=== PATIENT | male | born 1940 | race Caucasian/White ===

== ENCOUNTER 2020-11-26 10:34 | Outpatient (REF) | payer MEDICARE, SELFPAY ==
[2020-11-26 12:11] LABS: MANUAL DIFF FLAG NO
[2020-11-26 12:14] LABS: Basophils Absolute Auto 0.1 X10*3/uL (0.0-0.2); Basophils Percent Auto 0.8 % (0-2); Eosinophils Absolute Auto 0.3 X10*3/uL (0.0-0.4); Eosinophils Percent Auto 4.2 % (0-4); Hematocrit 42.6 % (42-52); Imm Gran Abs Auto 0.02 X10*3/uL (0.00-0.03); Imm Gran Pct Auto 0.3 % (0.0-0.4); Lymphocytes Absolute Auto 1.7 X10*3/uL (1.2-4.9); Lymphocytes Percent Auto 22.5 % (20-40); Mean Corpuscular HGB Conc 32.9 g/dl (31.0-36.0); Mean Corpuscular Hemoglobin 30.6 pg (27.0-33.0); Monocytes Absolute Auto 0.6 X10*3/uL (0.1-1.2); Monocytes Percent Auto 7.8 % (2-11); Neutrophils Absolute Auto 4.8 X10*3/uL (2.0-8.3); Neutrophils Percent Auto 64.4 % (45-73); Platelet Count 138 X10*3/uL (160-400); Red Blood Count 4.58 X10*6/uL (4.60-5.80); Red Cell Distribution Width 12.8 % (11.0-16.0); White Blood Count 7.4 X10*3/uL (4.8-10.8)
[2020-11-26 12:27] LABS: Alanine Aminotransferase 20 U/L (0-40); Albumin Level 4.4 g/dL (3.5-5.0); Alkaline Phosphatase 56 U/L (39-117); Anion Gap 13 (12-20); Aspartate Amino Transferase 23 U/L (5-37); Bilirubin Total 0.4 mg/dL (0.0-1.0); Blood Urea Nitrogen 19 mg/dL (9-16); Carbon Dioxide 27 mmol/L (22-29); Chloride 105 mmol/L (96-108); Cholesterol 169 mg/dL; Estimated Glomerular Filt Rate 59; Glucose Random 132 mg/dL (60-115); HDL Cholesterol 62 mg/dL; LDL Cholesterol Calculated 88 mg/dl; Potassium 4.6 mmol/l (3.3-5.1); Sodium 140 mmol/L (135-145); Total Protein 6.9 g/dL (6.5-8.0); Triglycerides 95 mg/dL
[2020-11-26 12:36] LABS: Creatinine Urine 138.04 mg/dL
[2020-11-26 12:42] LABS: Estimated Average Glucose 157 mg/dL; Hemoglobin A1c % 7.1 %
== END 2020-11-26 10:35 | disposition home or self-care (01) ==
LOC: HO.LAB 10:34
PROVIDERS: PCP Internal Medicine Medical Oncology; Visit Provider Internal Medicine Medical Oncology
DX: I12.9 Hypertensive chronic kidney disease with stage 1 through stage 4 chronic kidney disease, or unspecified chronic kidney disease (principal); E11.22 Type 2 diabetes mellitus with diabetic chronic kidney disease; N18.9 Chronic kidney disease, unspecified; E78.2 Mixed hyperlipidemia; N40.0 Benign prostatic hyperplasia without lower urinary tract symptoms
CPT/HCPCS: 36415; 80053; 80061; 82043; 83036; 84153; 85025

== ENCOUNTER 2021-03-23 08:03 | Outpatient (REF) | payer MEDICARE, SELFPAY ==
[2021-03-23 08:58] LABS: MANUAL DIFF FLAG NO
[2021-03-23 09:01] LABS: Basophils Percent Auto 0.7 % (0-2); Eosinophils Absolute Auto 0.4 X10*3/uL (0.0-0.4); Eosinophils Percent Auto 6.1 % (0-4); Hemoglobin 13.6 g/dl (14.0-18.0); Imm Gran Abs Auto 0.02 X10*3/uL (0.00-0.03); Imm Gran Pct Auto 0.3 % (0.0-0.4); Lymphocytes Absolute Auto 1.8 X10*3/uL (1.2-4.9); Mean Corpuscular HGB Conc 33.2 g/dl (31.0-36.0); Mean Corpuscular Hemoglobin 30.7 pg (27.0-33.0); Mean Corpuscular Volume 92.6 fL (80-98); Monocytes Absolute Auto 0.6 X10*3/uL (0.1-1.2); Monocytes Percent Auto 9.7 % (2-11); Neutrophils Absolute Auto 3.1 X10*3/uL (2.0-8.3); Neutrophils Percent Auto 52.2 % (45-73); Platelet Count 139 X10*3/uL (160-400); Red Blood Count 4.43 X10*6/uL (4.60-5.80); Red Cell Distribution Width 12.7 % (11.0-16.0); White Blood Count 5.9 X10*3/uL (4.8-10.8)
[2021-03-23 09:22] LABS: Alanine Aminotransferase 15 U/L (0-40); Albumin Level 4.4 g/dL (3.5-5.0); Alkaline Phosphatase 54 U/L (39-117); Anion Gap 14 (12-20); Aspartate Amino Transferase 21 U/L (5-37); Bilirubin Total 0.7 mg/dL (0.0-1.0); Blood Urea Nitrogen 21 mg/dL (9-16); Calcium 9.6 mg/dL (8.4-10.2); Carbon Dioxide 27 mmol/L (22-29); Chloride 104 mmol/L (96-108); Cholesterol 155 mg/dL; Estimated Glomerular Filt Rate 57; Glucose Random 151 mg/dL (60-115); HDL Cholesterol 56 mg/dL; LDL Cholesterol Calculated 86 mg/dl; Potassium 4.4 mmol/L (3.3-5.1); Sodium 141 mmol/L (135-145); Total Protein 6.7 g/dL (6.5-8.0); Triglycerides 67 mg/dL
[2021-03-23 09:27] LABS: Estimated Average Glucose 146 mg/dL; Hemoglobin A1c % 6.7 %
[2021-03-23 09:45] LABS: Prostate Specific Antigen 1.06 ng/mL (<0.05-4.0)
[2021-03-23 10:35] LABS: Creatinine Urine 105.25 mg/dL; Microalbum/Creatinine Ratio Ur 5.7 ug/mg cr
== END 2021-03-23 08:04 | disposition home or self-care (01) ==
LOC: HO.LAB 08:03
PROVIDERS: Visit Provider Internal Medicine Medical Oncology
DX: Z12.5 Encounter for screening for malignant neoplasm of prostate (principal); I12.9 Hypertensive chronic kidney disease with stage 1 through stage 4 chronic kidney disease, or unspecified chronic kidney disease; E11.22 Type 2 diabetes mellitus with diabetic chronic kidney disease; N18.9 Chronic kidney disease, unspecified; E78.2 Mixed hyperlipidemia; N40.0 Benign prostatic hyperplasia without lower urinary tract symptoms
CPT/HCPCS: 36415; 80053; 80061; 82043; 83036; 84153; 85025

== ENCOUNTER 2021-06-25 09:27 | Outpatient (REF) | payer MEDICARE, SELFPAY ==
[2021-06-25 10:17] LABS: MANUAL DIFF FLAG NO
[2021-06-25 10:31] LABS: Estimated Average Glucose 154 mg/dL; Hemoglobin A1C 190.6468 umol/L
[2021-06-25 10:37] LABS: Basophils Absolute Auto 0.1 X10*3/uL (0.0-0.2); Basophils Percent Auto 1.2 % (0-2); Eosinophils Absolute Auto 0.3 X10*3/uL (0.0-0.4); Eosinophils Percent Auto 6.1 % (0-4); Hematocrit 40.8 % (42-52); Hemoglobin 13.4 g/dl (14.0-18.0); Imm Gran Abs Auto 0.01 X10*3/uL (0.00-0.03); Imm Gran Pct Auto 0.2 % (0.0-0.4); Lymphocytes Absolute Auto 1.7 X10*3/uL (1.2-4.9); Lymphocytes Percent Auto 29.8 % (20-40); Mean Corpuscular HGB Conc 32.8 g/dl (31.0-36.0); Mean Corpuscular Hemoglobin 30.8 pg (27.0-33.0); Mean Corpuscular Volume 93.8 fL (80-98); Mean Platelet Volume 13.1 fL (9.4-12.4); Monocytes Absolute Auto 0.6 X10*3/uL (0.1-1.2); Monocytes Percent Auto 10.9 % (2-11); Neutrophils Absolute Auto 2.9 X10*3/uL (2.0-8.3); Neutrophils Percent Auto 51.8 % (45-73); Platelet Count 126 X10*3/uL (160-400); Red Blood Count 4.35 X10*6/uL (4.60-5.80); Red Cell Distribution Width 12.6 % (11.0-16.0); White Blood Count 5.6 X10*3/uL (4.8-10.8)
[2021-06-25 10:44] LABS: Alanine Aminotransferase 13 U/L (0-40); Albumin Level 4.2 g/dL (3.5-5.0); Alkaline Phosphatase 57 U/L (39-117); Anion Gap 11 (12-20); Aspartate Amino Transferase 18 U/L (5-37); Bilirubin Total 0.5 mg/dL (0.0-1.0); Blood Urea Nitrogen 25 mg/dL (9-16); Carbon Dioxide 26 mmol/L (22-29); Chloride 109 mmol/L (96-108); Cholesterol 134 mg/dL; Estimated Glomerular Filt Rate > 60; Glucose Fasting 141 mg/dL (60-99); HDL Cholesterol 54 mg/dL; LDL Cholesterol Calculated 72 mg/dl; Potassium 4.5 mmol/L (3.3-5.1); Sodium 141 mmol/L (135-145); Total Protein 6.6 g/dL (6.5-8.0); Triglycerides 44 mg/dL
== END 2021-06-25 09:28 | disposition home or self-care (01) ==
LOC: HO.LAB 09:27
PROVIDERS: PCP Internal Medicine Medical Oncology; Visit Provider Internal Medicine Medical Oncology
DX: I12.9 Hypertensive chronic kidney disease with stage 1 through stage 4 chronic kidney disease, or unspecified chronic kidney disease (principal); N18.9 Chronic kidney disease, unspecified; E11.22 Type 2 diabetes mellitus with diabetic chronic kidney disease; E78.2 Mixed hyperlipidemia; E66.9 Obesity, unspecified
CPT/HCPCS: 36415; 80053; 80061; 83036; 85025

== ENCOUNTER 2021-09-25 11:07 | Outpatient (REF) | payer MEDICARE, SELFPAY ==
[2021-09-25 11:12] LABS: MANUAL DIFF FLAG NO
[2021-09-25 11:53] LABS: Basophils Absolute Auto 0.1 X10*3/uL (0.0-0.2); Basophils Percent Auto 0.8 % (0-2); Eosinophils Absolute Auto 0.3 X10*3/uL (0.0-0.4); Eosinophils Percent Auto 5.5 % (0-4); Hematocrit 43.4 % (42-52); Hemoglobin 14.3 g/dl (14.0-18.0); Imm Gran Abs Auto 0.02 X10*3/uL (0.00-0.03); Imm Gran Pct Auto 0.3 % (0.0-0.4); Lymphocytes Absolute Auto 1.5 X10*3/uL (1.2-4.9); Lymphocytes Percent Auto 24.2 % (20-40); Mean Corpuscular HGB Conc 32.9 g/dl (31.0-36.0); Mean Corpuscular Hemoglobin 31.1 pg (27.0-33.0); Mean Corpuscular Volume 94.3 fL (80-98); Monocytes Absolute Auto 0.5 X10*3/uL (0.1-1.2); Monocytes Percent Auto 8.1 % (2-11); Neutrophils Absolute Auto 3.8 X10*3/uL (2.0-8.3); Neutrophils Percent Auto 61.1 % (45-73); Platelet Count 131 X10*3/uL (160-400); Red Cell Distribution Width 12.8 % (11.0-16.0); White Blood Count 6.2 X10*3/uL (4.8-10.8)
[2021-09-25 12:07] LABS: Estimated Average Glucose 154 mg/dL
[2021-09-25 12:24] LABS: Alanine Aminotransferase 20 U/L (0-40); Albumin Level 4.4 g/dL (3.5-5.0); Alkaline Phosphatase 59 U/L (39-117); Anion Gap 14 (12-20); Aspartate Amino Transferase 23 U/L (5-37); Bilirubin Total 0.5 mg/dL (0.0-1.0); Blood Urea Nitrogen 22 mg/dL (9-16); Calcium 9.3 mg/dL (8.4-10.2); Carbon Dioxide 26 mmol/L (22-29); Chloride 105 mmol/L (96-108); Cholesterol 159 mg/dL; Estimated Glomerular Filt Rate 53; Glucose Fasting 144 mg/dL (60-99); HDL Cholesterol 53 mg/dL; LDL Cholesterol Calculated 88 mg/dl; Sodium 140 mmol/L (135-145); Total Protein 6.9 g/dL (6.5-8.0); Triglycerides 92 mg/dL
== END 2021-09-25 11:08 | disposition home or self-care (01) ==
LOC: HO.LAB 11:07
PROVIDERS: PCP Internal Medicine Medical Oncology; Visit Provider Internal Medicine Medical Oncology
DX: I12.9 Hypertensive chronic kidney disease with stage 1 through stage 4 chronic kidney disease, or unspecified chronic kidney disease (principal); E11.22 Type 2 diabetes mellitus with diabetic chronic kidney disease; N18.9 Chronic kidney disease, unspecified; E78.2 Mixed hyperlipidemia
CPT/HCPCS: 36415; 80053; 80061; 83036; 85025

== ENCOUNTER 2021-10-21 10:50 | Outpatient (REF) | payer MEDICARE, SELFPAY ==
[2021-10-21 10:58] VITALS: BP 144/64; PULSE 68; RESP 16; TEMP 36.3; O2SAT 98
[2021-10-21 11:00] VITALS: BMI 29.2
== END 2021-10-21 10:51 | disposition home or self-care (01) ==
LOC: HO.MS 10:50
PROVIDERS: PCP Internal Medicine Medical Oncology; Visit Provider Ophthalmology
PROC: (CPT 66821; principal; 2021-10-21 13:00)
DX: H26.492 Other secondary cataract, left eye (principal); H40.1131 Primary open-angle glaucoma, bilateral, mild stage; I10 Essential (primary) hypertension; E11.9 Type 2 diabetes mellitus without complications; Z96.1 Presence of intraocular lens; Z79.899 Other long term (current) drug therapy; Z88.0 Allergy status to penicillin
CPT/HCPCS: 66821

== ENCOUNTER 2022-11-05 08:30 | Outpatient (REF) | payer MEDICARE, SELFPAY ==
[2022-11-05 08:58] LABS: MANUAL DIFF FLAG NO
[2022-11-05 10:07] LABS: Basophils Absolute Auto 0.1 X10*3/uL (0.0-0.2); Basophils Percent Auto 1.3 % (0-2); Eosinophils Absolute Auto 0.4 X10*3/uL (0.0-0.4); Eosinophils Percent Auto 6.3 % (0-4); Hemoglobin 13.6 g/dl (14.0-18.0); Imm Gran Abs Auto 0.01 X10*3/uL (0.00-0.03); Imm Gran Pct Auto 0.2 % (0.0-0.4); Lymphocytes Percent Auto 31.2 % (20-40); Mean Corpuscular HGB Conc 33.2 g/dl (31.0-36.0); Mean Corpuscular Hemoglobin 30.2 pg (27.0-33.0); Mean Corpuscular Volume 91.1 fL (80.0-98.0); Mean Platelet Volume 13.6 fL (9.4-12.4); Monocytes Absolute Auto 0.6 X10*3/uL (0.1-1.2); Monocytes Percent Auto 9.2 % (2-11); Neutrophils Absolute Auto 3.3 x10*3/uL (2.0-8.3); Neutrophils Percent Auto 51.8 % (45-73); Platelet Count 130 X10*3/uL (160-400); Red Cell Distribution Width 12.7 % (11.0-16.0); White Blood Count 6.3 X10*3/uL (4.8-10.8)
[2022-11-05 10:30] LABS: Alanine Aminotransferase 24 U/L (0-40); Albumin Level 4.3 g/dL (3.5-5.0); Alkaline Phosphatase 55 U/L (39-117); Anion Gap 13 (12-20); Aspartate Amino Transferase 29 U/L (5-37); Bilirubin Total 0.4 mg/dL (0.0-1.0); Blood Urea Nitrogen 21 mg/dL (9-16); Carbon Dioxide 25 mmol/L (22-29); Chloride 106 mmol/L (96-108); Estimated Glomerular Filt Rate 60; Glucose Random 135 mg/dL (60-115); Potassium 4.6 mmol/L (3.3-5.1); Sodium 139 mmol/L (135-145); Total Protein 6.5 g/dL (6.5-8.0)
[2022-11-05 10:40] LABS: Estimated Average Glucose 154 mg/dL
[2022-11-05 11:10] LABS: Creatinine Urine 87.73 mg/dL; Microalbum/Creatinine Ratio Ur 6.8 ug/mg cr
== END 2022-11-05 08:31 | disposition home or self-care (01) ==
LOC: HO.LAB 08:30
PROVIDERS: PCP Internal Medicine Medical Oncology; Visit Provider Internal Medicine Medical Oncology
DX: E11.22 Type 2 diabetes mellitus with diabetic chronic kidney disease (principal); I12.9 Hypertensive chronic kidney disease with stage 1 through stage 4 chronic kidney disease, or unspecified chronic kidney disease; N18.9 Chronic kidney disease, unspecified; E78.2 Mixed hyperlipidemia
CPT/HCPCS: 36415; 80053; 82043; 83036; 85025

== ENCOUNTER 2022-11-06 13:43 | Outpatient (REF) | payer MEDICARE, SELFPAY ==
[2022-11-11 21:04] LABS: Fecal Fat Qualitative Normal (Normal)
== END 2022-11-06 13:44 | disposition home or self-care (01) ==
LOC: HO.LNP 13:43
PROVIDERS: Visit Provider Internal Medicine Medical Oncology
DX: E78.2 Mixed hyperlipidemia (principal); I12.9 Hypertensive chronic kidney disease with stage 1 through stage 4 chronic kidney disease, or unspecified chronic kidney disease; E11.22 Type 2 diabetes mellitus with diabetic chronic kidney disease; N18.9 Chronic kidney disease, unspecified
CPT/HCPCS: 82705

== ENCOUNTER → 2023-05-04 10:49 | Outpatient (REF) | payer MEDICARE, SELFPAY ==
--- NOTE | 2023-05-04 10:52 | HM_ITS ---
* Total monitoring time about 2 days. * Underlying rhythm is sinus. Average ventricular rate 73/Min. Range 46 to 127/Min. * Frequent ventricular ectopy. [place] of 9%. 17 short runs. Longest 4 beats. * Frequent supraventricular ectopy. [place] of 9.5%. Few brief runs. * No significant pauses or AV blocks. * No patient markers or events in diary. MTDD
== END ==
LOC: HO.CARD 10:49
PROVIDERS: PCP Internal Medicine Medical Oncology; Visit Provider Internal Medicine Medical Oncology
DX: I48.91 Unspecified atrial fibrillation (principal)
CPT/HCPCS: 93225

== ENCOUNTER 2023-07-16 14:35 | Outpatient (AMB) | payer MEDICARE, SELFPAY ==
[2023-07-16 14:38] VITALS: BP 130/60; PULSE 79; BMI 30.4
--- NOTE | 2023-07-16 14:38 | A.OFFVIS_ITS ---
Intake Vital Signs 07/16/23 14:38 Height 5 ft 10 in Weight 211 lb 10.3 oz BMI 30.4 BP 130/60 Blood Pressure Location Lt brachial Position Sitting Pulse 79 Intake Visit Reasons: DEV TECHNICAL MGR/Dr. Garcia/A-fib Intake Note: Business Initiatives Manager/Dr. garcia/afib Health Care Specialist Required: No Allergies amoxicillin Allergy (Unknown, Verified 07/16/23 14:42) hives levofloxacin [Levaquin] Allergy (Unknown, Verified 07/16/23 14:42) Hives procaine [From NOVOCAIN] Allergy (Unknown, Verified 07/16/23 14:42) UNKNOWN shellfish Allergy (Unknown, Uncoded 11/16/19 00:00) anaphylaxis SHELLFISH Adverse Reaction (Severe, Uncoded 08/16/20 16:37) VOMITING Medication List - Last Reconciled 07/16/23 by Simba Garner MD amlodipine 10 mg PO DAILY lisinopril 40 mg PO DAILY metformin ER 500 mg PO DAILY pravastatin 40 mg PO DAILY triamcinolone acetonide 0.1% 1 appl topical BID-TID HPI HPI Comments History of Present Illness Details Thank you for referring Herber in cardiology consultation today for irregular heartbeat. He is a pleasant 83-year-old male with prior history of longstanding hypertension, diabetes as well as hyperlipidemia. He recently on annual physical exam he was noted to have irregular pulse. For this he underwent a 48 hour Holter monitor which showed baseline normal sinus rhythm with frequent PACs. He had no evidence of atrial fibrillation. He was referred here for further evaluation for his cardiac arrhythmias. Patient denies any symptoms of palpitations or prolonged fast heart rate or lightheadedness or syncope. He says he remains very active on a day-to-day basis. Denies any orthopnea, PND, leg edema. Denies any exertional chest pain. He said nighttime now he started noticing that his pulse is slightly irregular when he listens to them. Again he has no symptoms related to it. [facility] Medical History Diabetes mellitus HTN (hypertension) Hyperlipidemia Social History Alcohol intake: current Alcohol intake frequency: holidays/special occasions only Patient Tobacco Use Status: Never used Tobacco Review of Systems ENT Reports dizziness Card Denies chest pain, Denies chest pain at rest, Denies chest pain with activity, Denies rapid heart rate, Denies pedal edema, Denies edema, Denies leg edema, Denies lightheadedness, Denies palpitations, Denies dyspnea, Denies dyspnea on exertion and Denies orthopnea Resp Denies cough, Denies dyspnea and Denies dyspnea on exertion GI Denies hematochezia and Denies change in stool character Musc Denies abnormal gait, Reports limited range of motion, Reports muscle cramps, Denies muscle weakness, Denies numbness, Denies radiating pain into limb, Denies stiffness and Denies tingling Neuro Denies abnormal gait, Reports dizziness, Denies numbness and Denies tingling Endo Denies palpitations Physical Exam Vital Signs: Last Vital Signs Pulse 79 07/16/23 14:38 BP 130/60 07/16/23 14:38 BMI result Body Mass Index 30.4 Const General: cooperative, comfortable, no acute distress, well developed, alert, awake, Physically active and well groomed Nutritional Appearance: well nourished and overweight Orientation/consciousness: patient oriented x3 Limitations: no limitations HEENT Head: Yes normocephalic and Yes atraumatic Neck Neck: Yes trachea midline, Yes supple and Yes no JVD Resp Effort & Inspection: normal respiratory effort Auscultation: clear to auscultation bilaterally Cardio Jugular venous distension: no JVD Palpation: normal PMI Rate: regular rate Rhythm: abnormal rhythm with ectopic beats Heart sounds: S1 normal heart sound present, S2 normal heart sound present, no click, no gallops, no murmurs and no rubs GI Auscultation: normal bowel sounds Skin General skin exam: no rashes or lesions noted Neuro General: patient oriented x3 and no focal motor deficits Extrem General: Yes no clubbing, cyanosis or edema Office Procedures EKG Details: EKG shows normal sinus rhythm with frequent PACs [id number], Complete Assessment & Plan Assessment & Plan (1) Cardiac arrhythmia: Code(s): I49.9 - Cardiac arrhythmia, unspecified Plan: Patient with frequent PACs with total burden of about 9% as well as frequent PVCs with total burden of 9%. Patient has no symptoms whatsoever related to this. Will obtain an echocardiogram to evaluate LV structure and function. No pharmacotherapy is recommended for this as patient is completely asymptomatic. Association between frequent PACs and atrial fibrillation was noted. If he develops any significant symptoms of prolonged fast heart rate he is advised to call me. Advised to avoid stimulants. Participation stress mitigation strategies to be pursued. Continue current risk factor modification. Blood pressure is well optimized. Continue management of diabetes hyperlipidemia through your office. Advised to call me with any exertional symptoms. Will follow up in the clinic in 1 year's time, sooner p.r.n.. Orders: Orders CA echo transthoracic complete Today I49.9 - Cardiac arrhythmia, unspecified Coding Level of Care Code New Pt Level 4 (13113) Diagnoses Cardiac arrhythmia I49.9 CPT Codes EKG - CPT: 21160-[id number], Complete ([id number])
== END 2023-07-16 15:00 | disposition home or self-care (01) ==
PROVIDERS: PCP Internal Medicine Medical Oncology; Referring Provider Internal Medicine Medical Oncology; Visit Provider Internal Medicine Cardiovascular Disease
DX: I49.9 Cardiac arrhythmia, unspecified (principal)
CPT/HCPCS: 93010; 99204

== ENCOUNTER → 2023-07-16 14:35 | Outpatient (BNVA) | payer MEDICARE, SELFPAY | PROVIDERS: PCP Internal Medicine Medical Oncology; Referring Provider Internal Medicine Medical Oncology; Visit Provider Internal Medicine Cardiovascular Disease | DX: I49.9 Cardiac arrhythmia, unspecified (principal) | CPT/HCPCS: 93005; 99202 ==

== ENCOUNTER → 2023-08-20 11:05 | Outpatient (REF) | payer MEDICARE, SELFPAY ==
--- NOTE | 2023-08-20 11:08 | CA_ITS ---
Transthoracic Echocardiogram Patient (Last, First, Middle): Herber Addison, Gender: Male Date of : 1940 Age: 83 Procedure Date: 08/20/2023 Procedure Type: Transthoracic Echocardiogram Location: OP Height: 177.8 cm Weight: 92.53 kg BSA: 2.10 m2 Heart Rate: 100 bpm BP: 140 / 70 mmHg Solar Project Coordination Specialist: TO Referring MD: Simba Garner MD Symptoms: I49.9 - Cardiac arrhythmia, unspecified Study Quality: Adequate w contrast ECG Rhythm: Atrial Fibrillation Conclusions: - Normal left ventricular size and systolic function. There is mildly increased left ventricular wall thickness. The visually estimated ejection fraction is between 55-60%. - Mildly increased right ventricular cavity size. There is normal right ventricular systolic function. Findings Procedure Information Contrast agent, definity, is being given per protocol without apparent complications. Left Ventricle Normal left ventricular size and systolic function. There is mildly increased left ventricular wall thickness. The visually estimated ejection fraction is between 55-60%. There is no evidence of regional wall motion abnormalities. Diastolic function is indeterminate on the basis of available data. Right Ventricle Mildly increased right ventricular cavity size. There is normal right ventricular systolic function. Atria The left atrium is likely dilated. The right atrium is mildly dilated. Aortic Valve There is a normal trileaflet aortic valve. There is mild calcification of the aortic valve. There is no aortic valve stenosis. There is no aortic valve regurgitation. Mitral Valve The mitral valve appears normal. There is no mitral valve regurgitation. There is no mitral valve stenosis. Pulmonic Valve Normal pulmonic valve structure and function. There is no pulmonic valve regurgitation. Tricuspid Valve Normal tricuspid valve structure and function. There is trace tricuspid valve regurgitation. Normal right atrial pressure. There is no evidence of pulmonary hypertension. Great Vessels All visible segments of the aorta are normal in size. The visualized portions of the pulmonary artery and branches are normal. Venous The inferior vena cava is normal in size and collapses greater than 50% with inspiration. Pericardium/Pleural There is no evidence of pericardial effusion. Prior Study Comparison Changes noted compared to prior study dated: 04/15/2019. Diastolic function indeterminate as the patient is in Afib. Measurements 2D Linear Measurements IVSd: 1.40 0.6-0.9/0.6-1.0 cm LVIDd: 4.20 3.9-5.3/4.2-5.9 cm LVIDd Index: 2.00 2.4-3.2/2.2-3.1 cm/m2 LVIDs: 2.60 2.0-3.6 cm LVPWd: 1.00 0.7-1.1 cm LA Diam: 3.90 2.7-3.8/3.0-4.0 cm LAIDs Index: 1.86 1.5-2.3 cm/m2 LV Mass: 221.94 67-162/88-224 g LV Mass Index: 105.69 43-95/49-115 g/m2 LVOT Diam: 2.10 3.0+(-)1.3 cm 2D Systolic Function EF 4C: 62.40 >55% EF 2C: 60.90 >55% EF BiP: 60.60 >55% Mitral Valve MV Pk E: 1.06 MV Decel Time: 188.00 E'Lateral: 11.60 E'Medial: 7.72 E/E' Med: 13.70 E/E' Lat: 9.10 PHT: 55.00 MVA PHT: 4.00 Decel [place]: 5.67 Aortic Valve AoV Pk Ananda: 1.20 AoV Pk Grad: 6.00 SENTHIL: 2.18 LVOT LVOT Pk Ananda: 0.76 LVOT Mn Ananda: 0.52 LVOT VTI: 0.15 LVOT Pk Grad: 2.00 LVOT Mn Grad: 1.00 LVOT Diam: 2.10 LVOT Area: 3.46 Diastolic Function MV Pk E: 1.06 E'Medial: 7.72 E/E' Med: 13.70 E' Laterial: 11.60 E/E' Lat: 9.10 Right Ventricle TAPSE (mm): 25.40 TVS' Ananda: 15.30 Tricuspid Valve TR Pk Ananda: 2.08 TR Pk Grad: 17.00 RA Press: 3.00 RVSP: 20.00 Great Vessels Aorta Sinus of Valsalva: 3.20 2.0-3.5 cm Ao Asc: 3.20 2.1-3.4 cm Updated in Other Vendor System with Status of Final Moses Mae MD electronically signed on 08/22/2023 6:06:11 PM with status of Final
[2023-08-20 12:47] LABS: MANUAL DIFF FLAG NO
[2023-08-20 13:26] LABS: Basophils Absolute Auto 0.1 X10*3/uL (0.0-0.2); Basophils Percent Auto 1.1 % (0-2); Eosinophils Absolute Auto 0.3 X10*3/uL (0.0-0.4); Eosinophils Percent Auto 4.3 % (0-4); Hematocrit 45.1 % (42.0-52.0); Imm Gran Abs Auto 0.01 X10*3/uL (0.00-0.03); Imm Gran Pct Auto 0.2 % (0.0-0.4); Lymphocytes Absolute Auto 1.7 X10*3/uL (1.2-4.9); Lymphocytes Percent Auto 26.3 % (20-40); Mean Corpuscular HGB Conc 33.3 g/dl (31.0-36.0); Mean Corpuscular Hemoglobin 30.7 pg (27.0-33.0); Mean Corpuscular Volume 92.2 fL (80.0-98.0); Mean Platelet Volume 13.1 fL (9.4-12.4); Monocytes Absolute Auto 0.5 X10*3/uL (0.1-1.2); Monocytes Percent Auto 8.6 % (2-11); Neutrophils Absolute Auto 3.8 x10*3/uL (2.0-8.3); Neutrophils Percent Auto 59.5 % (45-73); Platelet Count 145 X10*3/uL (160-400); Red Blood Count 4.89 X10*6/uL (4.60-5.80); Red Cell Distribution Width 12.8 % (11.0-16.0); White Blood Count 6.3 X10*3/uL (4.8-10.8)
[2023-08-20 13:33] LABS: Estimated Average Glucose 154 mg/dL
[2023-08-20 14:07] LABS: Creatinine Urine 57.14 mg/dL; Microalbum/Creatinine Ratio Ur 12.2 ug/mg cr (<30)
[2023-08-20 14:19] LABS: Alanine Aminotransferase 14 U/L (0-40); Albumin Level 4.4 g/dL (3.5-5.0); Alkaline Phosphatase 52 U/L (39-117); Anion Gap 14 (12-20); Aspartate Amino Transferase 19 U/L (5-37); Bilirubin Total 0.5 mg/dL (0.0-1.0); Blood Urea Nitrogen 23 mg/dL (9-16); Calcium 9.4 mg/dL (8.4-10.2); Carbon Dioxide 26 mmol/L (22-29); Chloride 105 mmol/L (96-108); Cholesterol 144 mg/dL (<200); Estimated Glomerular Filt Rate 47; Glucose Fasting 143 mg/dL (60-99); HDL Cholesterol 58 mg/dL (>40); LDL Cholesterol Calculated 71 mg/dL (<100); Potassium 4.9 mmol/L (3.3-5.1); Sodium 140 mmol/L (135-145); Total Protein 7.3 g/dL (6.5-8.0); Triglycerides 76 mg/dL (<150)
== END ==
LOC: HO.CARD 11:05
PROVIDERS: PCP Internal Medicine Medical Oncology; Referring Provider Internal Medicine Medical Oncology; Visit Provider Dentist Orthodontics and Dentofacial Orthopedics
DX: I49.9 Cardiac arrhythmia, unspecified (principal); I12.9 Hypertensive chronic kidney disease with stage 1 through stage 4 chronic kidney disease, or unspecified chronic kidney disease; E11.22 Type 2 diabetes mellitus with diabetic chronic kidney disease; N18.9 Chronic kidney disease, unspecified; E78.2 Mixed hyperlipidemia
CPT/HCPCS: 36415; 80053; 80061; 82043; 82570; 83036; 85025; 93306; Q9957

== ENCOUNTER → 2023-08-20 11:08 | Outpatient (BNV) | payer MEDICARE, SELFPAY | PROVIDERS: PCP Internal Medicine Medical Oncology; Referring Provider Internal Medicine Medical Oncology; Visit Provider Internal Medicine Cardiovascular Disease | DX: I48.91 Unspecified atrial fibrillation (principal) | CPT/HCPCS: 93306 ==

== ENCOUNTER 2023-11-18 10:58 | Outpatient (REF) | payer MEDICARE, SELFPAY ==
[2023-11-18 11:14] LABS: MANUAL DIFF FLAG NO
[2023-11-18 13:04] LABS: Basophils Absolute Auto 0.1 X10*3/uL (0.0-0.2); Basophils Percent Auto 0.8 % (0-2); Eosinophils Absolute Auto 0.4 X10*3/uL (0.0-0.4); Eosinophils Percent Auto 5.8 % (0-4); Hematocrit 44.7 % (42.0-52.0); Hemoglobin 14.7 g/dl (14.0-18.0); Imm Gran Abs Auto 0.02 X10*3/uL (0.00-0.03); Imm Gran Pct Auto 0.3 % (0.0-0.4); Lymphocytes Absolute Auto 1.7 X10*3/uL (1.2-4.9); Lymphocytes Percent Auto 28.7 % (20-40); Mean Corpuscular HGB Conc 32.9 g/dl (31.0-36.0); Mean Corpuscular Hemoglobin 30.4 pg (27.0-33.0); Mean Corpuscular Volume 92.4 fL (80.0-98.0); Mean Platelet Volume 13.1 fL (9.4-12.4); Monocytes Absolute Auto 0.5 X10*3/uL (0.1-1.2); Monocytes Percent Auto 8.7 % (2-11); Neutrophils Absolute Auto 3.4 x10*3/uL (2.0-8.3); Neutrophils Percent Auto 55.7 % (45-73); Platelet Count 133 X10*3/uL (160-400); Red Blood Count 4.84 X10*6/uL (4.60-5.80); Red Cell Distribution Width 13.1 % (11.0-16.0); White Blood Count 6.1 X10*3/uL (4.8-10.8)
[2023-11-18 13:08] LABS: Estimated Average Glucose 160 mg/dL; Hemoglobin A1c % 7.2 % (<6.0)
[2023-11-18 13:41] LABS: Alanine Aminotransferase 13 U/L (0-40); Albumin Level 4.2 g/dL (3.5-5.0); Alkaline Phosphatase 53 U/L (39-117); Anion Gap 15 (12-20); Aspartate Amino Transferase 18 U/L (5-37); Bilirubin Total 0.6 mg/dL (0.0-1.0); Blood Urea Nitrogen 23 mg/dL (9-16); Calcium 9.3 mg/dL (8.4-10.2); Carbon Dioxide 25 mmol/L (22-29); Chloride 105 mmol/L (96-108); Cholesterol 147 mg/dL (<200); Estimated Glomerular Filt Rate 59; Glucose Fasting 138 mg/dL (60-99); HDL Cholesterol 58 mg/dL (>40); LDL Cholesterol Calculated 75 mg/dL (<100); Potassium 4.6 mmol/L (3.3-5.1); Sodium 140 mmol/L (135-145); Total Protein 7.1 g/dL (6.5-8.0); Triglycerides 71 mg/dL (<150)
[2023-11-18 14:03] LABS: Creatinine Urine 76.25 mg/dL; Microalbum/Creatinine Ratio Ur 6.5 ug/mg cr (<30)
== END 2023-11-18 10:59 | disposition home or self-care (01) ==
LOC: HO.LAB 10:58
PROVIDERS: PCP Internal Medicine Medical Oncology; Visit Provider Internal Medicine Medical Oncology
DX: E11.22 Type 2 diabetes mellitus with diabetic chronic kidney disease (principal); N18.9 Chronic kidney disease, unspecified; E66.9 Obesity, unspecified
CPT/HCPCS: 36415; 80053; 80061; 82043; 82570; 83036; 85025

== ENCOUNTER 2024-04-20 10:25 | Outpatient (REF) | payer MEDICARE, SELFPAY ==
[2024-04-20 10:41] LABS: MANUAL DIFF FLAG NO
[2024-04-20 11:07] LABS: Basophils Absolute Auto 0.1 X10*3/uL (0.0-0.2); Basophils Percent Auto 1.1 % (0-2); Eosinophils Absolute Auto 0.6 X10*3/uL (0.0-0.4); Hematocrit 43.4 % (42.0-52.0); Hemoglobin 14.3 g/dl (14.0-18.0); Imm Gran Abs Auto 0.02 X10*3/uL (0.00-0.03); Imm Gran Pct Auto 0.3 % (0.0-0.4); Lymphocytes Absolute Auto 1.7 X10*3/uL (1.2-4.9); Lymphocytes Percent Auto 26.5 % (20-40); Mean Corpuscular HGB Conc 32.9 g/dl (31.0-36.0); Mean Corpuscular Hemoglobin 30.5 pg (27.0-33.0); Mean Corpuscular Volume 92.5 fL (80.0-98.0); Mean Platelet Volume 12.3 fL (9.4-12.4); Monocytes Absolute Auto 0.6 X10*3/uL (0.1-1.2); Monocytes Percent Auto 8.7 % (2-11); Neutrophils Absolute Auto 3.4 x10*3/uL (2.0-8.3); Neutrophils Percent Auto 53.4 % (45-73); Platelet Count 114 X10*3/uL (160-400); Red Blood Count 4.69 X10*6/uL (4.60-5.80); Red Cell Distribution Width 13.5 % (11.0-16.0); White Blood Count 6.3 X10*3/uL (4.8-10.8)
[2024-04-20 11:19] LABS: Estimated Average Glucose 169 mg/dL; Hemoglobin A1c % 7.5 % (<6.0)
[2024-04-20 11:45] LABS: Alanine Aminotransferase 17 U/L (0-40); Alkaline Phosphatase 47 U/L (39-117); Anion Gap 14 (12-20); Aspartate Amino Transferase 20 U/L (5-37); Bilirubin Total 0.6 mg/dL (0.0-1.0); Blood Urea Nitrogen 18 mg/dL (9-16); Calcium 9.2 mg/dL (8.4-10.2); Carbon Dioxide 23 mmol/L (22-29); Chloride 106 mmol/L (96-108); Cholesterol 157 mg/dL (<200); Estimated Glomerular Filt Rate 56; Glucose Fasting 158 mg/dL (60-99); HDL Cholesterol 54 mg/dL (>40); LDL Cholesterol Calculated 85 mg/dL (<100); Potassium 4.7 mmol/L (3.3-5.1); Sodium 138 mmol/L (135-145); Total Protein 6.9 g/dL (6.5-8.0); Triglycerides 92 mg/dL (<150)
[2024-04-20 11:49] LABS: Prostate Specific Antigen 1.32 ng/mL (<0.05-4.0)
[2024-04-20 12:41] LABS: Creatinine Urine 109.79 mg/dL; Microalbumin Urine < 5.0 mg/L
== END 2024-04-20 10:26 | disposition home or self-care (01) ==
LOC: HO.LAB 10:25
PROVIDERS: PCP Internal Medicine Medical Oncology; Visit Provider Internal Medicine Medical Oncology
DX: E11.22 Type 2 diabetes mellitus with diabetic chronic kidney disease (principal); I10 Essential (primary) hypertension; E78.2 Mixed hyperlipidemia; N40.0 Benign prostatic hyperplasia without lower urinary tract symptoms; Z12.5 Encounter for screening for malignant neoplasm of prostate
CPT/HCPCS: 36415; 80053; 80061; 82570; 83036; 84153; 85025

== ENCOUNTER 2024-07-13 12:39 | Outpatient (AMB) | payer MEDICARE, SELFPAY ==
[2024-07-13 12:48] VITALS: BP 120/78; PULSE 78; BMI 30.4
--- NOTE | 2024-07-13 12:48 | A.OFFVIS_ITS ---
Vital Signs 07/13/24 12:48 Height 5 ft 10 in Weight 211 lb 10.3 oz BMI 30.4 BP 120/78 Blood Pressure Location Lt brachial Position Sitting Pulse 78 Intake Visit Reasons: 1 year follow up Intake Note: 1 year follow-up with ekg feeling good Scales Inspector Required: No Allergies amoxicillin Allergy (Unknown, Verified 07/16/23 14:42) hives levofloxacin [Levaquin] Allergy (Unknown, Verified 07/16/23 14:42) Hives procaine [From NOVOCAIN] Allergy (Unknown, Verified 07/16/23 14:42) UNKNOWN shellfish Allergy (Unknown, Uncoded 11/16/19 00:00) anaphylaxis SHELLFISH Adverse Reaction (Severe, Uncoded 08/16/20 16:37) VOMITING Medication List - Last Reconciled 07/13/24 by Simba Garner MD amlodipine 10 mg PO DAILY lisinopril 40 mg PO DAILY metformin ER 500 mg PO DAILY pravastatin 40 mg PO DAILY triamcinolone acetonide 0.1% 1 appl topical BID-TID HPI Comments Details: Herber comes for annual follow-up of his cardiac arrhythmia. Last year he had frequent PACs and PVCs. He comes back and noted on EKG to have atrial fibrillation. He does not notice any new symptoms. Denies any symptoms of prolonged palpitation irregular heartbeat. Denies any lightheadedness, syncope. Denies any significant shortness of breath, fatigue, orthopnea, PND, leg edema. No exertional chest pain. [facility] Medical History Hyperlipidemia Diabetes mellitus HTN (hypertension) Social History Alcohol intake: current Alcohol intake frequency: holidays/special occasions only Patient Tobacco Use Status: Never used Tobacco Review of Systems Const Denies chills, Denies fatigue, Denies fever(s), Denies frequent falls, Denies weakness, Denies weight gain and Denies weight loss ENT Denies dizziness Card Denies chest pain, Denies leg edema, Denies lightheadedness, Denies palpitations, Denies dyspnea, Denies dyspnea on exertion, Denies orthopnea and Denies other (loss of consciousness) Resp Denies cough, Denies dyspnea and Denies dyspnea on exertion GI Denies hematochezia and Denies change in stool character Musc Denies abnormal gait, Denies muscle weakness, Denies numbness, Denies radiating pain into limb and Denies tingling Neuro Denies abnormal gait, Denies dizziness, Denies frequent falls, Denies numbness, Denies tingling and Denies weakness Endo Denies fatigue and Denies palpitations Physical Exam Vital Signs: Last Vital Signs Pulse 78 07/13/24 12:48 BP 120/78 07/13/24 12:48 BMI result Body Mass Index 30.4 Const General: cooperative, comfortable, no acute distress, well developed, alert, awake, Physically active and well groomed Nutritional Appearance: well nourished and overweight Orientation/consciousness: patient oriented x3 Limitations: no limitations HEENT Head: Yes normocephalic and Yes atraumatic Neck Neck: Yes trachea midline, Yes supple and Yes no JVD Resp Effort & Inspection: normal respiratory effort Auscultation: clear to auscultation bilaterally Cardio Jugular venous distension: no JVD Palpation: normal PMI Rate: regular rate Rhythm: abnormal rhythm irregularly irregular Heart sounds: S1 normal heart sound present, S2 normal heart sound present, no click, no gallops, no murmurs and no rubs GI Auscultation: normal bowel sounds Skin General skin exam: no rashes or lesions noted Neuro General: patient oriented x3 and no focal motor deficits Extrem General: Yes no clubbing, cyanosis or edema Assessment & Plan Assessment & Plan (1) Persistent atrial fibrillation: Comment: Newly detected, June 2024 Code(s): I48.19 - Other persistent atrial fibrillation Category: Medical Plan: New onset persistent atrial fibrillation this elderly gentleman without any new symptoms or signs of cardiac decompensation. He is not even aware that his heart is irregular. Unclear as to the duration of atrial fibrillation. Her clinically there is no signs of congestive heart failure. His heart rate is well controlled on current therapy without any rate lowering medication. Will follow-up Holter monitor in near future. Will also follow up with echocardiogram near future. CHADSVASc score of at least 4. Strongly recommend full oral anticoagulation therapy. Last creatinine of 1.23. Will start him on Eliquis 5 mg b.i.d.. Risks, benefits, alternatives with the oral anticoagulant were discussed. He understands agreeable to start oral anticoagulant therapy. Continue aggressive blood pressure control which is currently well optimized Will follow up in 3 months time. If he has no further symptoms or signs of cardiac decompensation will pursue rate control approach. Orders: Orders CA echo transthoracic complete Today I48.19 - Other persistent atrial fibrillation Medications: New apixaban (Eliquis) 5 mg PO BID 60 tabs 5RF Coding Level of Care Code Est Pt Level 4 (85329) Diagnoses Persistent atrial fibrillation I48.19
== END 2024-07-13 13:56 | disposition home or self-care (01) ==
PROVIDERS: PCP Internal Medicine Medical Oncology; Visit Provider Internal Medicine Cardiovascular Disease
DX: I48.19 Other persistent atrial fibrillation (principal)
CPT/HCPCS: 99214

== ENCOUNTER → 2024-07-13 12:39 | Outpatient (BNVA) | payer MEDICARE, SELFPAY | PROVIDERS: PCP Internal Medicine Medical Oncology; Visit Provider Internal Medicine Cardiovascular Disease | DX: I48.19 Other persistent atrial fibrillation (principal) | CPT/HCPCS: 99212 ==

== ENCOUNTER → 2024-08-18 09:51 | Outpatient (REF) | payer MEDICARE, SELFPAY ==
--- NOTE | 2024-08-18 09:56 | CA_ITS ---
Transthoracic Echocardiogram Patient (Last, First, Middle): Herber Addison, Gender: Male Date of : 1940 Age: 84 Procedure Date: 08/18/2024 Procedure Type: Transthoracic Echocardiogram Location: OP Height: 177.8 cm Weight: 95.26 kg BSA: 2.13 m2 Heart Rate: bpm BP: 110 / 60 mmHg Tree Killer: TO Referring MD: Simba Garner MD Military Personnel Specialist: Simba Garner MD Symptoms: I48.19 - Other persistent atrial fibrillation Study Quality: Adequate w contrast ECG Rhythm: Atrial Fibrillation Conclusions: - 1. Normal LV ejection fraction of 55-60% 2. At least mildly dilated left atrium 3. Normal cardiac valvular Dopplers 4. Normal RV systolic pressure Findings Procedure Information Contrast agent, definity, is being given per protocol without apparent complications. Left Ventricle Normal left ventricular size and systolic function. There is mildly increased left ventricular wall thickness. The visually estimated ejection fraction is between 55-60%. Diastolic function is indeterminate on the basis of available data. Right Ventricle The right ventricle was not well visualized. Atria The left atrium is mildly dilated. Interatrial shunt cannot be excluded. The right atrium was not well visualized. Aortic Valve There is mild calcification of the aortic valve. There is mild thickening of the aortic valve. There is no aortic valve stenosis. There is no aortic valve regurgitation. Mitral Valve There is mild anterior mitral leaflet thickening. There is trace mitral valve regurgitation. There is no mitral valve stenosis. Pulmonic Valve The pulmonic valve was not well visualized. Tricuspid Valve Likely normal tricuspid valve structure and function. There is trace tricuspid valve regurgitation. The right ventricular systolic pressure is normal. The right ventricular systolic pressure is 18 mmHg. Normal right atrial pressure. There is no evidence of pulmonary hypertension. Great Vessels The pulmonary artery was not well visualized. There is no dilatation of the ascending aorta measuring 3.30 cm. Venous The inferior vena cava is normal in size and collapses greater than 50% with inspiration. Pericardium/Pleural There is no evidence of pericardial effusion. Measurements 2D Linear Measurements IVSd: 1.14 0.6-0.9/0.6-1.0 cm LVIDd: 4.23 3.9-5.3/4.2-5.9 cm LVIDd Index: 1.99 2.4-3.2/2.2-3.1 cm/m2 LVIDs: 2.50 2.0-3.6 cm LVPWd: 1.22 0.7-1.1 cm LA Diam: 4.00 2.7-3.8/3.0-4.0 cm LAIDs Index: 1.88 1.5-2.3 cm/m2 LV Mass: 218.92 67-162/88-224 g LV Mass Index: 102.78 43-95/49-115 g/m2 LVOT Diam: 2.10 3.0+(-)1.3 cm 2D Systolic Function EF 4C: 56.00 >55% EF 2C: 51.80 >55% EF BiP: 54.50 >55% Mitral Valve MV Pk E: 0.87 MV Decel Time: 219.00 E'Lateral: 8.31 E'Medial: 6.60 E/E' Med: 13.10 E/E' Lat: 10.40 PHT: 64.00 MVA PHT: 3.44 Decel [place]: 3.97 Aortic Valve AoV Pk Ananda: 1.08 AoV Pk Grad: 5.00 LVOT LVOT Pk Ananda: 0.70 LVOT Mn Ananda: 0.50 LVOT VTI: 0.15 LVOT Pk Grad: 2.00 LVOT Mn Grad: 1.00 LVOT Diam: 2.10 LVOT Area: 3.46 Diastolic Function MV Pk E: 0.87 E'Medial: 6.60 E/E' Med: 13.10 E' Laterial: 8.31 E/E' Lat: 10.40 Right Ventricle TAPSE (mm): 18.10 TVS' Ananda: 10.70 Tricuspid Valve TR Pk Ananda: 1.95 TR Pk Grad: 15.00 RA Press: 3.00 RVSP: 18.00 Great Vessels Aorta Sinus of Valsalva: 3.07 2.0-3.[address] [place]: 2.58 1.7-3.4 cm Ao Asc: 3.30 2.1-3.4 cm Updated in Other Vendor System with Status of Final Simba Garner MD electronically signed on 08/19/2024 9:43:10 AM with status of Final
--- NOTE | 2024-08-18 09:56 | HM_ITS ---
* Total monitoring time 3 days. * Underlying rhythm is atrial fibrillation. Average ventricular rate 82/Min. About 8% of the time, rate > 100/Min. * Occasional ventricular ectopy with a burden of 1.4%. Evidence of couplets, rare triplets, bigeminy, trigeminy. * No significant pauses. * No patient markers. Diary not submitted. MTDD
== END ==
LOC: HO.CARD 09:51
PROVIDERS: PCP Internal Medicine Medical Oncology; Visit Provider Internal Medicine Cardiovascular Disease
DX: I48.19 Other persistent atrial fibrillation (principal)
CPT/HCPCS: 93242; 93306; Q9957

== ENCOUNTER → 2024-08-18 09:56 | Outpatient (BNV) | payer MEDICARE, SELFPAY | PROVIDERS: PCP Internal Medicine Medical Oncology; Visit Provider Internal Medicine Cardiovascular Disease | DX: I48.91 Unspecified atrial fibrillation (principal) | CPT/HCPCS: 93244; 93306 ==

== ENCOUNTER 2024-08-22 10:25 | Outpatient (REF) | payer MEDICARE, SELFPAY ==
[2024-08-22 10:42] LABS: MANUAL DIFF FLAG NO
[2024-08-22 10:52] LABS: Basophils Absolute Auto 0.1 X10*3/uL (0.0-0.2); Basophils Percent Auto 0.9 % (0-2); Eosinophils Absolute Auto 0.3 X10*3/uL (0.0-0.4); Eosinophils Percent Auto 4.8 % (0-4); Hematocrit 42.7 % (42.0-52.0); Hemoglobin 14.3 g/dl (14.0-18.0); Imm Gran Abs Auto 0.02 X10*3/uL (0.00-0.03); Imm Gran Pct Auto 0.3 % (0.0-0.4); Lymphocytes Absolute Auto 1.4 X10*3/uL (1.2-4.9); Lymphocytes Percent Auto 20.2 % (20-40); Mean Corpuscular HGB Conc 33.5 g/dl (31.0-36.0); Mean Corpuscular Hemoglobin 30.6 pg (27.0-33.0); Mean Corpuscular Volume 91.4 fL (80.0-98.0); Mean Platelet Volume 12.8 fL (9.4-12.4); Monocytes Absolute Auto 0.6 X10*3/uL (0.1-1.2); Monocytes Percent Auto 8.3 % (2-11); Neutrophils Absolute Auto 4.6 x10*3/uL (2.0-8.3); Neutrophils Percent Auto 65.5 % (45-73); Platelet Count 127 X10*3/uL (160-400); Red Blood Count 4.67 X10*6/uL (4.60-5.80); Red Cell Distribution Width 12.9 % (11.0-16.0)
[2024-08-22 10:57] LABS: Estimated Average Glucose 163 mg/dL; Hemoglobin A1c % 7.3 % (<6.0)
[2024-08-22 11:25] LABS: Alanine Aminotransferase 16 U/L (0-40); Albumin Level 4.3 g/dL (3.5-5.0); Alkaline Phosphatase 52 U/L (39-117); Anion Gap 12 (12-20); Aspartate Amino Transferase 18 U/L (5-37); Bilirubin Total 0.5 mg/dL (0.0-1.0); Blood Urea Nitrogen 19 mg/dL (9-16); Calcium 9.3 mg/dL (8.4-10.2); Carbon Dioxide 26 mmol/L (22-29); Chloride 108 mmol/L (96-108); Cholesterol 140 mg/dL (<200); Estimated Glomerular Filt Rate 56; Glucose Fasting 143 mg/dL (60-99); HDL Cholesterol 53 mg/dL (>40); LDL Cholesterol Calculated 70 mg/dL (<100); Potassium 4.1 mmol/L (3.3-5.1); Sodium 142 mmol/L (135-145); Triglycerides 89 mg/dL (<150)
[2024-08-22 12:34] LABS: Creatinine Urine 110.76 mg/dL; Microalbum/Creatinine Ratio Ur 6.3 ug/mg cr (<30)
== END 2024-08-22 10:26 | disposition home or self-care (01) ==
LOC: HO.LAB 10:25
PROVIDERS: PCP Internal Medicine Medical Oncology; Visit Provider Internal Medicine Medical Oncology
DX: E11.22 Type 2 diabetes mellitus with diabetic chronic kidney disease (principal)
CPT/HCPCS: 36415; 80053; 80061; 82043; 82570; 83036; 85025

== ENCOUNTER 2024-10-17 14:21 | Outpatient (AMB) | payer MEDICARE, SELFPAY ==
--- NOTE | 2024-10-17 14:27 | A.OFFVIS_ITS ---
Vital Signs 10/17/24 14:29 Height 5 ft 10 in Weight 218 lb 4.122 oz BMI 31.3 BP 110/68 Blood Pressure Location Lt brachial Position Sitting Pulse 76 Intake Visit Reasons: 3m follow up Intake Note: 3 month follow-up feeling good Occupational Health And Safety Adviser Required: No Allergies amoxicillin Allergy (Unknown, Verified 07/16/23 14:42) hives levofloxacin [Levaquin] Allergy (Unknown, Verified 07/16/23 14:42) Hives procaine [From NOVOCAIN] Allergy (Unknown, Verified 07/16/23 14:42) UNKNOWN shellfish Allergy (Unknown, Uncoded 11/16/19 00:00) anaphylaxis SHELLFISH Adverse Reaction (Severe, Uncoded 08/16/20 16:37) VOMITING Medication List - Last Reconciled 10/17/24 by Simba Garner MD amlodipine 10 mg PO DAILY apixaban (Eliquis) 5 mg PO BID lisinopril 40 mg PO DAILY metformin ER 500 mg PO DAILY pravastatin 40 mg PO DAILY triamcinolone acetonide 0.1% 1 appl topical BID-TID HPI Comments Details: Herber comes for follow-up. He says he has been noticing reducing exercise capacity with symptoms of exertional fatigue especially when he walks around the block. These are new symptoms. Denies any significant worsening shortness of breath although he does say he gets back pain he has to stop to catch his breath. Denies orthopnea, PND, leg edema. No lightheadedness, syncope. No bleeding issues or neurologic events. Tolerating his medications well. [facility] Medical History Hyperlipidemia Diabetes mellitus HTN (hypertension) Social History Alcohol intake: current Alcohol intake frequency: holidays/special occasions only Patient Tobacco Use Status: Never used Tobacco Review of Systems Const Denies chills, Denies fatigue, Denies fever(s), Denies frequent falls, Denies weakness, Denies weight gain and Denies weight loss ENT Denies dizziness Card Denies chest pain, Denies leg edema, Denies lightheadedness, Denies palpitations, Denies dyspnea, Denies dyspnea on exertion, Denies orthopnea and Denies other (loss of consciousness) Resp Denies cough, Denies dyspnea and Denies dyspnea on exertion GI Denies hematochezia and Denies change in stool character Musc Denies abnormal gait, Denies muscle weakness, Denies numbness, Denies radiating pain into limb and Denies tingling Neuro Denies abnormal gait, Denies dizziness, Denies frequent falls, Denies numbness, Denies tingling and Denies weakness Endo Denies fatigue and Denies palpitations Physical Exam Vital Signs: Last Vital Signs Pulse 76 10/17/24 14:29 BP 110/68 10/17/24 14:29 BMI result Body Mass Index 31.3 Const General: cooperative, comfortable, no acute distress, well developed, alert, awake, Physically active and well groomed Nutritional Appearance: well nourished and overweight Orientation/consciousness: patient oriented x3 Limitations: no limitations HEENT Head: Yes normocephalic and Yes atraumatic Neck Neck: Yes trachea midline, Yes supple and Yes no JVD Resp Effort & Inspection: normal respiratory effort Auscultation: clear to auscultation bilaterally Cardio Jugular venous distension: no JVD Palpation: normal PMI Rate: regular rate Rhythm: abnormal rhythm irregularly irregular Heart sounds: S1 normal heart sound present, S2 normal heart sound present, no click, no gallops, no murmurs and no rubs GI Auscultation: normal bowel sounds Skin General skin exam: no rashes or lesions noted Neuro General: patient oriented x3 and no focal motor deficits Extrem General: Yes no clubbing, cyanosis or edema Office Procedures EKG Details: EKG shows atrial fibrillation with septal QS pattern [id number], Complete Assessment & Plan Assessment & Plan (1) Persistent atrial fibrillation: Comment: Newly detected, June 2024 Code(s): I48.19 - Other persistent atrial fibrillation Category: Medical Plan: Persistent atrial fibrillation having symptoms due to loss of AV synchrony. Having symptoms of exertional fatigue. I think he will benefit from rhythm control approach. We discussed about the process of rhythm control approach. Will most likely need antiarrhythmic drug, will start Multaq 400 mg b.i.d. to help with maintain rhythm. Mechanism of action of antiarrhythmic drugs was discussed. Will need synchronized cardioversion after that. Continue full oral anticoagulation with apixaban. Will follow-up after synchronized cardioversion to see if he has improvement in his clinical symptoms. Follow up in the clinic in 2 months time, sooner p.r.n.. Thank you for allowing me to partake in his care Orders: Orders Cardioversion 2 Weeks I48.19 - Other persistent atrial fibrillation Medications: New dronedarone (Multaq) must administer with a meal/food 400 mg PO BID 60 tabs 5RF Coding Level of Care Code Est Pt Level 4 (16667) Diagnoses Persistent atrial fibrillation I48.19 CPT Codes EKG - CPT: 32581-[id number], Complete ([id number])
[2024-10-17 14:29] VITALS: BP 110/68; PULSE 76; BMI 31.3
== END 2024-10-17 15:03 | disposition home or self-care (01) ==
PROVIDERS: PCP Internal Medicine Medical Oncology; Visit Provider Internal Medicine Cardiovascular Disease
DX: I48.19 Other persistent atrial fibrillation (principal)
CPT/HCPCS: 93010; 99214

== ENCOUNTER → 2024-10-17 14:21 | Outpatient (BNVA) | payer MEDICARE, SELFPAY | PROVIDERS: PCP Internal Medicine Medical Oncology; Visit Provider Internal Medicine Cardiovascular Disease | DX: I48.19 Other persistent atrial fibrillation (principal) | CPT/HCPCS: 93005; 99212 ==

== ENCOUNTER 2024-11-11 12:04 | Day surgery (SDC) | payer MEDICARE, SELFPAY ==
--- OUTSIDE RECORDS SUMMARY | 2024-11-08 14:31 | XMS_ITS | Patient Health Record ---
Author Organization Carlos Alberto Sharpe III, MD Address [address] [place] [address] Care Team Providers Care Manufacturing Business Analyst Name Role Phone Carlos Alberto Sharpe Primary Care Provider Allergies Allergen (clinical drug ingredient) Drug/Non Drug Allergy documented on EMR Reaction Allergy Type Onset Date Status amoxicillin Amoxicillin Unknown Drug Allergy Act nancy Results Component Value Reference Range Notes URINE DIP STICK Reviewed date:04/27/2024 11:52:33 AM Interpretation: Performing Lab: Notes/Report: SG 1.020 1.005 - 1.025 pH 5.0 5.0 - 9.0 MIR 125 Negative - NIT Negative Negative - PRO 15 Negative - Trace GLU Negative Negative - KET Negative Negative - UBG 0.2 0.1 - 1.8 ROME 1 0.2 - 1.3 BLD Negative Negative - Menstrating N/A Complete Blood Count Auto Di ff Reviewed date:11/26/2023 09:39:30 AM Interpretation: Performing Lab:[facility], [address] [place] [phone] Notes/Report: White Blood Count 6.1 4.8-10.8 X10*3/uL Red Blood Count 4.84 4.60-5.80 X10*6/uL Hemoglobin 14.7 14.0-18.0 g/dl Hematocrit 44.7 42.0-52.0 % Mean Corpuscular Volume 92.4 80.0-98.0 fL Mean Corpuscular Hemoglobin 30.4 27.0-33.0 pg Mean Corpuscular HGB Conc 32.9 31.0-36.0 g/dl Red Cell Distribution Width 13.1 11.0-16.0 % Platelet Count 133 160-400 X10*3/uL Mean Platelet Volume 13.1 9.4-12.4 fL Neutrophils Percent Auto 55.7 45-73 % Imm Gran Pct Auto 0.3 0.0-0.4 % Lymphocytes Percent Auto 28.7 20-40 % Monocytes Percent Auto 8.7 2-11 % Eosinophils Percent Auto 5.8 0-4 % Basophils Percent Auto 0.8 0-2 % NRBC Pct Auto 0.0 0.0-0.2 /100WBC Neutrophils Absolute Auto 3.4 2.0-8.3 x10*3/u L Imm Gran Abs Auto 0.02 0.00-0.03 X10*3/uL Lymphocytes Absolute Auto 1.7 1.2-4.9 X10*3/u L Monocytes Absolute Auto 0.5 0.1-1.2 X10*3/uL Eosinophils Absolute Auto 0.4 0.0-0.4 X10*3/u L Basophils Absolute Auto 0.1 0.0-0.2 X10*3/uL NRBC Abs Auto 0.000 0.0-0.012 X10*3/uL Comprehensive [place]. Panel Fa st Reviewed date:11/26/2023 09:39:30 AM Interpretation: Performing Lab:[facility], [address] [place] [phone] Notes/Report: Sodium 140 135-145 mmol/L Potassium 4.6 3.3-5.1 mmol/L Chloride 105 96-108 mmol/L Carbon Dioxide 25 22-29 mmol/L Anion Gap 15 12-20 Blood Urea Nitrogen 23 9-16 mg/dL Creatinine 1.17 0.5-1.4 mg/dL Estimated Glomerular Filt Rate 59 NOTE: For -Angolan individuals, multiply the result by 1.210. Chronic Kidney Disease: Estimated GFR < 60 mL/min/1.73m2 Severe Kidney Disease: Estimated GFR < 15 mL/min/1.73m2 Glucose Fasting 138 60-99 mg/dL A fasting glucose of 126 mg/dl or greater on more than one occasion is considered diagnostic of diabetes. Calcium 9.3 8.4-10.2 mg/dL Bilirubin Total 0.6 0.0-1.0 mg/dL Aspartate Amino Transferase 18 5-37 U/L Alanine Aminotransferase 13 0-40 U/L Total Protein 7.1 6.5-8.0 g/dL Albumin Level 4.2 3.5-5.0 g/dL Alkaline Phosphatase 53 39-117 U/L Lipid Panel Reviewed date:11/26/2023 09:39:30 AM Interpretation: Performing Lab:[address] [phone] Notes/Report: Triglycerides 71 <150 mg/dL Desirable Triglyceride: less than 150 mg/dL Borderline High Triglyceride 150-199 mg/dL High Triglyceride: 200-499 mg/dL Very High Triglyceride: greater than or equal to 5OO mg/dL Cholesterol 147 <200 mg/dL Desirable Cholesterol: less than 200 mg/dL Borderline High Cholesterol: 200-239 mg/dL High Cholesterol: greater than 239 mg/dL LDL Cholesterol Calculated 75 <100 mg/dL Desirable LDL: less than 100 mg/dL Near Optimal/Above Optimal LDL: 110-129 mg/dL Borderline High LDL: 130-159 mg/dL High LDL: 160-189 mg/dL Very High LDL: greater than or equal to 190 mg/dL HDL Cholesterol 58 >40 mg/dL Desirable HDL: greater than 40 mg/dL Note: This HDL assay may give artificially low results in patients with liver disease. Microalbumin, Random Reviewed date:11/26/2023 09:39:30 AM Interpretation: Performing Lab:[facility], [address] [place] [phone] Notes/Report: Creatinine Urine 76.25 Microalbumin Urine 5.0 Microalbum/Creatinine Ratio Ur 6.5 <30 ug/mg cr Albumin/Creatinine Ratio Reference Ranges: Normal: < 30 ug/mg creatinine Microalbuminuria: 30 - 300 ug/mg creatinine Clinical Albuminuria: > 300 ug/mg creatinine Hemoglobin A1c Reviewed date:11/26/2023 09:39:30 AM Interpretation: Performing Lab:[address] [phone] Notes/Report: Hemoglobin A1c % 7.2 <6.0 % Hemoglobin A1C Reference Range Adults: 4.8 - 6.0 % Non diabetic: < 6.0 % Goal: < 7.0 % Additional Action Suggested: > 8.0 % Note: Hemoglobin A1c results are invalid for patients with abnormal amounts of HbF. Blood transfusions may impact the HbA1c concentration in the patient sample. Estimated Average Glucose 160 eAG = Estimated average glucose which is %A1C expressed as average glucose, using the formula of the N2S-Brbvxzb Average Glucose study (ADAG), Diabetes Care, Vol.31,#8, Jun. 2007 Complete Blood Count Auto Di ff Reviewed date:04/21/2024 10:55:47 AM Interpretation: Performing Lab:[facility], [address] [place] [phone] Notes/Report: White Blood Count 6.3 4.8-10.8 X10*3/uL Red Blood Count 4.69 4.60-5.80 X10*6/uL Hemoglobin 14.3 14.0-18.0 g/dl Hematocrit 43.4 42.0-52.0 % Mean Corpuscular Volume 92.5 80.0-98.0 fL Mean Corpuscular Hemoglobin 30.5 27.0-33.0 pg Mean Corpuscular HGB Conc 32.9 31.0-36.0 g/dl Red Cell Distribution Width 13.5 11.0-16.0 % Platelet Count 114 160-400 X10*3/uL Mean Platelet Volume 12.3 9.4-12.4 fL Neutrophils Percent Auto 53.4 45-73 % Imm Gran Pct Auto 0.3 0.0-0.4 % Lymphocytes Percent Auto 26.5 20-40 % Monocytes Percent Auto 8.7 2-11 % Eosinophils Percent Auto 10.0 0-4 % Basophils Percent Auto 1.1 0-2 % NRBC Pct Auto 0.0 0.0-0.2 /100WBC Neutrophils Absolute Auto 3.4 2.0-8.3 x10*3/u L Imm Gran Abs Auto 0.02 0.00-0.03 X10*3/uL Lymphocytes Absolute Auto 1.7 1.2-4.9 X10*3/u L Monocytes Absolute Auto 0.6 0.1-1.2 X10*3/uL Eosinophils Absolute Auto 0.6 0.0-0.4 X10*3/u L Basophils Absolute Auto 0.1 0.0-0.2 X10*3/uL NRBC Abs Auto 0.000 0.0-0.012 X10*3/uL [facility]. Panel Fa Reviewed date:04/21/2024 10:55:47 AM Interpretation: Performing Lab:[facility], [address] [place] [phone] Notes/Report: Sodium 138 135-145 mmol/L Potassium 4.7 3.3-5.1 mmol/L Slight Hemoly sis Chloride 106 96-108 mmol/L Carbon Dioxide 23 22-29 mmol/L Anion Gap 14 12-20 Blood Urea Nitrogen 18 9-16 mg/dL Creatinine 1.23 0.5-1.4 mg/dL Estimated Glomerular Filt Rate 56 NOTE: For -Angolan individuals, multiply the result by 1.210. Chronic Kidney Disease: Estimated GFR < 60 mL/min/1.73m2 Severe Kidney Disease: Estimated GFR < 15 mL/min/1.73m2 Glucose Fasting 158 60-99 mg/dL A fasting glucose of 126 mg/dl or greater on more than one occasion is considered diagnostic of diabetes. Calcium 9.2 8.4-10.2 mg/dL Bilirubin Total 0.6 0.0-1.0 mg/dL Aspartate Amino Transferase 20 5-37 U/L Slight Hemolysis Alanine Aminotransferase 17 0-40 U/L Total Protein 6.9 6.5-8.0 g/dL Albumin Level 4.0 3.5-5.0 g/dL Alkaline Phosphatase 47 39-117 U/L Lipid Panel Reviewed date:04/21/2024 10:55:47 AM Interpretation: Performing Lab:[facility], [address] [place] [phone] Notes/Report: Triglycerides 92 <150 mg/dL Desirable Triglyceride: less than 150 mg/dL Borderline High Triglyceride 150-199 mg/dL High Triglyceride: 200-499 mg/dL Very High Triglyceride: greater than or equal to 5OO mg/dL Cholesterol 157 <200 mg/dL Desirable Cholesterol: less than 200 mg/dL Borderline High Cholesterol: 200-239 mg/dL High Cholesterol: greater than 239 mg/dL LDL Cholesterol Calculated 85 <100 mg/dL Desirable LDL: less than 100 mg/dL Near Optimal/Above Optimal LDL: 110-129 mg/dL Borderline High LDL: 130-159 mg/dL High LDL: 160-189 mg/dL Very High LDL: greater than or equal to 190 mg/dL HDL Cholesterol 54 >40 mg/dL Desirable HDL: greater than 40 mg/dL Note: This HDL assay may give artificially low results in patients with liver disease. Prostate Specific Antigen Reviewed date:04/21/2024 10:55:47 AM Interpretation: Performing Lab:[facility], [address] [place] [phone] Notes/Report: Prostate Specific Antigen 1.32 <0.05-4.0 ng/mL PSA methodology: Ernandez Alinity i Chemiluminescent Microparticle Immunoassay (CMIA) Microalbumin, Random Reviewed date:04/21/2024 10:55:47 AM Interpretation: Performing Lab:[facility], [address] [place] [phone] Notes/Report: Creatinine Urine 109.79 Microalbumin Urine < 5.0 Microalbum/Creatinine Ratio Ur TNP <30 ug/mg cr Unable to calculate albumin/creatinine ratio due to low microalbumin or creatinine result. Hemoglobin A1c Reviewed date:04/21/2024 10:55:47 AM Interpretation: Performing Lab:[address] [phone] Notes/Report: Hemoglobin A1c % 7.5 <6.0 % Hemoglobin A1C Reference Range Adults: 4.8 - 6.0 % Non diabetic: < 6.0 % Goal: < 7.0 % Additional Action Suggested: > 8.0 % Note: Hemoglobin A1c results are invalid for patients with abnormal amounts of HbF. Blood transfusions may impact the HbA1c concentration in the patient sample. Estimated Average Glucose 169 eAG = Estimated average glucose which is %A1C expressed as average glucose, using the formula of the S8G-Atgzeic Average Glucose study (ADAG), Diabetes Care, Vol.31,#8, Jun. 2007 Diabetic Eye Exam Reviewed date:06/16/2024 09:25:16 AM Interpretation:undefined Performing Lab: Notes/Report: undefined Complete Blood Count Auto Di ff Reviewed date:08/24/2024 06:34:30 AM Interpretation: Performing Lab:[facility], [address] [place] [phone] Notes/Report: White Blood Count 7.0 4.8-10.8 X10*3/uL Red Blood Count 4.67 4.60-5.80 X10*6/uL Hemoglobin 14.3 14.0-18.0 g/dl Hematocrit 42.7 42.0-52.0 % Mean Corpuscular Volume 91.4 80.0-98.0 fL Mean Corpuscular Hemoglobin 30.6 27.0-33.0 pg Mean Corpuscular HGB Conc 33.5 31.0-36.0 g/dl Red Cell Distribution Width 12.9 11.0-16.0 % Platelet Count 127 160-400 X10*3/uL Mean Platelet Volume 12.8 9.4-12.4 fL Neutrophils Percent Auto 65.5 45-73 % Imm Gran Pct Auto 0.3 0.0-0.4 % Lymphocytes Percent Auto 20.2 20-40 % Monocytes Percent Auto 8.3 2-11 % Eosinophils Percent Auto 4.8 0-4 % Basophils Percent Auto 0.9 0-2 % NRBC Pct Auto 0.0 0.0-0.2 /100WBC Neutrophils Absolute Auto 4.6 2.0-8.3 x10*3/u L Imm Gran Abs Auto 0.02 0.00-0.03 X10*3/uL Lymphocytes Absolute Auto 1.4 1.2-4.9 X10*3/u L Monocytes Absolute Auto 0.6 0.1-1.2 X10*3/uL Eosinophils Absolute Auto 0.3 0.0-0.4 X10*3/u L Basophils Absolute Auto 0.1 0.0-0.2 X10*3/uL NRBC Abs Auto 0.000 0.0-0.012 X10*3/uL Comprehensive [place]. Panel Fa st Reviewed date:08/24/2024 06:34:30 AM Interpretation: Performing Lab:[facility], [address] [place] [phone] Notes/Report: Sodium 142 135-145 mmol/L Potassium 4.1 3.3-5.1 mmol/L Chloride 108 96-108 mmol/L Carbon Dioxide 26 22-29 mmol/L Anion Gap 12 12-20 Blood Urea Nitrogen 19 9-16 mg/dL Creatinine 1.23 0.5-1.4 mg/dL Estimated Glomerular Filt Rate 56 NOTE: For -Angolan individuals, multiply the result by 1.210. Chronic Kidney Disease: Estimated GFR < 60 mL/min/1.73m2 Severe Kidney Disease: Estimated GFR < 15 mL/min/1.73m2 Glucose Fasting 143 60-99 mg/dL A fasting glucose of 126 mg/dl or greater on more than one occasion is considered diagnostic of diabetes. Calcium 9.3 8.4-10.2 mg/dL Bilirubin Total 0.5 0.0-1.0 mg/dL Aspartate Amino Transferase 18 5-37 U/L Alanine Aminotransferase 16 0-40 U/L Total Protein 7.0 6.5-8.0 g/dL Albumin Level 4.3 3.5-5.0 g/dL Alkaline Phosphatase 52 39-117 U/L Lipid Panel Reviewed date:08/24/2024 06:34:30 AM Interpretation: Performing Lab:[address] [phone] Notes/Report: Triglycerides 89 <150 mg/dL Desirable Triglyceride: less than 150 mg/dL Borderline High Triglyceride 150-199 mg/dL High Triglyceride: 200-499 mg/dL Very High Triglyceride: greater than or equal to 5OO mg/dL Cholesterol 140 <200 mg/dL Desirable Cholesterol: less than 200 mg/dL Borderline High Cholesterol: 200-239 mg/dL High Cholesterol: greater than 239 mg/dL LDL Cholesterol Calculated 70 <100 mg/dL Desirable LDL: less than 100 mg/dL Near Optimal/Above Optimal LDL: 110-129 mg/dL Borderline High LDL: 130-159 mg/dL High LDL: 160-189 mg/dL Very High LDL: greater than or equal to 190 mg/dL HDL Cholesterol 53 >40 mg/dL Desirable HDL: greater than 40 mg/dL Note: This HDL assay may give artificially low results in patients with liver disease. Microalbumin, Random Reviewed date:08/24/2024 06:34:30 AM Interpretation: Performing Lab:[address] [phone] Notes/Report: Creatinine Urine 110.76 Microalbumin Urine 7.0 Microalbum/Creatinine Ratio Ur 6.3 <30 ug/mg cr Albumin/Creatinine Ratio Reference Ranges: Normal: < 30 ug/mg creatinine Microalbuminuria: 30 - 300 ug/mg creatinine Clinical Albuminuria: > 300 ug/mg creatinine Hemoglobin A1c Reviewed date:08/24/2024 06:34:30 AM Interpretation: Performing Lab:[facility], [address] [place] [phone] Notes/Report: Hemoglobin A1c % 7.3 <6.0 % Hemoglobin A1C Reference Range Adults: 4.8 - 6.0 % Non diabetic: < 6.0 % Goal: < 7.0 % Additional Action Suggested: > 8.0 % Note: Hemoglobin A1c results are invalid for patients with abnormal amounts of HbF. Blood transfusions may impact the HbA1c concentration in the patient sample. Estimated Average Glucose 163 eAG = Estimated average glucose which is %A1C expressed as average glucose, using the formula of the O3S-Dzabebm Average Glucose study (ADAG), Diabetes Care, Vol.31,#8, Jun. 2007 Reason For Referral No Information Medications Medication SIG (Take, Route, Frequency, Duration) Notes Start Date End Date Status Triamcinolone Acetonide 0.1 % 1 application Externally Twice a day for 30 days 03/31/2022 Active Eliquis 5 MG TAKE 1 TABLET BY CHRISTIE TH TWICE DAILY Oral Active Lisinopril 40 MG Take 1 tablet by christie th once daily for 90 Active amLODIPine Besylate 10 MG Take 1 tablet by mouth once daily Active Pravastatin Sodium 40 MG 1 tablet Orally Once a day Active metFORMIN HCl ER 500 MG TAKE 1 TABLET BY MOUTH ONCE DAILY WITH EVENING MEAL Active Immunizations Vaccine Route Administration Date Status Comme nts COVID PFIZER Unknown 09/04/2021 Administered Zostavax Unknown 02/06/2016 Administered PPV 23 Unknown 08/24/2019 Administered PCV13 Unknown 02/06/2016 Administered Influenza High Dose Quadrivalent Unknown 08/24/2023 Adm inistered Influenza High Dose Quadrivalent Unknown 08/27/2020 Adm inistered Influenza no Preserv 3 and > Unknown 11/29/2010 Adminis tered PPV 23 Unknown 10/01/2018 Administered Social History Tobacco Use: Social History Observation Description Date Details (start date - stop date) Never Smoker NA - NA Sex Assigned At : Social History Observation Description Sex Assigned At Male Tobacco Use/Smoking Question Answer Notes Patient is a nonsmoker Additional Findings: Tobacco Non-User Aggressive non-smoker Alcohol Screen Question Answer Notes Did you have a drink containing alcohol in the p ast year? No Points 0 Interpretation Negative Problems Problem Type SNOMED Code ICD Code Onset Dates Problem Status W/U Status Risk Notes Problem [id number] Obesity (BMI 30.0-34.9) (E66.9) Active confirmed His weight is stable with a body mass index of 31. He has lost 3 pounds. We reviewed his diet and his nutrition. I made clear the relationship between control of diabetes and weight. He made a plan to lose weight at a rate of one half of a pound per week to regular physical activity and a diet restricted in fat calories and sodium. Problem [id number] Thrombocytopenia (D69.6) Active confirmed His platelets have improved to 1 27,000. He has had no bleeding and he is avoiding aspirin. The value will be observed without treatment. No change in his regimen was needed. Problem [id number] Mixed hyperlipidemia (E78.2) Active confirmed His lipids are currently stable and no change in his regimen was needed. Problem 48141330 Essential hypertension (I10) Active confirmed His blood pressure is controlled at 130/80 and no change in his regimen was needed today. I have recommended aggressive weight loss and sodium restriction. Problem 24147208 Atrial fibrillation, unspecified type (I48.91) Active confirmed He was in atrial fibrillation today with a slow controlled rate. No murmurs were heard. Problem [id number] Benign prostatic hyperplasia, unspecified whether lower urinary tract symptoms present (N40.0) Active confirmed He experiences nocturia once or twice a night depending upon fluid intake. We have discussed modifications in his life so they could reduce this. 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 He is compliant with his medication. He is trying to consume a healthy diabetic diet and lose weight. No change in his regimen was necessary today. Problem [id number] Arthritis of right knee (M17.11) Active confirmed He is completing all of the activities of daily life with his bilateral knee replacements. Vital Signs Heart Rate 54 /min 08/29/2024 Temperature 98.2 degrees Fahrenheit 08/29/2024 Blood pressure diastolic 80 mm Hg 08/29/2024 Height 69 in 08/29/2024 Blood pressure systolic 130 mm Hg 08/29/2024 Weight 214 lbs 08/29/2024 BMI 31.6 kg/m2 08/29/2024 Encounters Encounter Location Date Provider Diagnosis Carlos Alberto Sharpe III, MD [address] [place] [address] DR [place], [place] [phone] 11/26/2023 Carlos Alberto Sharpe 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, unspecified CKD stage, unspecified whether nursing home insulin use E11.22 ; Essential hypertension I10 ; Mixed hyperlipidemia E78.2 ; Benign prostatic hyperplasia, unspecified whether lower urinary tract symptoms present N40.0 ; Arthritis of right knee M17.11 ; Atrial fibrillation, unspecified type I48.91 ; Obesity (BMI 30.0-34.9) E66.9 and Thrombocytopenia D69.6 Carlos Alberto Sharpe III, MD [address] [place] [address] [place] [phone] 04/27/2024 Carlos Alberto Sharpe 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, unspecified CKD stage, unspecified whether extermination supervisor insulin use E11.22 ; Essential hypertension I10 ; Benign prostatic hyperplasia, unspecified whether lower urinary tract symptoms present N40.0 ; Mixed hyperlipidemia E78.2 ; Obesity (BMI 30.0-34.9) E66.9 and Thrombocytopenia D69.6 Carlos Alberto Sharpe III, MD [address] [place] [address] [place] [phone] 08/29/2024 Carlos Alberto Sharpe 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, unspecified CKD stage, unspecified whether extermination supervisor insulin use E11.22 ; Mixed hyperlipidemia E78.2 ; Benign prostatic hyperplasia, unspecified whether lower urinary tract symptoms present N40.0 ; Essential hypertension I10 ; Arthritis of right knee M17.11 ; Atrial fibrillation, unspecified type I48.91 and Thrombocytopenia D69.6 Carlos Alberto Sharpe III, MD [address] [place] [address] [place] [phone] 03/30/2024 Carlos Alberto Sharpe 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, unspecified CKD stage, unspecified whether nursing home insulin use E11.22 Carlos Alberto Sharpe III, MD [address] [place] [address] [place] [phone] 10/21/2024 Carlos Alberto Sharpe 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, unspecified CKD stage, unspecified whether extermination supervisor insulin use E11.22 Assessments Encounter Date Diagnosis (ICD Code) Assessment Notes Treat ment Notes Treatment Clinical Notes 11/26/2023 Essential hypertensi on (ICD-10 - I10) His blood pressure is controlled and no change in his regimen was needed today. I have recommended aggressive weight loss and sodium restriction. 11/26/2023 Type 2 diabetes mellitus with diabetic chronic kidney disease, unspecified CKD stage, unspecified whether nursing home insulin use (ICD-10 - E11.22) His hemoglobin A1c is 7.2 He is compliant with his medication. He is trying to consume a healthy diabetic diet and lose weight. No change in his regimen was necessary today. 04/27/2024 Essential hypertensi on (ICD-10 - I10) His blood pressure is controlled at 138/85and no change in his regimen was needed today. I have recommended aggressive weight loss and sodium restriction. 04/27/2024 Type 2 diabetes mellitus with diabetic chronic kidney disease, unspecified CKD stage, unspecified whether nursing home insulin use (ICD-10 - E11.22) His hemoglobin A1c is 7.5. He is compliant with his medication. He is trying to consume a healthy diabetic diet and lose weight. No change in his regimen was necessary today. 08/29/2024 Mixed hyperlipidemia (ICD-10 - E78.2) His lipids are currently stable and no change in his regimen was needed. 08/29/2024 Type 2 diabetes mellitus with diabetic chronic kidney disease, unspecified CKD stage, unspecified whether nursing home insulin use (ICD-10 - E11.22) His hemoglobin A1c is 7.3. He is compliant with his medication. He is trying to consume a healthy diabetic diet and lose weight. No change in his regimen was necessary today. 03/30/2024 Type 2 diabetes mellitus with diabetic chronic kidney disease, unspecified CKD stage, unspecified whether extermination supervisor insulin use (ICD-10 - E11.22) His hemoglobin A1c is 7.2 He is compliant with his medication. He is trying to consume a healthy diabetic diet and lose weight. No change in his regimen was necessary today. 10/21/2024 Type 2 diabetes mellitus with diabetic chronic kidney disease, unspecified CKD stage, unspecified whether extermination supervisor insulin use (ICD-10 - E11.22) His hemoglobin A1c is 7.3. He is compliant with his medication. He is trying to consume a healthy diabetic diet and lose weight. No change in his regimen was necessary today. 11/26/2023 Mixed hyperlipidemia (ICD-10 - E78.2) The current fasting lipid profile shows his values to be in their target range. No change in his regimen is needed. I recommended aggressive weight loss. 04/27/2024 Benign prostatic hyperplasia, unspecified whether lower urinary tract symptoms present (ICD-10 - N40.0) He rises from sleep 22 or 3 times a night to urinate. He is happy with this level of function. We discussed lifestyle modification as a way to reduce nocturia. 08/29/2024 Benign prostatic hyperplasia, unspecified whether lower urinary tract symptoms present (ICD-10 - N40.0) He experiences nocturia once or twice a night depending upon fluid intake. We have discussed modifications in his life so they could reduce this. 11/26/2023 Benign prostatic hyperplasia, unspecified whether lower urinary tract symptoms present (ICD-10 - N40.0) He rises from sleep 22 or 3 times a night to urinate. He is happy with this level of function. We discussed lifestyle modification as a way to reduce nocturia. 04/27/2024 Mixed hyperlipidemia (ICD-10 - E78.2) The current fasting lipid profile shows his values to be in their target range. No change in his regimen is needed. I recommended aggressive weight loss. 08/29/2024 Essential hypertensi on (ICD-10 - I10) His blood pressure is controlled at 130/80 and no change in his regimen was needed today. I have recommended aggressive weight loss and sodium restriction. 11/26/2023 Arthritis of right knee (ICD-10 - M17.11) He is completing all of the activities of daily life with his bilateral knee replacements. 04/27/2024 Obesity (BMI 30.0-34.9) (ICD-10 - E66.9) His weight is stable with a body mass index of 31. He has lost 3 pounds. We reviewed his diet and his nutrition. I made clear the relationship between control of diabetes and weight. He made a plan to lose weight at a rate of one half of a pound per week to regular physical activity and a diet restricted in fat calories and sodium. 08/29/2024 Arthritis of right knee (ICD-10 - M17.11) He is completing all of the activities of daily life with his bilateral knee replacements. 11/26/2023 Atrial fibrillation, unspecified type (ICD-10 - I48.91) He was in atrial fibrillation today with a slow controlled rate. No murmurs were heard. 04/27/2024 Thrombocytopenia (ICD-10 - D69.6) His platelet count has fallen to114,000. He has had no bleeding and he is avoiding aspirin. The value will be observed without treatment. No change in his regimen was needed. 08/29/2024 Atrial fibrillation, unspecified type (ICD-10 - I48.91) He was in atrial fibrillation today with a slow controlled rate. No murmurs were heard. 11/26/2023 Obesity (BMI 30.0-34.9) (ICD-10 - E66.9) His weight is stable with a body mass index of 31. He has lost 3 pounds. We reviewed his diet and his nutrition. I made clear the relationship between control of diabetes and weight. He made a plan to lose weight at a rate of one half of a pound per week to regular physical activity and a diet restricted in fat calories and sodium. 08/29/2024 Thrombocytopenia (ICD-10 - D69.6) His platelets have improved to 1 27,000. He has had no bleeding and he is avoiding aspirin. The value will be observed without treatment. No change in his regimen was needed. 11/26/2023 Thrombocytopenia (ICD-10 - D69.6) His platelet count is stable at 133,000. He has had no bleeding and he is avoiding aspirin. The value will be observed without treatment. No change in his regimen was needed. Plan Of Treatment Pending Test Test Name Order Date PROFILE, FASTING (COMPREHENSIVE METABOLI C) 03/25/2021 PROFILE, FASTING (COMPREHENSIVE METABOLI C) 04/02/2020 PROFILE, FASTING (COMPREHENSIVE METABOLI C) 03/31/2022 PROFILE, FASTING (COMPREHENSIVE METABOLI C) 06/27/2021 PROFILE, FASTING (COMPREHENSIVE METABOLI C) 11/26/2023 PROFILE, FASTING (COMPREHENSIVE METABOLI C) 08/26/2023 PROFILE, FASTING (COMPREHENSIVE METABOLI C) 08/29/2024 PROFILE, RANDOM (COMPREHENSIVE METABOLIC ) 11/26/2020 PROFILE, RANDOM (COMPREHENSIVE METABOLIC ) 06/25/2020 HEMOGLOBIN A1C (GLYCOHEMOGLOBIN) 023 HEMOGLOBIN A1C (GLYCOHEMOGLOBIN) 020 HEMOGLOBIN A1C (GLYCOHEMOGLOBIN) 020 HEMOGLOBIN A1C (GLYCOHEMOGLOBIN) 021 HEMOGLOBIN A1C (GLYCOHEMOGLOBIN) 022 HEMOGLOBIN A1C (GLYCOHEMOGLOBIN) 021 LIPID PANEL 06/27/2021 LIPID PANEL 08/26/2023 LIPID PANEL 11/26/2020 LIPID PANEL 03/25/2021 LIPID PANEL 04/02/2020 LIPID PANEL 03/31/2022 PSA, TOTAL 08/29/2024 PSA, TOTAL 11/26/2020 PSA, TOTAL 11/26/2023 MICROALBUMIN, RANDOM 03/31/2022 MICROALBUMIN, RANDOM 06/25/2020 MICROALBUMIN, RANDOM 11/26/2020 CBC w DIFF 11/26/2023 CBC w DIFF 03/31/2022 CBC w DIFF 06/27/2021 CBC w DIFF 08/26/2023 CBC w DIFF 06/25/2020 CBC w DIFF 03/25/2021 CBC w DIFF 04/02/2020 CBC w DIFF 11/26/2020 LIPID TOTAL, FECES 06/25/2020 CBC WITH AUTO DIFF 08/29/2024 Lipid Panel 11/26/2023 Lipid Panel 08/29/2024 Microalbumin, Random 11/26/2023 Microalbumin, Random 08/26/2023 ECG holter monitor 48 hour 04/22/2023 ECG 12 lead EKG 04/22/2023 Hemoglobin A1c 08/29/2024 Hemoglobin A1c 11/26/2023 Next Appt Details Provider Name:Carlos Alberto Sharpe, 12/21/2024 11:15:00 AM, [address] [place] [address] KALANI MENARD, [place], [address], Provider Name:Carlos Alberto Sharpe, 04/28/2025 10:30:00 AM, [address] [place] [address] KALANI MENARD, [place], [phone], Insurance Providers Payer Name Payer Address Payer Phone Subscriber Number Group Number Insured Name Patient Relationship to Insured Coverage Start Date Coverage End Date [facility] [address] [facility] [address] [place] [phone] [id number] MINA GOMEZ Self - patient is the insured MEDICARE NGS [address] [facility] [place] [phone] [id number] CREVIER, MINA Self - patient is the insured Medical (General) History Medical History History ICD Code essential hypertension adult-onset diabetes mellitus hyperlipidemia osteoarthritis right knee BPH history of cataracts Surgical History Surgery Date(Month/Year) Age 50 Rectal Surgery in [place] Dr. Hue haider Age 30 Failed Vasectomy Age 18 Full upper dentures age 14 upper tooth denture bilateral knee replacentnts 2014 right eye cataract surgery 2018
--- OUTSIDE RECORDS SUMMARY | 2024-11-08 14:31 | XMS_ITS ---
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 Role Phone Carlos Alberto Sharpe Primary Care Provider [phone] Allergies Allergen (clinical drug ingredient) Drug/Non Drug [...] 1.3 BLD Negative Negative - Menstrating N/A REASON FOR VISIT Annual Exam Medications Medication SIG (Take, Route, Frequency, Duration) Notes Start Date End Date Status Lisinopril 40 MG 1 tablet Orally Once a day 08/26/2023 Active amLODIPine Besylate 10 MG Take 1 tablet by mouth once daily Active Triamcinolone Acetonide 0.1 % 1 application Externally Twice a day 03/31/2022 Active Pravastatin Sodium 40 MG 1 tablet Orally Once a day Active metFORMIN HCl ER 500 MG TAKE 1 TABLET BY MOUTH ONCE DAILY WITH EVENING MEAL Active Lisinopril 40 MG Take 1 tablet by lenore th once daily Active Social History Tobacco Use: Social History Observation [...] ast year? 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, unspecified CKD stage, unspecified whether supervisor long goods insulin use E11.22 ; Essential hypertension I10 ; Benign prostatic hyperplasia, unspecified whether lower urinary tract symptoms present N40.0 ; Mixed hyperlipidemia E78.2 ; Obesity (BMI 30.0-34.9) E66.9 and Thrombocytopenia D69.6 Assessments Encounter Date Diagnosis (ICD Code) Assessment Notes Treat ment Notes Treatment Clinical Notes 04/27/2024 Type 2 diabetes mellitus with diabetic chronic kidney disease, unspecified CKD stage, unspecified whether assisted insulin use (ICD-10 - E11.22) His hemoglobin [...] aggressive weight loss and sodium restriction. 04/27/2024 Benign prostatic hyperplasia, unspecified whether lower [...] needed. I recommended aggressive weight loss. 04/27/2024 Obesity (BMI 30.0-34.9) (ICD-10 - E66.9) [...] diet restricted in fat calories and sodium. 04/27/2024 Thrombocytopenia (ICD-10 - D69.6) His platelet count has fallen to114,000. He has had no bleeding and he is avoiding aspirin. The value will be observed without treatment. No change in his regimen was needed. Plan Of Treatment Medication Medication Name Sig Start Date Stop Date Notes Lisinopril 40 MG 1 tablet Orally Once a day 08/26/2023 amLODIPine Besylate 10 MG Take 1 tablet by mouth once daily Triamcinolone Acetonide 0.1 % 1 applicat ion Externally Twice a day 03/31/2022 Pravastatin Sodium 40 MG 1 tablet Orally Once a day metFORMIN HCl ER 500 MG TAKE 1 TABLET BY MOUTH ONCE DAILY WITH EVENING MEAL Lisinopril 40 MG Take 1 tablet by lenore th once daily Next Appt Details Follow Up: 4 Months, Reason: OV Provider Name:Carlos Alberto Sharpe, 12/21/2024 11:15:00 AM, [address] [place] [address] KAL[address] MEN[place], [place], [id number], Provider Name:Carlos Alberto Sharpe, 04/28/2025 10:30:00 AM, [address] [place] [address] KALANI MENARD, [place], [id number], Progress Notes * MINA GOMEZDOB: [birth year] (83 yo M)Acc No.[id number]:04/27/2024 Progress Notes Patient:?JASON MINA Provider:?Carlos Alberto Sharpe MD :1940???Age:83 Y???Sex:Male Emmett e:04/27/2024 Address:[address] [place] [address] [id number] Subjective: * Chief Complaints: * ???Annual Exam * HPI: ???Depression Screening:? He returns to the office at the age of 83 for his annual physical examination. Since his last visit he has no new complaints. He continues to feel weakness in his legs and an achy tired pain in his lower back. He and his have sold their home in [place] and one hour [employer] exclusively in [place]. He has been back from [place] now for 1 month. He has had no chest pain shortness of breath nausea vomiting diarrhea fevers. He has had no falls. ?PHQ-9?Little interest or pleasure in doing things?Not at all ?Feeling down, depressed, or hopeless?Not at all ?Trouble falling or staying asleep, or sleeping too much?Not at all ?Feeling tired or having little energy?Not at all ?Poor appetite or overeating?Not at all ?Feeling bad about yourself or that you are a failure, or have let yourself or your family down?Not at all ?Trouble concentrating on things, such as reading the newspaper or watching television?Not at all ?Moving or speaking so slowly that other people could have noticed; or the opposite, being so fidgety or restless that you have been moving around a lot more than usual?Not at all ?Thoughts that you would be better off or of hurting yourself in some way?Not at all ?Total Score?0 ???COVID-19 Screening:?Questions?Have you experienced fever, chills, cough, sore throat, shortness of breath, difficulty breathing, muscle aches, loss of taste or smell??No ?Have you been exposed to the virus within the last 10 days??No ?Have you travelled internationally in the last 10 days??No ?Have you been exposed to COVID-19 in the past??No ???Fall Risk Screening:?Fall History?Have you had any falls with injury in the past year??No ?Have you had two or more falls in the past year??No ?Fall Risk Assessment:?No falls in the past year ???SDOH Questions:?SDOH Questions?In the past year have you been worried about losing your housing??No ?In the past year have you or any family members you live with been unable to get any of the following when it was really needed? Check all that apply:?None * ROS:?General/Constitutional:?pain?only normal aches and pains.?Chills?denies.?Fatigue?admits.?Fever?denies.?ENT:?Decreased hearing?mild.?Respiratory:?Cough?denies.?Cardiovascular:?Chest pain with exertion?denies.?Dyspnea on exertion?denies.?Shortness of breath?denies.?Gastrointestinal:?Constipation?occasional.?Decreased appetite?denies.?Diarrhea?denies.?Heartburn?denies.?Nausea?denies.?Rectal bleeding?denies.?Vomiting?denies.?Hematology:?bruising?denies.?petechiae?denies.?Swollen glands?none have been noted.?Genitourinary:?Frequent urination?twice a night.?Musculoskeletal:?Muscle aches?denies.?Painful joints?denies.?Sciatica?denies.?Weakness?denies.?Skin:?Itching?denies.?Rash?denies.?Skin lesion(s)?denies.?Neurologic:?Difficulty speaking?denies.?Dizziness?denies.?Headache?denies.?Low back pain?denies.?Psychiatric:?Depressed mood?denies.? * Medical History:? * Surgical History:?right eye cataract surgery 2019bilateral knee replacentnts 2015age 14 upper tooth denture Age 18 Full upper dentures Age 30 Failed Vasectomy Age 50 Rectal Surgery in [place] Dr. Johnson * Hospitalization/Major Diagno stic Procedure:?Denies Past Hospitalization * Family History:?Father: dece ased 82 yrs, diabetes,chf, etoh, smoker, diagnosed with DM, CVD, HTN.?Mother: 66 yrs, quadrplegic since fall, [place], [place], from [place], diagnosed with HTN.?1 brother(s) - healthy. 1 son(s) , 2 daughter(s) - healthy. .? His father smokes cigarettes and drank heavily and was diabetic. His left leg was amputated below the knee. He suffered from severe hearing loss and at the age of 82. He had congestive heart failure. His mother was a cigarette smoker and at the age of 71 with multiple sclerosis and pneumonia. His brother is diabetic and has had several abdominal surgical procedures. He is not aware of any cancer family syndrome. He is not aware of any family history of substance abuse other than his father or addiction or mental illness. * Social History:?Tobacco Use:?Tobacco Use/Smoking?Patient is a?nonsmoker ?Additional Findings: Tobacco Non-User?Aggressive non-smoker ???Drugs/Alcohol:?Drugs?Have you used drugs other than those for medical reasons in the past 12 months??No ?Alcohol Screen?Did you have a drink containing alcohol in the past year??No ?Points?0 ?Interpretation?Negative ???He does not drink or smoke. He is retired. He is to [place] for the last 61 years. His became quadriplegic after a fall and of pneumonia. She also had multiple sclerosis. 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 His 2 children and 4 grandsons are healthy. * Medications:?TakingamLODIPin e Besylate 10 MG Tablet Take 1 tablet by mouth once daily Triamcinolone Acetonide 0.1 % Cream 1 application Externally Twice a dayLisinopril 40 MG Tablet 1 tablet Orally Once a daymetFORMIN HCl ER 500 MG Tablet Extended Release 24 Hour TAKE 1 TABLET BY MOUTH ONCE DAILY WITH EVENING MEAL Pravastatin Sodium 40 MG Tablet 1 tablet Orally Once a dayTaking amLODIPine Besylate 10 MG Tablet Take 1 tablet by mouth once daily Taking Triamcinolone Acetonide 0.1 % Cream 1 application Externally Twice a dayTaking Lisinopril 40 MG Tablet 1 tablet Orally Once a dayTaking metFORMIN HCl ER 500 MG Tablet Extended Release 24 Hour TAKE 1 TABLET BY MOUTH ONCE DAILY WITH EVENING MEAL Taking Pravastatin Sodium 40 MG Tablet 1 tablet Orally Once a dayDiscontinuedLisinopril 40 MG Tablet Take 1 tablet by mouth once daily Medication List reviewed and reconciled with the patientDiscontinued Lisinopril 40 MG Tablet Take 1 tablet by mouth once daily Medication List reviewed and reconciled with the patient * Allergies:?Amoxicillinno[All ergies Verified] Objective: * Vitals:?Ht: 69, Wt:213, BMI: 31.45, BP:138/85, HR:54, Temp:98.6, Wt-k.62. * ???Past Orders: Lab:Prostate Specific Antige n * Order Date 04/20/2024 03/23/2021 11/26/2020 Prostate Specific Antigen 1.32 (Ref Range: <0.05-4.0 ng/mL) 1.06 (Ref Range: <0.05-4.0 ng/mL) 1.00 (Ref Range: <0.05-4.0 ng/mL) * Lab:Lipid Panel * Order Date 04/20/2024 11/18/2023 08/20/2023 Triglycerides 92 (Ref Range: <150 mg/dL) 71 (Ref Range: <150 mg/dL) 76 (Ref Range: <150 mg/dL) Cholesterol 157 (Ref Range: <200 mg/dL) 147 (Ref Range: <200 mg/dL) 144 (Ref Range: <200 mg/dL) LDL Cholesterol Calculated 85 (Ref Range: <100 mg/dL) 75 (Ref Range: <100 mg/dL) 71 (Ref Range: <100 mg/dL) HDL Cholesterol 54 (Ref Range: >40 mg/dL) 58 (Ref Range: >40 mg/dL) 58 (Ref Range: >40 mg/dL) * Lab:Bryce mera Fast * Order Date 04/20/2024 11/18/2023 08/20/2023 Sodium 138 (Ref Range: 135-145 mmol/L) 140 (Ref Range: 135-145 mmol/L) 140 (Ref Range: 135-145 mmol/L) Bilirubin Total 0.6 (Ref Range: 0.0-1.0 mg/dL) 0.6 (Ref Range: 0.0-1.0 mg/dL) 0.5 (Ref Range: 0.0-1.0 mg/dL) Aspartate Amino Transferase 20 (Ref Range: 5-37 U/L) 18 (Ref Range: 5-37 U/L) 19 (Ref Range: 5-37 U/L) Alanine Aminotransferase 17 (Ref Range: 0-40 U/L) 13 (Ref Range: 0-40 U/L) 14 (Ref Range: 0-40 U/L) Total Protein 6.9 (Ref Range: 6.5-8.0 g/dL) 7.1 (Ref Range: 6.5-8.0 g/dL) 7.3 (Ref Range: 6.5-8.0 g/dL) Albumin Level 4.0 (Ref Range: 3.5-5.0 g/dL) 4.2 (Ref Range: 3.5-5.0 g/dL) 4.4 (Ref Range: 3.5-5.0 g/dL) Alkaline Phosphatase 47 (Ref Range: 39-117 U/L) 53 (Ref Range: 39-117 U/L) 52 (Ref Range: 39-117 U/L) Potassium 4.7 (Ref Range: 3.3-5.1 mmol/L) 4.6 (Ref Range: 3.3-5.1 mmol/L) 4.9 (Ref Range: 3.3-5.1 mmol/L) Chloride 106 (Ref Range: 96-108 mmol/L) 105 (Ref Range: 96-108 mmol/L) 105 (Ref Range: 96-108 mmol/L) Carbon Dioxide 23 (Ref Range: 22-29 mmol/L) 25 (Ref Range: 22-29 mmol/L) 26 (Ref Range: 22-29 mmol/L) Anion Gap 14 (Ref Range: 12-20) 15 (Ref Range: 12-20) 14 (Ref Range: 12-20) Blood Urea Nitrogen 18?H (Ref Range: 9-16 mg/dL) 23?H (Ref Range: 9-16 mg/dL) 23?H (Ref Range: 9-16 mg/dL) Creatinine 1.23 (Ref Range: 0.5-1.4 mg/dL) 1.17 (Ref Range: 0.5-1.4 mg/dL) 1.42?H (Ref Range: 0.5-1.4 mg/dL) Estimated Glomerular Filt Rate 56 59 47 Glucose Fasting 158?H (Ref Range: 60-99 mg/dL) 138?H (Ref Range: 60-99 mg/dL) 143?H (Ref Range: 60-99 mg/dL) Calcium 9.2 (Ref Range: 8.4-10.2 mg/dL) 9.3 (Ref Range: 8.4-10.2 mg/dL) 9.4 (Ref Range: 8.4-10.2 mg/dL) * Lab:Complete Blood Count Aut o Diff * Order Date 04/20/2024 11/18/2023 08/20/2023 White Blood Count 6.3 (Ref Range: 4.8-10.8 X10*3/uL) 6.1 (Ref Range: 4.8-10.8 X10*3/uL) 6.3 (Ref Range: 4.8-10.8 X10*3/uL) Red Blood Count 4.69 (Ref Range: 4.60-5.80 X10*6/uL) 4.84 (Ref Range: 4.60-5.80 X10*6/uL) 4.89 (Ref Range: 4.60-5.80 X10*6/uL) Hemoglobin 14.3 (Ref Range: 14.0-18.0 g/dl) 14.7 (Ref Range: 14.0-18.0 g/dl) 15.0 (Ref Range: 14.0-18.0 g/dl) Hematocrit 43.4 (Ref Range: 42.0-52.0 %) 44.7 (Ref Range: 42.0-52.0 %) 45.1 (Ref Range: 42.0-52.0 %) Mean Corpuscular Volume 92.5 (Ref Range: 80.0-98.0 fL) 92.4 (Ref Range: 80.0-98.0 fL) 92.2 (Ref Range: 80.0-98.0 fL) Mean Corpuscular Hemoglobin 30.5 (Ref Range: 27.0-33.0 pg) 30.4 (Ref Range: 27.0-33.0 pg) 30.7 (Ref Range: 27.0-33.0 pg) Mean Corpuscular HGB Conc 32.9 (Ref Range: 31.0-36.0 g/dl) 32.9 (Ref Range: 31.0-36.0 g/dl) 33.3 (Ref Range: 31.0-36.0 g/dl) Red Cell Distribution Width 13.5 (Ref Range: 11.0-16.0 %) 13.1 (Ref Range: 11.0-16.0 %) 12.8 (Ref Range: 11.0-16.0 %) Platelet Count 114?L (Ref Range: 160-400 X10*3/uL) 133?L (Ref Range: 160-400 X10*3/uL) 145?L (Ref Range: 160-400 X10*3/uL) Mean Platelet Volume 12.3 (Ref Range: 9.4-12.4 fL) 13.1?H (Ref Range: 9.4-12.4 fL) 13.1?H (Ref Range: 9.4-12.4 fL) Neutrophils Percent Auto 53.4 (Ref Range: 45-73 %) 55.7 (Ref Range: 45-73 %) 59.5 (Ref Range: 45-73 %) Imm Gran Pct Auto 0.3 (Ref Range: 0.0-0.4 %) 0.3 (Ref Range: 0.0-0.4 %) 0.2 (Ref Range: 0.0-0.4 %) Lymphocytes Percent Auto 26.5 (Ref Range: 20-40 %) 28.7 (Ref Range: 20-40 %) 26.3 (Ref Range: 20-40 %) Monocytes Percent Auto 8.7 (Ref Range: 2-11 %) 8.7 (Ref Range: 2-11 %) 8.6 (Ref Range: 2-11 %) Eosinophils Percent Auto 10.0?H (Ref Range: 0-4 %) 5.8?H (Ref Range: 0-4 %) 4.3?H (Ref Range: 0-4 %) Basophils Percent Auto 1.1 (Ref Range: 0-2 %) 0.8 (Ref Range: 0-2 %) 1.1 (Ref Range: 0-2 %) NRBC Pct Auto 0.0 (Ref Range: 0.0-0.2 /100WBC) 0.0 (Ref Range: 0.0-0.2 /100WBC) 0.0 (Ref Range: 0.0-0.2 /100WBC) Neutrophils Absolute Auto 3.4 (Ref Range: 2.0-8.3 x10*3/uL) 3.4 (Ref Range: 2.0-8.3 x10*3/uL) 3.8 (Ref Range: 2.0-8.3 x10*3/uL) Imm Gran Abs Auto 0.02 (Ref Range: 0.00-0.03 X10*3/uL) 0.02 (Ref Range: 0.00-0.03 X10*3/uL) 0.01 (Ref Range: 0.00-0.03 X10*3/uL) Lymphocytes Absolute Auto 1.7 (Ref Range: 1.2-4.9 X10*3/uL) 1.7 (Ref Range: 1.2-4.9 X10*3/uL) 1.7 (Ref Range: 1.2-4.9 X10*3/uL) Monocytes Absolute Auto 0.6 (Ref Range: 0.1-1.2 X10*3/uL) 0.5 (Ref Range: 0.1-1.2 X10*3/uL) 0.5 (Ref Range: 0.1-1.2 X10*3/uL) Eosinophils Absolute Auto 0.6?H (Ref Range: 0.0-0.4 X10*3/uL) 0.4 (Ref Range: 0.0-0.4 X10*3/uL) 0.3 (Ref Range: 0.0-0.4 X10*3/uL) Basophils Absolute Auto 0.1 (Ref Range: 0.0-0.2 X10*3/uL) 0.1 (Ref Range: 0.0-0.2 X10*3/uL) 0.1 (Ref Range: 0.0-0.2 X10*3/uL) NRBC Abs Auto 0.000 (Ref Range: 0.0-0.012 X10*3/uL) 0.000 (Ref Range: 0.0-0.012 X10*3/uL) 0.000 (Ref Range: 0.0-0.012 X10*3/uL) * Lab:Hemoglobin A1c * Order Date 04/20/2024 11/18/2023 08/20/2023 Hemoglobin A1c % 7.5?H (Ref Range: <6.0 %) 7.2?H (Ref Range: <6.0 %) 7.0?H (Ref Range: <6.0 %) Estimated Average Glucose 169 (Ref Range: mg/dL) 160 (Ref Range: mg/dL) 154 (Ref Range: mg/dL) * Lab:Microalbumin, Random * Order Date 04/20/2024 11/18/2023 08/20/2023 Creatinine Urine 109.79 (Ref Range: mg/dL) 76.25 (Ref Range: mg/dL) 57.14 (Ref Range: mg/dL) Microalbumin Urine < 5.0 (Ref Range: mg/L) 5.0 (Ref Range: mg/L) 7.0 (Ref Range: mg/L) Microalbum Creatinine Ratio Ur TNP (Ref Range: <30 ug/mg cr) 6.5 (Ref Range: <30 ug/mg cr) 12.2 (Ref Range: <30 ug/mg cr) * Examination: ???General Examination: ?GENERAL APPEARANCE:?pleasant, well nourished, well developed, in no acute distress, calm and relaxed??obese , man.?HEAD:?atraumatic, normocephalic.?EYES:?eomi, perrla, anicteric, conjugate.?EARS:?normal.?NOSE:?septum intact.?ORAL CAVITY:?normal, unremarkable.?NECK/THYROID:?no jugular venous distention, no carotid bruit, thyroid normal.?LYMPH NODES:?no enlarged lymph nodes,spleen normal.?SKIN:?no suspicious lesions, anicteric.?HEART:?no clicks, gallops, murmurs, or rubs, regular rhythm, S1, S2 normal, no s3, or vascular bruits.?LUNGS:?clear to auscultation .?BREASTS:??no masses palpable bilaterally.?ABDOMEN:?bowel sounds normal, no ascites, no organomegaly, no mass , centripital obesity.?RECTAL EXAM:?Declined by the patient.?MUSCULOSKELETAL:?extremities unremarkable, no clubbing, cyanosis or edema, Crepitus right knee to range of motion.?PERIPHERAL PULSES:?normal.?NEUROLOGIC:?alert and oriented, cranial nerves 2-12 grossly intact, deep tendon reflexes 2+ symmetrical, motor strength normal upper and lower extremities, sensory exam intact.?PSYCH:?alert, oriented.? Assessment: * Assessment: 1.?Essential hypertension - I10, His blood pressure is controlled at 138/85and no change in his regimen was needed today. I have recommended aggressive weight loss and sodium restriction.?2.?Type 2 diabetes mellitus with diabetic chronic kidney disease, unspecified CKD stage, unspecified whether supervisor long goods insulin use - E11.22, His hemoglobin A1c is 7.5. He is compliant with his medication. He is trying to consume a healthy diabetic diet and lose weight. No change in his regimen was necessary today.?3.?Benign prostatic hyperplasia, unspecified whether lower urinary tract symptoms present - N40.0, He rises from sleep 22 or 3 times a night to urinate. He is happy with this level of function. We discussed lifestyle modification as a way to reduce nocturia.?4. Mixed hyperlipidemia - E78.2, The current fasting lipid profile shows his values to be in their target range. No change in his regimen is needed. I recommended aggressive weight loss.?5.?Obesity (BMI 30.0-34.9) - E66.9, His weight is stable with a body [...] a diet restricted in fat calories and sodium.?6.?Thrombocytopenia - D69.6, His platelet count has fallen to114,000. He has had no bleeding and he is avoiding aspirin. The value will be observed without treatment. No change in his regimen was needed.? Plan: * Treatment: 2.?Others? Continue metFORMIN HCl ER Tablet Extended Release 24 Hour, 500 MG, TAKE 1 TABLET BY MOUTH ONCE DAILY WITH EVENING MEAL;?Continue Lisinopril Tablet, 40 MG, Take 1 tablet by mouth once daily;?Continue amLODIPine Besylate Tablet, 10 MG, Take 1 tablet by mouth once daily.?? * Labs:? * ?Lab: URINE DIP STICK ? Value Reference Range ?SG 1.020 1.005 - 1.025 * ?pH 5.0 5.0 - 9.0 * ?MIR 125 Negative - * ?NIT Negative Negative - * ?PRO 15 Negative - Trac e * ?GLU Negative Negative - * ?KET Negative Negative - * ?UBG 0.2 0.1 - 1.8 * ?ROME 1 0.2 - 1.3 * ?BLD Negative Negative - * ?Menstrating N/A * Procedure Codes:?80641 URINE -NO MICRO * Preventive Medicine:? ??Counseling:?Care goal follow-up plan:?Counseling for abnormal BMI given?Yes ?Above Normal BMI Follow-up?Dietary management education, guidance, and counseling, Dietary needs education, Exercise promotion: strength training, Exercise promotion: stretching, Feeding regime, Giving encouragement to exercise, Lifestyle education regarding diet, Nutrition / feeding management, Nutrition therapy, Prescribed activity/exercise education, Prescribed diet education, Prescribed dietary intake, Special diet education, Weight monitoring , Intervention, Order not done: Medical or Other reason not done * Follow Up:?4 Months (Reason: OV) * Images: * Sign off status: Completed true * Provider:?Carlos Alberto Sharpe MD Date:?03/31 Generated for Coreen chaudhry/Ash/eTransmitting on:?11/08/2024 02:31 PM EST History and Physical Notes * HPI (History of Present Illness) Category Sub-Category Detail Notes Depression Screening PHQ-9 Little inte rest or pleasure in doing things: Not at all Feeling down, depressed, or hopeless: No t at all Trouble falling or staying asleep, or sl eeping too much: Not at all Feeling tired or having little energy: N ot at all Poor appetite or overeating: Not at all Feeling bad about yourself o r that you are a failure, or have let yourself or your family down: Not at all Trouble concentrating on thi ngs, such as reading the newspaper or watching television: Not at all Moving or speaking so slowly that other people could have noticed; or the opposite, being so fidgety or restless that you have been moving around a lot more than usual: Not at all Thoughts that you would be b chandu off or of hurting yourself in some way: Not at all Total Score: 0 Fall Risk Screening Fall History Have you had any falls with injury in the past year?: No Have you had two or more falls in the ?: No Fall Risk Assessment:: No falls in the year COVID-19 Screening Questions Have you expe rienced fever, chills, cough, sore throat, shortness of breath, difficulty breathing, muscle aches, loss of taste or smell?: No Have you been exposed to the virus withi n the last 10 days?: No Have you travelled internationally in last 10 days?: No Have you been exposed to COVID-19 in the past?: No SDOH Questions SDOH Questions In the past year have you been worried about losing your housing?: No In the past year have you or any family members you live with been unable to get any of the following when it was really needed? Check all that apply:: None Examination Category Sub-Category Detail Notes General Examination GENERAL APPEARANCE: pleasant , well nourished, well developed, in no acute distress, calm and relaxed obese , man HEAD: atraumatic, normocep halic EYES: eomi, perrla, anicte camila, conjugate EARS: normal NOSE: septum intact NECK/THYROID: no jugular venous di stention, no carotid bruit, thyroid normal HEART: no clicks, gallops, murmurs, or rubs, regular rhythm, S1, S2 normal, no s3, or vascular bruits LUNGS: clear to auscultatio n ABDOMEN: bowel sounds normal, no ascites, no organomegaly, no mass , centripital obesity NEUROLOGIC: alert and oriented, cranial nerves 2-12 grossly intact, deep tendon reflexes 2+ symmetrical, motor strength normal upper and lower extremities, sensory exam intact SKIN: no suspicious lesion s, anicteric PERIPHERAL PULSES: normal BREASTS: no masses palpable b ilaterally MUSCULOSKELETAL: extremities unremark able, no clubbing, cyanosis or edema, Crepitus right knee to range of motion LYMPH NODES: no enlarged lymph no leticia,spleen normal RECTAL EXAM: Declined by the maryellen ent PSYCH: alert, oriented ORAL CAVITY: normal, unremarkable
--- OUTSIDE RECORDS SUMMARY | 2024-11-08 14:31 | XMS_ITS ---
Author Organization Carlos Alberto Sharpe III, MD Address [address] [place] [address] [place] [address] Care Team Providers Care Insurance Licensing Supervisor Name Role Phone Carlos Alberto Sharpe Primary Care Provider REASON FOR VISIT Rx Request Medications Medication SIG (Take, Route, Frequency, Duration) Notes Start Date End Date Status Triamcinolone Acetonide 0.1 % 1 application Externally Twice a day for 30 days 03/31/2022 Active Social History Sex Assigned At : Social History Observation Description Sex Assigned At Male Encounters Encounter Location Date Provider Diagnosis Carlos Alberto Sharpe III, MD [address] [place] [address] [place] [address] 10/21/2024 Carlos Alberto Sharpe Type 2 diabetes mellitus with diabetic chronic kidney disease, unspecified CKD stage, unspecified whether bioprocess engineer insulin use E11.22 Assessments Encounter Date Diagnosis (ICD Code) Assessment Notes Treatment Notes Treatment Clinical Notes 10/21/2024 Type 2 diabetes mellitus with diabetic chronic kidney disease, unspecified CKD stage, unspecified whether bioprocess engineer insulin use (ICD-10 - E11.22) His hemoglobin A1c is 7.3. He is compliant with his medication. He is trying to consume a healthy diabetic diet and lose weight. No change in his regimen was necessary today. Plan Of Treatment Medication Medication Name Sig Start Date Stop Date Notes Triamcinolone Acetonide 0.1 % 1 applicat ion Externally Twice a day for 30 days 03/31/2022 Next Appt Details Provider Name:Carlos Alberto Sharpe, 12/21/2024 11:15:00 AM, [address] [place] [address] [place], [address], Provider Name:Carlos Alberto Sharpe, 04/28/2025 10:30:00 AM, [address] [place] [address] DRKAL[address], [place], [address], Progress Notes * JASON HERBERDOB: [birth year] (84 yo M)Acc No.[id number]:10/21/2024 Patient:?JASON HERBER :1940???Age:84 Y???Sex:Male Address:[address] [place] [address] [place], [address] * Refills? Refill Triamcinolone Acetonide Cream, 0.1 %, Externally, 60 Gram, 1 application, Twice a day, 30 days, Refills=5 * true * Date:? Generated for Coreen chaudhry/Ash/Briansmitting on:?11/08/2024 02:30 PM EST
--- OUTSIDE RECORDS SUMMARY | 2024-11-08 14:31 | XMS_ITS ---
Author Organization Carlos Alberto Sharpe III, MD Address [address] [place] [address] Care Team Providers Care Vp Product Management Name Role Phone Carlos Alberto Sharpe Primary Care Provider Allergies Allergen (clinical drug ingredient) Drug/Non Drug Allergy documented on EMR Reaction Allergy Type Onset Date Status amoxicillin Amoxicillin Unknown Drug Allergy Act nancy REASON FOR VISIT Diabetes, Hypertension, Hyperlipidemia, Arthritis right knee, Obesity, Benign prostatic hypertrophy, Atrial fibrillation, Thrombocytopenia Medications Medication SIG (Take, Route, Frequency, Duration) Notes Start Date End Date Status Lisinopril 40 MG 1 tablet Orally Once a day 08/26/2023 Active Eliquis 5 MG TAKE 1 TABLET BY CHRISTIE TH TWICE DAILY Oral Active Triamcinolone Acetonide 0.1 % 1 application Externally Twice a day 03/31/2022 Active Lisinopril 40 MG Take 1 tablet by christie th once daily Active amLODIPine Besylate 10 MG Take 1 tablet by mouth once daily Active Pravastatin Sodium 40 MG 1 tablet Orally Once a day Active metFORMIN HCl ER 500 MG TAKE 1 TABLET BY MOUTH ONCE DAILY WITH EVENING MEAL Active Social History Tobacco Use: Social History Observation Description Date Details (start date - stop date) Never Smoker NA - NA Sex Assigned At : Social History Observation Description Sex Assigned At Male Tobacco Use/Smoking Question Answer Notes Patient is a nonsmoker Additional Findings: Tobacco Non-User Aggressive non-smoker Vital Signs Temperature 98.2 degrees Fahrenheit 08/29/20 24 Blood pressure systolic 130 mm Hg 08/29/20 24 Blood pressure diastolic 80 mm Hg 024 Heart Rate 54 /min 08/29/2024 Height 69 in 08/29/2024 Weight 214 lbs 08/29/2024 BMI 31.6 kg/m2 08/29/2024 Encounters Encounter Location Date Provider Diagnosis Carlos Alberto Sharpe III, MD [address] [place] [address] [place] [address] 08/29/2024 Carlos Alberto Sharpe 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, unspecified CKD stage, unspecified whether halfway insulin use E11.22 ; Mixed hyperlipidemia E78.2 ; Benign prostatic hyperplasia, unspecified whether lower urinary tract symptoms present N40.0 ; Essential hypertension I10 ; Arthritis of right knee M17.11 ; Atrial fibrillation, unspecified type I48.91 and Thrombocytopenia D69.6 Assessments Encounter Date Diagnosis (ICD Code) Assessment Notes Treat ment Notes Treatment Clinical Notes 08/29/2024 Type 2 diabetes mellitus with diabetic chronic kidney disease, unspecified CKD stage, unspecified whether halfway insulin use (ICD-10 - E11.22) His hemoglobin A1c is 7.3. He is compliant with his medication. He is trying to consume a healthy diabetic diet and lose weight. No change in his regimen was necessary today. 08/29/2024 Mixed hyperlipidemia (ICD-10 - E78.2) His lipids are currently stable and no change in his regimen was needed. 08/29/2024 Benign prostatic hyperplasia, unspecified whether lower urinary tract symptoms present (ICD-10 - N40.0) He experiences nocturia once or twice a night depending upon fluid intake. We have discussed modifications in his life so they could reduce this. 08/29/2024 Essential hypertensi on (ICD-10 - I10) His blood pressure is controlled at 130/80 and no change in his regimen was needed today. I have recommended aggressive weight loss and sodium restriction. 08/29/2024 Arthritis of right knee (ICD-10 - M17.11) He is completing all of the activities of daily life with his bilateral knee replacements. 08/29/2024 Atrial fibrillation, unspecified type (ICD-10 - I48.91) He was in atrial fibrillation today with a slow controlled rate. No murmurs were heard. 08/29/2024 Thrombocytopenia (ICD-10 - D69.6) His platelets have improved to 1 27,000. He has had no bleeding and he is avoiding aspirin. The value will be observed without treatment. No change in his regimen was needed. Plan Of Treatment Medication Medication Name Sig Start Date Stop Date Notes Lisinopril 40 MG 1 tablet Orally Once a day 08/26/2023 Eliquis 5 MG TAKE 1 TABLET BY CHRISTIE TH TWICE DAILY Oral Triamcinolone Acetonide 0.1 % 1 applicat ion Externally Twice a day 03/31/2022 Lisinopril 40 MG Take 1 tablet by christie th once daily amLODIPine Besylate 10 MG Take 1 tablet by mouth once daily Pravastatin Sodium 40 MG 1 tablet Orally Once a day metFORMIN HCl ER 500 MG TAKE 1 TABLET BY MOUTH ONCE DAILY WITH EVENING MEAL Pending Test Test Name Order Date PROFILE, FASTING (COMPREHENSIVE METABOLI C) 08/29/2024 PSA, TOTAL 08/29/2024 CBC WITH AUTO DIFF 08/29/2024 Lipid Panel 08/29/2024 Hemoglobin A1c 08/29/2024 Next Appt Details Follow Up: 4 Months, Reason: OV Provider Name:Carlos Alberto Sharpe, 12/21/2024 11:15:00 AM, [address] [place] [address] [address], [place], [phone], Provider Name:Carlos Alberto Sharpe, 04/28/2025 10:30:00 AM, [address] [place] [address] [address], [place], [address], Progress Notes * MINA GOMEZDOB: [birth year] (84 yo M)Acc No.[id number]:08/29/2024 Progress Notes Patient:?MINA GOMEZ Provider:?Carlos Alberto Sharpe MD :1940???Age:84 Y???Sex:Male Emmett e:08/29/2024 Address:[address] [place], [place] [address], [id number] Subjective: * Chief Complaints: * ???DiabetesHypertensionHyper lipidemiaArthritis right kneeObesityBenign prostatic hypertrophyAtrial fibrillationThrombocytopenia * HPI: ???COVID-19 Screening:?He returns to the office for medical management.? Last March when he was in [place] he developed benign positional vertigo primarily with lying flat on his back.? This has persisted but has improved and he finds it a nuisance.? He has an area of skin on his right lateral thorax which constantly itches.? On examination there was an area of red inflammation.? The cause is unclear.? He was given a refill on triamcinolone. His heart rate was well controlled today in a slow atrial fibrillation.? He is rising from sleep once or twice a night to urinate.? We have discussed lifestyle modifications as a way to reduce nocturia.? He continues to try and lose weight.? He has had no bleeding. ?Questions?Have you experienced fever, chills, cough, sore throat, shortness of breath, difficulty breathing, muscle aches, loss of taste or smell??No ?Have you been exposed to the virus within the last 10 days??No ?Have you travelled internationally in the last 10 days??No ?Have you been exposed to COVID-19 in the past??No * ROS:?General/Constitutional:?pain?only normal aches and pains.?Chills?denies.?Fatigue?admits.?Fever?denies.?ENT:?Decreased hearing?mild.?Respiratory:?Cough?denies.?Cardiovascular:?Chest pain with exertion?denies.?Dyspnea on exertion?denies.?Shortness of breath?denies.?Gastrointestinal:?Constipation?occasional.?Decreased appetite?denies.?Diarrhea?denies.?Heartburn?denies.?Nausea?denies.?Rectal bleeding?denies.?Vomiting?denies.?Hematology:?bruising?denies.?petechiae?denies.?Swollen glands?none have been noted.?Genitourinary:?Frequent urination?once a night.?Musculoskeletal:?Muscle aches?denies.?Painful joints?denies.?Sciatica?denies.?Weakness?denies.?Skin:?Itching?denies.?Rash?denies.?Skin lesion(s)?denies.?Neurologic:?Difficulty speaking?denies.?Dizziness?denies.?Headache?denies.?Low back pain?denies.?Psychiatric:?Depressed mood?denies.? * Medical History:? * Surgical History:?right eye cataract surgery 2019bilateral knee replacentnts 2015age 14 upper tooth denture Age 18 Full upper dentures Age 30 Failed Vasectomy Age 50 Rectal Surgery in [place] Dr. Johnson * Hospitalization/Major Diagno stic Procedure:?Denies Past Hospitalization * Family History:?Father: dece ased 82 yrs, diabetes,chf, etoh, smoker, diagnosed with DM, HTN, CVD.?Mother: 66 yrs, quadrplegic since fall, [place], [place], [...] is a?nonsmoker ?Additional Findings: Tobacco Non-User?Aggressive non-smoker ???He does not drink or smoke. He is retired. He is to [place] for the last 61 years. His became quadriplegic after a fall and of pneumonia. She also had multiple sclerosis. 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 His 2 children and 4 grandsons are healthy. * Medications:?TakingPravastat in Sodium 40 MG Tablet 1 tablet Orally Once a day metFORMIN HCl ER 500 MG Tablet Extended Release 24 Hour TAKE 1 TABLET BY MOUTH ONCE DAILY WITH EVENING MEAL Lisinopril 40 MG Tablet Take 1 tablet by mouth once daily amLODIPine Besylate 10 MG Tablet Take 1 tablet by mouth once daily Triamcinolone Acetonide 0.1 % Cream 1 application Externally Twice a day Lisinopril 40 MG Tablet 1 tablet Orally Once a day Eliquis 5 MG Tablet TAKE 1 TABLET BY MOUTH TWICE DAILY Oral Medication List reviewed and reconciled with the patientTaking Pravastatin Sodium 40 MG Tablet 1 tablet Orally Once a day Taking metFORMIN HCl ER 500 MG Tablet Extended Release 24 Hour TAKE 1 TABLET BY MOUTH ONCE DAILY WITH EVENING MEAL Taking Lisinopril 40 MG Tablet Take 1 tablet by mouth once daily Taking amLODIPine Besylate 10 MG Tablet Take 1 tablet by mouth once daily Taking Triamcinolone Acetonide 0.1 % Cream 1 application Externally Twice a day Taking Lisinopril 40 MG Tablet 1 tablet Orally Once a day Taking Eliquis 5 MG Tablet TAKE 1 TABLET BY MOUTH TWICE DAILY Oral Medication List reviewed and reconciled with the patient * Allergies:?Amoxicillinno[All ergies Verified] Objective: * Vitals:?Ht: 69, Wt:214, BMI: 31.6, BP:130/80, HR:54, Temp:98.2, Wt-k.07. * ???Past Orders: Lab:Comprehensive Ir[facility]. Dylan l Fast * Collection Date 08/22/2024 04/20/2024 11/18/2023 Collection Time 10:40 AM 10:40 AM 11:13 AM Order Date 08/22/2024 04/20/2024 11/18/2023 Sodium 142 (Ref Range: 135-145 mmol/L) 138 (Ref Range: 135-145 mmol/L) 140 (Ref Range: 135-145 mmol/L) Bilirubin Total 0.5 (Ref Range: 0.0-1.0 mg/dL) 0.6 (Ref Range: 0.0-1.0 mg/dL) 0.6 (Ref Range: 0.0-1.0 mg/dL) Aspartate Amino Transferase 18 (Ref Range: 5-37 U/L) 20 (Ref Range: 5-37 U/L) 18 (Ref Range: 5-37 U/L) Alanine Aminotransferase 16 (Ref Range: 0-40 U/L) 17 (Ref Range: 0-40 U/L) 13 (Ref Range: 0-40 U/L) Total Protein 7.0 (Ref Range: 6.5-8.0 g/dL) 6.9 (Ref Range: 6.5-8.0 g/dL) 7.1 (Ref Range: 6.5-8.0 g/dL) Albumin Level 4.3 (Ref Range: 3.5-5.0 g/dL) 4.0 (Ref Range: 3.5-5.0 g/dL) 4.2 (Ref Range: 3.5-5.0 g/dL) Alkaline Phosphatase 52 (Ref Range: 39-117 U/L) 47 (Ref Range: 39-117 U/L) 53 (Ref Range: 39-117 U/L) Potassium 4.1 (Ref Range: 3.3-5.1 mmol/L) 4.7 (Ref Range: 3.3-5.1 mmol/L) 4.6 (Ref Range: 3.3-5.1 mmol/L) Chloride 108 (Ref Range: 96-108 mmol/L) 106 (Ref Range: 96-108 mmol/L) 105 (Ref Range: 96-108 mmol/L) Carbon Dioxide 26 (Ref Range: 22-29 mmol/L) 23 (Ref Range: 22-29 mmol/L) 25 (Ref Range: 22-29 mmol/L) Anion Gap 12 (Ref Range: 12-20) 14 (Ref Range: 12-20) 15 (Ref Range: 12-20) Blood Urea Nitrogen 19?H (Ref Range: 9-16 mg/dL) 18?H (Ref Range: 9-16 mg/dL) 23?H (Ref Range: 9-16 mg/dL) Creatinine 1.23 (Ref Range: 0.5-1.4 mg/dL) 1.23 (Ref Range: 0.5-1.4 mg/dL) 1.17 (Ref Range: 0.5-1.4 mg/dL) Estimated Glomerular Filt Rate 56 56 59 Glucose Fasting 143?H (Ref Range: 60-99 mg/dL) 158?H (Ref Range: 60-99 mg/dL) 138?H (Ref Range: 60-99 mg/dL) Calcium 9.3 (Ref Range: 8.4-10.2 mg/dL) 9.2 (Ref Range: 8.4-10.2 mg/dL) 9.3 (Ref Range: 8.4-10.2 mg/dL) * Lab:Lipid Panel * Collection Date 08/22/2024 04/20/2024 11/18/2023 Collection Time 10:40 AM 10:40 AM 11:13 AM Order Date 08/22/2024 04/20/2024 11/18/2023 Triglycerides 89 (Ref Range: <150 mg/dL) 92 (Ref Range: <150 mg/dL) 71 (Ref Range: <150 mg/dL) Cholesterol 140 (Ref Range: <200 mg/dL) 157 (Ref Range: <200 mg/dL) 147 (Ref Range: <200 mg/dL) LDL Cholesterol Calculated 70 (Ref Range: <100 mg/dL) 85 (Ref Range: <100 mg/dL) 75 (Ref Range: <100 mg/dL) HDL Cholesterol 53 (Ref Range: >40 mg/dL) 54 (Ref Range: >40 mg/dL) 58 (Ref Range: >40 mg/dL) * Lab:Microalbumin, Random * Collection Date 08/22/2024 04/20/2024 11/18/2023 Collection Time 10:40 AM 10:35 AM 11:12 AM Order Date 08/22/2024 04/20/2024 11/18/2023 Creatinine Urine 110.76 (Ref Range: mg/dL) 109.79 (Ref Range: mg/dL) 76.25 (Ref Range: mg/dL) Microalbumin Urine 7.0 (Ref Range: mg/L) < 5.0 (Ref Range: mg/L) 5.0 (Ref Range: mg/L) Microalbum Creatinine Ratio Ur 6.3 (Ref Range: <30 ug/mg cr) TNP (Ref Range: <30 ug/mg cr) 6.5 (Ref Range: <30 ug/mg cr) * Lab:Hemoglobin A1c * Collection Date 08/22/2024 04/20/2024 11/18/2023 Collection Time 10:40 AM 10:40 AM 11:13 AM Order Date 08/22/2024 04/20/2024 11/18/2023 Hemoglobin A1c % 7.3?H (Ref Range: <6.0 %) 7.5?H (Ref Range: <6.0 %) 7.2?H (Ref Range: <6.0 %) Estimated Average Glucose 163 (Ref Range: mg/dL) 169 (Ref Range: mg/dL) 160 (Ref Range: mg/dL) * Lab:Complete Blood Count Aut o Diff * Collection Date 08/22/2024 04/20/2024 11/18/2023 Collection Time 10:40 AM 10:40 AM 11:13 AM Order Date 08/22/2024 04/20/2024 11/18/2023 White Blood Count 7.0 (Ref Range: 4.8-10.8 X10*3/uL) 6.3 (Ref Range: 4.8-10.8 X10*3/uL) 6.1 (Ref Range: 4.8-10.8 X10*3/uL) Red Blood Count 4.67 (Ref Range: 4.60-5.80 X10*6/uL) 4.69 (Ref Range: 4.60-5.80 X10*6/uL) 4.84 (Ref Range: 4.60-5.80 X10*6/uL) Hemoglobin 14.3 (Ref Range: 14.0-18.0 g/dl) 14.3 (Ref Range: 14.0-18.0 g/dl) 14.7 (Ref Range: 14.0-18.0 g/dl) Hematocrit 42.7 (Ref Range: 42.0-52.0 %) 43.4 (Ref Range: 42.0-52.0 %) 44.7 (Ref Range: 42.0-52.0 %) Mean Corpuscular Volume 91.4 (Ref Range: 80.0-98.0 fL) 92.5 (Ref Range: 80.0-98.0 fL) 92.4 (Ref Range: 80.0-98.0 fL) Mean Corpuscular Hemoglobin 30.6 (Ref Range: 27.0-33.0 pg) 30.5 (Ref Range: 27.0-33.0 pg) 30.4 (Ref Range: 27.0-33.0 pg) Mean Corpuscular HGB Conc 33.5 (Ref Range: 31.0-36.0 g/dl) 32.9 (Ref Range: 31.0-36.0 g/dl) 32.9 (Ref Range: 31.0-36.0 g/dl) Red Cell Distribution Width 12.9 (Ref Range: 11.0-16.0 %) 13.5 (Ref Range: 11.0-16.0 %) 13.1 (Ref Range: 11.0-16.0 %) Platelet Count 127?L (Ref Range: 160-400 X10*3/uL) 114?L (Ref Range: 160-400 X10*3/uL) 133?L (Ref Range: 160-400 X10*3/uL) Mean Platelet Volume 12.8?H (Ref Range: 9.4-12.4 fL) 12.3 (Ref Range: 9.4-12.4 fL) 13.1?H (Ref Range: 9.4-12.4 fL) Neutrophils Percent Auto 65.5 (Ref Range: 45-73 %) 53.4 (Ref Range: 45-73 %) 55.7 (Ref Range: 45-73 %) Imm Gran Pct Auto 0.3 (Ref Range: 0.0-0.4 %) 0.3 (Ref Range: 0.0-0.4 %) 0.3 (Ref Range: 0.0-0.4 %) Lymphocytes Percent Auto 20.2 (Ref Range: 20-40 %) 26.5 (Ref Range: 20-40 %) 28.7 (Ref Range: 20-40 %) Monocytes Percent Auto 8.3 (Ref Range: 2-11 %) 8.7 (Ref Range: 2-11 %) 8.7 (Ref Range: 2-11 %) Eosinophils Percent Auto 4.8?H (Ref Range: 0-4 %) 10.0?H (Ref Range: 0-4 %) 5.8?H (Ref Range: 0-4 %) Basophils Percent Auto 0.9 (Ref Range: 0-2 %) 1.1 (Ref Range: 0-2 %) 0.8 (Ref Range: 0-2 %) NRBC Pct Auto 0.0 (Ref Range: 0.0-0.2 /100WBC) 0.0 (Ref Range: 0.0-0.2 /100WBC) 0.0 (Ref Range: 0.0-0.2 /100WBC) Neutrophils Absolute Auto 4.6 (Ref Range: 2.0-8.3 x10*3/uL) 3.4 (Ref Range: 2.0-8.3 x10*3/uL) 3.4 (Ref Range: 2.0-8.3 x10*3/uL) Imm Gran Abs Auto 0.02 (Ref Range: 0.00-0.03 X10*3/uL) 0.02 (Ref Range: 0.00-0.03 X10*3/uL) 0.02 (Ref Range: 0.00-0.03 X10*3/uL) Lymphocytes Absolute Auto 1.4 (Ref Range: 1.2-4.9 X10*3/uL) 1.7 (Ref Range: 1.2-4.9 X10*3/uL) 1.7 (Ref Range: 1.2-4.9 X10*3/uL) Monocytes Absolute Auto 0.6 (Ref Range: 0.1-1.2 X10*3/uL) 0.6 (Ref Range: 0.1-1.2 X10*3/uL) 0.5 (Ref Range: 0.1-1.2 X10*3/uL) Eosinophils Absolute Auto 0.3 (Ref Range: 0.0-0.4 X10*3/uL) 0.6?H (Ref Range: 0.0-0.4 X10*3/uL) 0.4 (Ref Range: 0.0-0.4 X10*3/uL) Basophils Absolute Auto 0.1 (Ref Range: 0.0-0.2 X10*3/uL) 0.1 (Ref Range: 0.0-0.2 X10*3/uL) 0.1 (Ref Range: 0.0-0.2 X10*3/uL) NRBC Abs Auto 0.000 (Ref Range: 0.0-0.012 X10*3/uL) 0.000 (Ref Range: 0.0-0.012 X10*3/uL) 0.000 (Ref Range: 0.0-0.012 X10*3/uL) * Examination: ???General Examination: ?GENERAL APPEARANCE:?pleasant, well nourished, well developed, in no acute distress, calm and relaxed, obese, elderly man.?HEAD:?atraumatic, normocephalic.?EYES:?eomi, perrla, anicteric, conjugate.?EARS:?normal.?NOSE:?septum intact.?ORAL CAVITY:?normal, unremarkable.?NECK/THYROID:?no jugular venous distention, no carotid bruit, thyroid normal.?LYMPH NODES:?no enlarged lymph nodes,spleen normal.?SKIN:?no suspicious lesions, anicteric, No petechiae or purpura.?HEART:?no clicks, gallops, murmurs, or rubs, irregular rhythm, S1, S2 normal, no s3, or vascular bruits.?LUNGS:?clear to auscultation .?BREASTS:??no masses palpable bilaterally.?ABDOMEN:?bowel sounds normal, no ascites, no organomegaly, no mass, centripital obesity.?RECTAL EXAM:?not examined.?MUSCULOSKELETAL:?extremities unremarkable, no clubbing, cyanosis or edema.?PERIPHERAL PULSES:?normal.?NEUROLOGIC:?alert and oriented, cranial nerves 2-12 grossly intact, deep tendon reflexes 2+ symmetrical, motor strength normal upper and lower extremities, sensory exam intact.?PSYCH:?alert, oriented.? Assessment: * Assessment: 1.?Type 2 diabetes mellitus with diabetic chronic kidney disease, unspecified CKD stage, unspecified whether halfway insulin use - E11.22 (Primary)???Notes :His hemoglobin A1c is 7.3. He is compliant with his medication. He is trying to consume a healthy diabetic diet and lose weight. No change in his regimen was necessary today.???2.?Mixed hyperlipidemia - E78.2???Notes :His lipids are currently stable and no change in his regimen was needed.???3.?Benign prostatic hyperplasia, unspecified whether lower urinary tract symptoms present - N40.0???Notes :He experiences nocturia once or twice a night depending upon fluid intake.? We have discussed modifications in his life so they could reduce this.???4.?Essential hypertension - I10???Notes :His blood pressure is controlled at 130/80 and no change in his regimen was needed today. I have recommended aggressive weight loss and sodium restriction.???5.?Arthritis of right knee - M17.11???Notes :He is completing all of the activities of daily life with his bilateral knee replacements.???6.?Atrial fibrillation, unspecified type - I48.91???Notes :He was in atrial fibrillation today with a slow controlled rate. No murmurs were heard.???7.?Thrombocytopenia - D69.6???Notes :His platelets have improved to 1 27,000. He has had no bleeding and he is avoiding aspirin. The value will be observed without treatment. No change in his regimen was needed.??? Plan: * Treatment: 2.?Mixed hyperlipidemia?LAB: PROFILE, FASTING (COMPREHENSIVE METABOLIC) ?LAB: PSA, TOTAL ?LAB: CBC WITH AUTO DIFF ?LAB: Lipid Panel ?LAB: Hemoglobin A1c 3.?Benign prostatic hyperpla mary kate, unspecified whether lower urinary tract symptoms present?LAB: PROFILE, FASTING (COMPREHENSIVE METABOLIC) ?LAB: PSA, TOTAL ?LAB: CBC WITH AUTO DIFF ?LAB: Lipid Panel ?LAB: Hemoglobin A1c 4.?Others? Continue metFORMIN HCl ER Tablet Extended Release 24 Hour, 500 MG, TAKE 1 TABLET BY MOUTH ONCE DAILY WITH EVENING MEAL;?Continue Lisinopril Tablet, 40 MG, Take 1 tablet by mouth once daily;?Continue amLODIPine Besylate Tablet, 10 MG, Take 1 tablet by mouth once daily.?? * Procedure Codes:? * Preventive Medicine:? ??DM Care Plan:?Patient Lifestyle Goals?Patient wants to be able to manage diabetes without too much effort.?Treatment Goals?Blood Sugars less than < 115, HbA1C < 7.0.?Barriers?no barriers.?Self-Managment Goals?Work on weight loss, with a goal of losing 1 lb per week.? ??Counseling:?Care goal follow-up plan:?Counseling for abnormal BMI [...] Completed true * Provider:?Carlos Alberto Sharpe MD Date:?08/02 Generated for Printi ng/Ash/eTransmitting on:?11/08/2024 02:30 PM EST History and Physical Notes * HPI (History of Present Illness) Category Sub-Category Detail Notes COVID-19 Screening Questions Have you expe rienced fever, chills, cough, sore throat, shortness of breath, difficulty breathing, muscle aches, loss of taste or smell?: No Have you been exposed to the virus withi n the last 10 days?: No Have you travelled internationally in [facility] last 10 days?: No Have you been exposed to COVID-19 in the past?: No Examination Category Sub-Category Detail Notes General Examination GENERAL APPEARANCE: pleasant , well nourished, well developed, in no acute distress, calm and relaxed, obese, elderly man HEAD: atraumatic, normocep halic EYES: eomi, perrla, anicte camila, conjugate EARS: normal NOSE: septum intact NECK/THYROID: no jugular venous di stention, no carotid bruit, thyroid normal HEART: no clicks, gallops, murmurs, or rubs, irregular rhythm, S1, S2 normal, no s3, or vascular bruits LUNGS: clear to auscultatio n ABDOMEN: bowel sounds normal, no ascites, no organomegaly, no mass, centripital obesity NEUROLOGIC: alert and oriented, cranial nerves 2-12 grossly intact, deep tendon reflexes 2+ symmetrical, motor strength normal upper and lower extremities, sensory exam intact SKIN: no suspicious lesion s, anicteric, No petechiae or purpura PERIPHERAL PULSES: normal BREASTS: no masses palpable b ilaterally MUSCULOSKELETAL: extremities unremark able, no clubbing, cyanosis or edema LYMPH NODES: no enlarged lymph no leticia,spleen normal RECTAL EXAM: not examined PSYCH: alert, oriented ORAL CAVITY: normal, unremarkable
--- NOTE | 2024-11-10 12:10 | HO.ANESPROP2 ---
Documented by User: Christa Mina NP 11/10/24 12:11 HPI - Anesthesia Eval Consult details Narrative: 84yo M for Cardioversion Eliquis for afib PMFSH Active Problems Active Problems: All Active Problems Persistent atrial fibrillation (Acute) Hyperlipidemia (Acute) Diabetes mellitus (Acute) HTN (hypertension) (Acute) Cardiac arrhythmia (Acute) Past Medical History Medical History Hyperlipidemia Diabetes mellitus HTN (hypertension) Surgical History Surgical History Hx of bilateral cataract extraction History of colon resection Hx of colonoscopy Social History Social History Are you a primary urgent care nurse practitioner to a significant other at home: No Do you presently have visiting nurse or other home services: No Alcohol intake: current Alcohol intake frequency: holidays/special occasions only Patient Tobacco Use Status: Never used Tobacco Have you been hit, kicked, punched, or otherwise hurt by someone within the past year? If so, by whom?: No Are you DNR?: No Advance Directives: No Advance Directives Information Provided: Yes Recently lost weight without trying: No Nutrition Risks: No Nutritional Risk Meds Allergies Allergy/AdvReac Type Severity Reaction Status Date / Time amoxicillin Allergy Unknown hives Verified 11/11/24 12:32 levofloxacin [Levaquin] Allergy Unknown Hives Verified 11/11/24 12:32 procaine [From NOVOCAIN] Allergy Unknown UNKNOWN Verified 11/11/24 12:32 shellfish Allergy Unknown anaphylaxis Uncoded 11/11/24 12:32 Home Medications ?Medication ?Instructions ?Recorded ?Confirmed ?Last Taken ?Type amlodipine 10 mg tablet 10 mg PO DAILY 07/16/23 11/11/24 11/11/24 History lisinopril 40 mg tablet 40 mg PO DAILY 07/16/23 11/11/24 Unknown History metformin 500 mg tablet,extended 500 mg PO DAILY 07/16/23 11/11/24 Unknown History release 24 hr pravastatin 40 mg tablet 40 mg PO DAILY 07/16/23 11/11/24 Unknown History triamcinolone acetonide 0.1 % 1 appl topical BID-TID 07/16/23 11/11/24 Unknown History topical cream metformin 500 mg tablet,extended 500 mg PO QPM 11/10/24 11/11/24 Unknown History release 24 hr Exam Narrative Narrative: ECHO 07/2024 Conclusions: - 1. Normal LV ejection fraction of 55-60% 2. At least mildly dilated left atrium 3. Normal cardiac valvular Dopplers 4. Normal RV systolic pressure Assessment and Plan Assessment Anesthesia Assessment: Chart Reviewed Documented by User: Goldie Oswald MD 11/11/24 14:07 HPI - Anesthesia Eval Consult details Narrative: 84yo M for Cardioversion Eliquis for afib. Last dose today 11/11/24 PMFSH Past Medical History Medical History Hyperlipidemia Diabetes mellitus HTN (hypertension) Family History Family history of problems with anesthesia: No Surgical History Surgical History Hx of bilateral cataract extraction History of colon resection Hx of colonoscopy History of Problems with Anesthesia: No Social History Social History Are you a primary urgent care nurse practitioner to a significant other at home: No Do you presently have visiting nurse or other home services: No Alcohol intake: current Alcohol intake frequency: holidays/special occasions only Patient Tobacco Use Status: Never used Tobacco Have you been hit, kicked, punched, or otherwise hurt by someone within the past year? If so, by whom?: No Are you DNR?: No Advance Directives: No Advance Directives Information Provided: Yes Recently lost weight without trying: No Nutrition Risks: No Nutritional Risk Meds Allergies Allergy/AdvReac Type Severity Reaction Status Date / Time amoxicillin Allergy Unknown hives Verified 11/11/24 12:32 levofloxacin [Levaquin] Allergy Unknown Hives Verified 11/11/24 12:32 procaine [From NOVOCAIN] Allergy Unknown UNKNOWN Verified 11/11/24 12:32 shellfish Allergy Unknown anaphylaxis Uncoded 11/11/24 12:32 Home Medications ?Medication ?Instructions ?Recorded ?Confirmed ?Last Taken ?Type amlodipine 10 mg tablet 10 mg PO DAILY 07/16/23 11/11/24 11/11/24 History lisinopril 40 mg tablet 40 mg PO DAILY 07/16/23 11/11/24 Unknown History metformin 500 mg tablet,extended 500 mg PO DAILY 07/16/23 11/11/24 Unknown History release 24 hr pravastatin 40 mg tablet 40 mg PO DAILY 07/16/23 11/11/24 Unknown History triamcinolone acetonide 0.1 % 1 appl topical BID-TID 07/16/23 11/11/24 Unknown History topical cream metformin 500 mg tablet,extended 500 mg PO QPM 11/10/24 11/11/24 Unknown History release 24 hr Exam Height,Weight and Vital Signs: Height 5 ft 10 in Weight 98.883 kg Vital Signs Temp Pulse Resp BP Pulse Ox O2 Del Method 11/11/24 13:25 98.1 F 80 18 126/75 97 Room Air Airway Mallampati Class: III TM Dist: >3cm Neck ROM: Full Denture: Upper Partial: Lower Loose/Missing/Broken Teeth: Yes (Denies broken or loose teeth) Heart: Irregularly irregular Lungs: CTAB Assessment and Plan Assessment Anesthesia Assessment: Anesthesia Plan Discussed and Chart Reviewed Final Anesthetic Review Family History of Problems with Anesthesia: No History of Problems with Anesthesia: No NPO: Yes ASA Class: III Final Preanesthetic Review: No Changes in Pt Med Stat, Meds/Allgs Chart Reviewed, Consent Obtained/Reviewed and Anes Risks/Benef Reviewed Patient Risk: Intermediate Procedure Risk: Intermediate Assessment/Block/Sedation in SS: Assess/Block/Sedation-SS Anesthetic Plan Anesthetic Plan: GA Disposition: Standard PACU
--- OUTSIDE RECORDS SUMMARY | 2024-11-11 12:07 | XMS_ITS ---
Author Organization Carlos Alberto Sharpe III, MD Address [address] [place] [address] [place] [address] Care Team Providers Care Patient Care Assistant Name Role Phone Carlos Alberto Sharpe Primary [...] Provider Diagnosis Carlos Alberto Sharpe III, MD [address] [place] [address] [place] [address] 10/21/2024 Carlos Alberto Sharpe Type 2 diabetes mellitus with diabetic chronic kidney disease, unspecified CKD stage, unspecified whether intermediate project manager insulin use E11.22 Assessments Encounter Date Diagnosis (ICD Code) Assessment Notes Treatment Notes Treatment Clinical Notes 10/21/2024 Type 2 diabetes mellitus with diabetic chronic kidney disease, unspecified CKD stage, unspecified whether intermediate project manager insulin use (ICD-10 - E11.22) His hemoglobin [...] Provider Name:Carlos Alberto Sharpe, 12/21/2024 11:15:00 AM, [address] [place] [address] [place], [address], Provider Name:Carlos Alberto Sharpe, 04/28/2025 10:30:00 AM, [address] [place] [address] [address], [place], [address], Progress Notes * ALLISON GOMEZSONALDOB: 8 (84 yo M)Acc No.[id number]:10/21/2024 Patient:?JASON HERBER :1940???Age:84 Y???Sex:Male Address:[address] [place] [address] [place], [address] * Refills? Refill Triamcinolone Acetonide Cream, 0.1 %, Externally, 60 Gram, 1 application, Twice a day, 30 days, Refills=5 * true * Date:? Generated for Coreen chaudhry/Ash/Briansmitting on:?11/11/2024 12:07 PM EST
--- OUTSIDE RECORDS SUMMARY | 2024-11-11 12:07 | XMS_ITS ---
Author Organization Carlos Alberto Sharpe III, MD Address [address] [place] [address] [place] [address] Care Team Providers Care Management And Budget Analyst Name Role Phone Carlos Alberto Sharpe Primary Care Provider [phone] Allergies Allergen (clinical drug ingredient) Drug/Non Drug [...] Provider Diagnosis Carlos Alberto Sharpe III, MD [address] [place] [address] [place] [address] 08/29/2024 Carlos Alberto Sharpe 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, unspecified CKD stage, unspecified whether assisted insulin use E11.22 ; Mixed hyperlipidemia E78.2 [...] Provider Name:Carlos Alberto Sharpe, 12/21/2024 11:15:00 AM, [address] [place] [address] [address], [place], [address], Provider Name:Carlos Alberto Sharpe, 04/28/2025 10:30:00 AM, [address] [place] [address] [address], [place], [address], Progress Notes * MINA GOMEZDOB: [birth year] (84 yo M)Acc No.[id number]:08/29/2024 Progress Notes Patient:?MINA GOMEZ Provider:?Carlos Alberto Sharpe MD :1940???Age:84 Y???Sex:Male Emmett e:08/29/2024 Address:[address] [place], [place] [address], [id number] Subjective: * Chief Complaints: * ???DiabetesHypertensionHyper lipidemiaArthritis right kneeObesityBenign prostatic hypertrophyAtrial fibrillationThrombocytopenia * HPI: ???COVID-19 Screening:?He returns to the office for medical management.? Last March when he was in [place] he developed benign positional vertigo primarily with [...] Failed Vasectomy Age 50 Rectal Surgery in [place] Dr. Johnson * Hospitalization/Major Diagno stic Procedure:?Denies [...] had multiple sclerosis. 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 [...] CKD stage, unspecified whether assisted insulin use - E11.22 (Primary)???Notes :His hemoglobin [...] Alberto Sharpe MD Date:?08/02 Generated for Printi isidoro/Ash/eTransmitting on:?11/11/2024 12:07 PM EST History and Physical Notes * HPI (History of Present Illness) Category Sub-Category Detail Notes COVID-19 Screening Questions Have you had any new onset fever, chills, cough, congestion, sore throat, shortness of breath, muscle aches?: No Have you been exposed to the virus withi n the last 10 days?: No Have you travelled internationally in [facility] last 10 days?: No Have you [...]
--- OUTSIDE RECORDS SUMMARY | 2024-11-11 12:07 | XMS_ITS ---
Author Organization Carlos Alberto Sharpe III, MD Address [address] [place] [address] Care Team Providers Care Warrant Server Name Role Phone Carlos Alberto Sharpe Primary Care Provider [phone] Allergies Allergen (clinical drug ingredient) Drug/Non Drug [...] Provider Diagnosis Carlos Alberto Sharpe III, MD [address] [place] [address] [address] [place], [place] [address] 04/27/2024 Carlos Alberto Sharpe 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, unspecified CKD stage, unspecified whether press tender long goods insulin use E11.22 ; Essential hypertension I10 ; Benign prostatic hyperplasia, unspecified whether lower urinary tract symptoms present N40.0 ; Mixed hyperlipidemia E78.2 ; Obesity (BMI 30.0-34.9) E66.9 and Thrombocytopenia D69.6 Assessments Encounter Date Diagnosis (ICD Code) Assessment Notes Treat ment Notes Treatment Clinical Notes 04/27/2024 Type 2 diabetes mellitus with diabetic chronic kidney disease, unspecified CKD stage, unspecified whether prison insulin use (ICD-10 - E11.22) His hemoglobin [...] Provider Name:Carlos Alberto Sharpe, 12/21/2024 11:15:00 AM, [address] [place] [address] [address], [place], [phone], Provider Name:Carlos Alberto Sharpe, 04/28/2025 10:30:00 AM, [address] [place] [address] [address], [place], [phone], Progress Notes * MINA GOMEZDOB: [birth year] (83 yo M)Acc No.[id number]:04/27/2024 Progress Notes Patient:?JASON MINA Provider:?Carlos Alberto Sharpe MD :1940???Age:83 Y???Sex:Male Emmett e:04/27/2024 Address:[address] [place] [address] [facility] [phone] Subjective: * Chief Complaints: * ???Annual Exam * HPI: ???Depression Screening:? He returns to the office at the age of 83 for his annual physical examination. Since his last visit he has no new complaints. He continues to feel weakness in his legs and an achy tired pain in his lower back. He and his have sold their home in [place] and one hour [employer] in [place]. He has been back from [place] now for 1 month. He has had [...] Failed Vasectomy Age 50 Rectal Surgery in [place] Dr. Johnson * Hospitalization/Major Diagno stic Procedure:?Denies [...] also had multiple sclerosis. 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 ??Counseling:?Care [...] Sharpe MD Date:?03/31 Generated for Coreen chaudhry/Ash/eTransmitting on:?11/11/2024 12:07 PM EST History and Physical [...] the year COVID-19 Screening Questions Have you had any [...]
--- OUTSIDE RECORDS SUMMARY | 2024-11-11 12:08 | XMS_ITS | Patient Health Record ---
Author Organization Carlos Alberto Sharpe III, MD Address [address] [place] [address] Care Team Providers Care Automation Sales Manager Name Role Phone Carlos Alberto Sharpe Primary [...] ff Reviewed date:11/26/2023 09:39:30 AM Interpretation: Performing Lab:[facility], [address] [place] [phone] Notes/Report: White Blood Count 6.1 4.8-10.8 X10*3/uL [...] NRBC Abs Auto 0.000 0.0-0.012 X10*3/uL Comprehensive Herminie. Panel Fa st Reviewed date:11/26/2023 09:39:30 AM Interpretation: Performing Lab:[facility], [address] [place] [phone] Notes/Report: Sodium 140 135-145 mmol/L Potassium 4.6 3.3-5.1 mmol/L Chloride 105 96-108 mmol/L Carbon Dioxide 25 22-29 mmol/L Anion Gap 15 12-20 Blood Urea Nitrogen 23 9-16 mg/dL Creatinine 1.17 0.5-1.4 mg/dL Estimated Glomerular Filt Rate 59 NOTE: For -Guamanian individuals, multiply the result by 1.210. Chronic [...] Panel Reviewed date:11/26/2023 09:39:30 AM Interpretation: Performing Lab:[address] [phone] Notes/Report: Triglycerides 71 <150 mg/dL Desirable Triglyceride: [...] Random Reviewed date:11/26/2023 09:39:30 AM Interpretation: Performing Lab:[facility], [address] [place] [phone] Notes/Report: Creatinine Urine 76.25 Microalbumin Urine 5.0 Microalbum/Creatinine Ratio Ur 6.5 <30 ug/mg cr Albumin/Creatinine Ratio Reference Ranges: Normal: < 30 ug/mg creatinine Microalbuminuria: 30 - 300 ug/mg creatinine Clinical Albuminuria: > 300 ug/mg creatinine Hemoglobin A1c Reviewed date:11/26/2023 09:39:30 AM Interpretation: Performing Lab:[address] [phone] Notes/Report: Hemoglobin A1c % 7.2 <6.0 % [...] average glucose, using the formula of the I7B-Jvbhsmn Average Glucose study (ADAG), Diabetes Care, Vol.31,#8, Jun. 2007 Complete Blood Count Auto Di ff Reviewed date:04/21/2024 10:55:47 AM Interpretation: Performing Lab:[facility], [address] [place] [phone] Notes/Report: White Blood Count 6.3 4.8-10.8 X10*3/uL [...] X10*3/uL NRBC Abs Auto 0.000 0.0-0.012 X10*3/uL [facility]. Panel Fa Reviewed date:04/21/2024 10:55:47 AM Interpretation: Performing Lab:[facility], [address] [place] [address] Notes/Report: Sodium 138 135-145 mmol/L Potassium 4.7 3.3-5.1 mmol/L Slight Hemoly sis Chloride 106 96-108 mmol/L Carbon Dioxide 23 22-29 mmol/L Anion Gap 14 12-20 Blood Urea Nitrogen 18 9-16 mg/dL Creatinine 1.23 0.5-1.4 mg/dL Estimated Glomerular Filt Rate 56 NOTE: For -Guamanian individuals, multiply the result by 1.210. Chronic [...] Panel Reviewed date:04/21/2024 10:55:47 AM Interpretation: Performing Lab:[facility], [address] [place] [phone] Notes/Report: Triglycerides 92 <150 mg/dL Desirable Triglyceride: [...] Antigen Reviewed date:04/21/2024 10:55:47 AM Interpretation: Performing Lab:[facility], [address] [place] [phone] Notes/Report: Prostate Specific Antigen 1.32 <0.05-4.0 ng/mL PSA methodology: Ernandez Alinity i Chemiluminescent Microparticle Immunoassay (CMIA) Microalbumin, Random Reviewed date:04/21/2024 10:55:47 AM Interpretation: Performing Lab:[facility], [address] [place] [phone] Notes/Report: Creatinine Urine 109.79 Microalbumin Urine < 5.0 Microalbum/Creatinine Ratio Ur TNP <30 ug/mg cr Unable to calculate albumin/creatinine ratio due to low microalbumin or creatinine result. Hemoglobin A1c Reviewed date:04/21/2024 10:55:47 AM Interpretation: Performing Lab:[address] [phone] Notes/Report: Hemoglobin A1c % 7.5 <6.0 % [...] average glucose, using the formula of the E7C-Ydlebot Average Glucose study (ADAG), Diabetes Care, Vol.31,#8, Jun. 2007 Diabetic Eye Exam Reviewed date:06/16/2024 09:25:16 AM Interpretation:undefined Performing Lab: Notes/Report: undefined Complete Blood Count Auto Di ff Reviewed date:08/24/2024 06:34:30 AM Interpretation: Performing Lab:[facility], [address] [place] [phone] Notes/Report: White Blood Count 7.0 4.8-10.8 X10*3/uL [...] NRBC Abs Auto 0.000 0.0-0.012 X10*3/uL Comprehensive Herminie. Panel Fa st Reviewed date:08/24/2024 06:34:30 AM Interpretation: Performing Lab:[facility], [address] [place] [phone] Notes/Report: Sodium 142 135-145 mmol/L Potassium 4.1 3.3-5.1 mmol/L Chloride 108 96-108 mmol/L Carbon Dioxide 26 22-29 mmol/L Anion Gap 12 12-20 Blood Urea Nitrogen 19 9-16 mg/dL Creatinine 1.23 0.5-1.4 mg/dL Estimated Glomerular Filt Rate 56 NOTE: For -Guamanian individuals, multiply the result by 1.210. Chronic [...] Panel Reviewed date:08/24/2024 06:34:30 AM Interpretation: Performing Lab:[address] [phone] Notes/Report: Triglycerides 89 <150 mg/dL Desirable Triglyceride: [...] Random Reviewed date:08/24/2024 06:34:30 AM Interpretation: Performing Lab:[address] [phone] Notes/Report: Creatinine Urine 110.76 Microalbumin Urine 7.0 Microalbum/Creatinine Ratio Ur 6.3 <30 ug/mg cr Albumin/Creatinine Ratio Reference Ranges: Normal: < 30 ug/mg creatinine Microalbuminuria: 30 - 300 ug/mg creatinine Clinical Albuminuria: > 300 ug/mg creatinine Hemoglobin A1c Reviewed date:08/24/2024 06:34:30 AM Interpretation: Performing Lab:[facility], [address] [place] [phone] Notes/Report: Hemoglobin A1c % 7.3 <6.0 % [...] average glucose, using the formula of the U6W-Idfdqgc Average Glucose study (ADAG), Diabetes Care, Vol.31,#8, [...] Problem Status W/U Status Risk Notes Problem 491142013838155 Obesity (BMI 30.0-34.9) (E66.9) Active confirmed His [...] restricted in fat calories and sodium. Problem [id number] Thrombocytopenia (D69.6) Active confirmed His platelets have improved to 1 27,000. He has had no bleeding and he is avoiding aspirin. The value will be observed without treatment. No change in his regimen was needed. Problem [id number] Mixed hyperlipidemia (E78.2) Active confirmed His lipids are currently stable and no change in his regimen was needed. Problem 66249656 Essential hypertension (I10) Active confirmed His blood pressure is controlled at 130/80 and no change in his regimen was needed today. I have recommended aggressive weight loss and sodium restriction. Problem 17055908 Atrial fibrillation, unspecified type (I48.91) Active confirmed He was in atrial fibrillation today with a slow controlled rate. No murmurs were heard. Problem [id number] Benign prostatic hyperplasia, unspecified whether lower urinary tract symptoms present (N40.0) Active confirmed He experiences nocturia once or twice a night depending upon fluid intake. We have discussed modifications in his life so they could reduce this. Problem Diabetic renal disease (781789215) Type 2 diabetes mellitus with diabetic chronic kidney disease, unspecified CKD stage, unspecified whether manager long term care insulin use (E11.22) Active confirmed His hemoglobin A1c is 7.3. He is compliant with his medication. He is trying to consume a healthy diabetic diet and lose weight. No change in his regimen was necessary today. Problem [id number] Arthritis of right knee (M17.11) Active confirmed [...] Provider Diagnosis Carlos Alberto Sharpe III, MD [address] [place] [address] [address] [place], [place] [phone] 11/26/2023 Carlos Alberto Sharpe 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, unspecified CKD stage, unspecified whether custodial insulin use E11.22 ; Essential hypertension I10 ; Mixed hyperlipidemia E78.2 ; Benign prostatic hyperplasia, unspecified whether lower urinary tract symptoms present N40.0 ; Arthritis of right knee M17.11 ; Atrial fibrillation, unspecified type I48.91 ; Obesity (BMI 30.0-34.9) E66.9 and Thrombocytopenia D69.6 Carlos Alberto Sharpe III, MD [address] [place] [address] [place] [phone] 04/27/2024 Carlos Alberto Sharpe 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, unspecified CKD stage, unspecified whether manager long term care insulin use E11.22 ; Essential hypertension I10 ; Benign prostatic hyperplasia, unspecified whether lower urinary tract symptoms present N40.0 ; Mixed hyperlipidemia E78.2 ; Obesity (BMI 30.0-34.9) E66.9 and Thrombocytopenia D69.6 Carlos Alberto Sharpe III, MD [address] [place] [address] [place] [phone] 08/29/2024 Carlos Alberto Sharpe 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, unspecified CKD stage, unspecified whether manager long term care insulin use E11.22 ; Mixed hyperlipidemia E78.2 ; Benign prostatic hyperplasia, unspecified whether lower urinary tract symptoms present N40.0 ; Essential hypertension I10 ; Arthritis of right knee M17.11 ; Atrial fibrillation, unspecified type I48.91 and Thrombocytopenia D69.6 Carlos Alberto Sharpe III, MD [address] [place] [address] [place] [phone] 03/30/2024 Carlos Alberto Sharpe 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, unspecified CKD stage, unspecified whether custodial insulin use E11.22 Carlos Alberto Sharpe III, MD [address] [place] [address] [place] [phone] 10/21/2024 Carlos Alberto Sharpe 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, unspecified CKD stage, unspecified whether manager long term care insulin use E11.22 Assessments Encounter Date Diagnosis (ICD Code) Assessment Notes Treat ment Notes Treatment Clinical Notes 11/26/2023 Essential hypertensi on (ICD-10 - I10) His blood pressure is controlled and no change in his regimen was needed today. I have recommended aggressive weight loss and sodium restriction. 11/26/2023 Type 2 diabetes mellitus with diabetic chronic kidney disease, unspecified CKD stage, unspecified whether custodial insulin use (ICD-10 - E11.22) His hemoglobin [...] kidney disease, unspecified CKD stage, unspecified whether custodial insulin use (ICD-10 - E11.22) His hemoglobin [...] kidney disease, unspecified CKD stage, unspecified whether custodial insulin use (ICD-10 - E11.22) His hemoglobin A1c is 7.3. He is compliant with his medication. He is trying to consume a healthy diabetic diet and lose weight. No change in his regimen was necessary today. 03/30/2024 Type 2 diabetes mellitus with diabetic chronic kidney disease, unspecified CKD stage, unspecified whether manager long term care insulin use (ICD-10 - E11.22) His hemoglobin A1c is 7.2 He is compliant with his medication. He is trying to consume a healthy diabetic diet and lose weight. No change in his regimen was necessary today. 10/21/2024 Type 2 diabetes mellitus with diabetic chronic kidney disease, unspecified CKD stage, unspecified whether manager long term care insulin use (ICD-10 - E11.22) His hemoglobin [...] Provider Name:Carlos Alberto Sharpe, 12/21/2024 11:15:00 AM, [address] [place] [address] [address]ENARD, [place], [phone], Provider Name:Carlos Alberto Sharpe, 04/28/2025 10:30:00 AM, [address] [place] [address] KAL[address] [place], [place], [phone], Insurance Providers Payer Name Payer Address Payer Phone Subscriber Number Group Number Insured Name Patient Relationship to Insured Coverage Start Date Coverage End Date [facility] [address] [place] [phone] [id number] MINA GOMEZ Self - patient is the insured MEDICARE NGS [address] [facility] [place] [phone] [id number] CREVIER, MINA Self - patient is the insured Medical (General) History Medical History History ICD Code essential hypertension adult-onset diabetes mellitus hyperlipidemia osteoarthritis right knee BPH history of cataracts Surgical History Surgery Date(Month/Year) Age 50 Rectal Surgery in [place] Dr. Hue haider Age 30 Failed Vasectomy Age 18 Full upper dentures age 14 upper tooth denture bilateral knee replacentnts 2014 right eye cataract surgery 2018
[2024-11-11 12:33] VITALS: BMI 31.3
[2024-11-11] MEDS: Lactated Ringers 1,000 ML 100 ML IVCONT (12:44)
[2024-11-11 12:52] LABS: Glucose, Whole Blood 134 mg/dL (60-115)
--- NOTE | 2024-11-11 13:11 | MHC.SHP ---
Pre-Procedural Eval Section A - 24 Hr Update-Section A only Date of Service: 11/11/24 The patient is an INPATIENT: No Changes since office visit: Yes Changes in Medication and Yes Patient answered all questions; No Cold of Flu in the past 2 weeks and No New Medical Problems The patient has been examined within 24 hours of the surgical procedure. The History & Physical has been completed within 30 days and I have reviewed it.: Yes Section B - Complete if H&P > 30 days Chief Complaint: Other persistent atrial fibrillation Allergies: Allergies Allergy/AdvReac Type Severity Reaction Status Date / Time amoxicillin Allergy Unknown hives Verified 11/11/24 12:32 levofloxacin [Levaquin] Allergy Unknown Hives Verified 11/11/24 12:32 procaine [From NOVOCAIN] Allergy Unknown UNKNOWN Verified 11/11/24 12:32 shellfish Allergy Unknown anaphylaxis Uncoded 11/11/24 12:32 Plan I have reviewed the history and physical and performed a pertinent physical examination on my patient. No changes have occurred unless specified. Time Spent With Patient Time: Total time managing care of this patient today ____ minutes.
[2024-11-11 13:25] VITALS: BP 126/75; PULSE 80; RESP 18; TEMP 36.7; O2SAT 97
[2024-11-11 14:31] VITALS: BP 112/53; PULSE 74; RESP 14; TEMP 36.6; O2SAT 93
--- NOTE | 2024-11-11 14:31 | ECG_ITS ---
Test Reason : s/p cardioversion Blood Pressure : / mmHG Vent. Rate : 066 BPM Atrial Rate : 000 BPM P-R Int : 000 ms QRS Dur : 084 ms QT Int : 426 ms P-R-T Axes : 000 013 013 degrees QTc Int : 446 ms Normal sinus rhythm with frequent Premature atrial complexes Abnormal ECG When compared with ECG of 07-APR-2019 10:41, Premature atrial complexes are now Present T wave amplitude has decreased in Anterior leads QT has lengthened Referred By: Simba Garner Electronically Signed By:SIMBA GARNER MD
--- NOTE | 2024-11-11 14:33 | HO.CARDIVERS ---
Cardioversion Procedure Note Cardioversion Date of Procedure: 11/11/2024 Ordering Provider: Xander Performing Provider: Ann-Marie Garner Indication for Procedure: Persistent new onset atrial fibrillation Pre-Op Diagnosis: Same Post-Op Diagnosis: NSR Performed with Transesophageal Echo: No History: See my consult note Consent: Verbal and Written consent was obtained from the patient before starting and after confrimimg multaq and OAC use. The patient was made aware of the risk of synchronized cardioversion including benefits and alternatives Procedure: After consent obtained, cardioversion pads were attached in AP configuration and the patient was sedated by the anesthesia team. Once adequate sedation achieved, patient was delivered 200 J of biphasic synchronized energy in AP configuration Complications: None Impression: Successful conversion to NSR Recommendations: 1. 12 lead EKG 2. Continue OAC and Multaq 3. Follow up in office
[2024-11-11 14:35] VITALS: BP 112/55; PULSE 57; RESP 16; O2SAT 96
[2024-11-11 14:40] VITALS: BP 100/53; PULSE 57; RESP 16; O2SAT 95
[2024-11-11 14:45] VITALS: BP 110/48; PULSE 66; RESP 16; O2SAT 96
[2024-11-11 14:58] VITALS: BP 106/56; PULSE 68; RESP 16; O2SAT 95
== END 2024-11-11 15:32 | disposition home or self-care (01) ==
PROVIDERS: PCP Internal Medicine Medical Oncology; Visit Provider Internal Medicine Cardiovascular Disease
PROC: 5A2204Z Restoration of Cardiac Rhythm, Single (ICD-10-PCS; principal; 2024-11-11 14:00)
DX: I48.19 Other persistent atrial fibrillation (principal); Z79.01 Long term (current) use of anticoagulants; I10 Essential (primary) hypertension; E78.5 Hyperlipidemia, unspecified; E11.9 Type 2 diabetes mellitus without complications; Z79.84 Long term (current) use of oral hypoglycemic drugs; Z79.899 Other long term (current) drug therapy; Z88.1 Allergy status to other antibiotic agents
CPT/HCPCS: 82947; 92960; 93005

== ENCOUNTER → 2024-11-11 12:04 | Outpatient (BNV) | payer MEDICARE, SELFPAY | PROVIDERS: PCP Internal Medicine Medical Oncology; Visit Provider Internal Medicine Cardiovascular Disease | DX: I48.91 Unspecified atrial fibrillation (principal) | CPT/HCPCS: 92960; 93010 ==

== ENCOUNTER → 2024-11-24 11:43 | Outpatient (REF) | payer MEDICARE, SELFPAY ==
--- OUTSIDE RECORDS SUMMARY | 2024-11-24 11:46 | XMS_ITS | Patient Health Record ---
Author Organization Carlos Alberto Sharpe III, MD Address [address] [place] [address] Care Team Providers Care Plant Protection Supervisor Name Role Phone Carlos Alberto Sharpe [...] ff Reviewed date:04/21/2024 10:55:47 AM Interpretation: Performing Lab:[facility], [address] [place] [address] Notes/Report: White Blood Count 6.3 4.8-10.8 X10*3/uL [...] NRBC Abs Auto 0.000 0.0-0.012 X10*3/uL [facility] [place]. Panel Fa st Reviewed date:04/21/2024 10:55:47 AM Interpretation: Performing Lab:[facility], [address] [place] [phone] Notes/Report: Sodium 138 135-145 mmol/L Potassium 4.7 3.3-5.1 mmol/L Slight Hemoly sis Chloride 106 96-108 mmol/L Carbon Dioxide 23 22-29 mmol/L Anion Gap 14 12-20 Blood Urea Nitrogen 18 9-16 mg/dL Creatinine 1.23 0.5-1.4 mg/dL Estimated Glomerular Filt Rate 56 NOTE: For -Finnish individuals, multiply the result by 1.210. Chronic [...] Panel Reviewed date:04/21/2024 10:55:47 AM Interpretation: Performing Lab:[address] [address] Notes/Report: Triglycerides 92 <150 mg/dL Desirable Triglyceride: [...] Antigen Reviewed date:04/21/2024 10:55:47 AM Interpretation: Performing Lab:[address] [address] Notes/Report: Prostate Specific Antigen 1.32 <0.05-4.0 ng/mL PSA methodology: Ernandez Alinity i Chemiluminescent Microparticle Immunoassay (CMIA) Microalbumin, Random Reviewed date:04/21/2024 10:55:47 AM Interpretation: Performing Lab:[address] [address] Notes/Report: Creatinine Urine 109.79 Microalbumin Urine < 5.0 Microalbum/Creatinine Ratio Ur TNP <30 ug/mg cr Unable to calculate albumin/creatinine ratio due to low microalbumin or creatinine result. Hemoglobin A1c Reviewed date:04/21/2024 10:55:47 AM Interpretation: Performing Lab:[address] [place] [address] Notes/Report: Hemoglobin A1c % 7.5 <6.0 % [...] average glucose, using the formula of the L7L-Isubbcc Average Glucose study (ADAG), Diabetes Care, Vol.31,#8, Jun. 2007 Diabetic Eye Exam Reviewed date:06/16/2024 09:25:16 AM Interpretation:undefined Performing Lab: Notes/Report: undefined Complete Blood Count Auto Di ff Reviewed date:08/24/2024 06:34:30 AM Interpretation: Performing Lab:[facility], [address] [place] [phone] Notes/Report: White Blood Count 7.0 4.8-10.8 X10*3/uL [...] NRBC Abs Auto 0.000 0.0-0.012 X10*3/uL [facility] [place]. Panel Fa Reviewed date:08/24/2024 06:34:30 AM Interpretation: Performing Lab:[facility], [address] [place] [phone] Notes/Report: Sodium 142 135-145 mmol/L Potassium 4.1 3.3-5.1 mmol/L Chloride 108 96-108 mmol/L Carbon Dioxide 26 22-29 mmol/L Anion Gap 12 12-20 Blood Urea Nitrogen 19 9-16 mg/dL Creatinine 1.23 0.5-1.4 mg/dL Estimated Glomerular Filt Rate 56 NOTE: For -Finnish individuals, multiply the result by 1.210. Chronic [...] Panel Reviewed date:08/24/2024 06:34:30 AM Interpretation: Performing Lab:[facility], [address] [place] [phone] Notes/Report: Triglycerides 89 <150 mg/dL Desirable Triglyceride: [...] Random Reviewed date:08/24/2024 06:34:30 AM Interpretation: Performing Lab:[facility], [address] [place] [address] Notes/Report: Creatinine Urine 110.76 Microalbumin Urine 7.0 Microalbum/Creatinine Ratio Ur 6.3 <30 ug/mg cr Albumin/Creatinine Ratio Reference Ranges: Normal: < 30 ug/mg creatinine Microalbuminuria: 30 - 300 ug/mg creatinine Clinical Albuminuria: > 300 ug/mg creatinine Hemoglobin A1c Reviewed date:08/24/2024 06:34:30 AM Interpretation: Performing Lab:[facility], [address] [place] [phone] Notes/Report: Hemoglobin A1c % 7.3 <6.0 % [...] average glucose, using the formula of the X8J-Onycxrf Average Glucose study (ADAG), Diabetes Care, Vol.31,#8, 2007 Glucose, Whole Blood Reviewed date:11/12/2024 08:50:35 PM Interpretation: Performing Lab:[facility], [address] [place] [phone] Notes/Report: Glucose, Whole Blood 134 60-115 mg/dL METER # : [id number] Reason For Referral No Information Medications Medication SIG (Take, Route, Frequency, Duration) Notes Start Date End Date Status Eliquis 5 MG TAKE 1 TABLET BY CHRISTIE TH TWICE DAILY Oral Active metFORMIN HCl ER 500 MG TAKE 1 TABLET BY MOUTH ONCE DAILY WITH EVENING MEAL Active amLODIPine Besylate 10 MG Take 1 tablet by mouth once daily Active Pravastatin Sodium 40 MG 1 tablet Orally Once a day Active Triamcinolone Acetonide 0.1 % 1 application Externally Twice a day 03/31/2022 Active Lisinopril 40 MG Take 1 tablet by christie th once daily Active Immunizations Vaccine Route Administration Date Status [...] Problem Status W/U Status Risk Notes Problem [id number] Obesity (BMI 30.0-34.9) (E66.9) Active confirmed His [...] restricted in fat calories and sodium. Problem 666378522 Thrombocytopenia (D69.6) Active confirmed His platelets have improved to 1 27,000. He has had no bleeding and he is avoiding aspirin. The value will be observed without treatment. No change in his regimen was needed. Problem 283534403 Mixed hyperlipidemia (E78.2) Active confirmed His lipids are currently stable and no change in his regimen was needed. Problem 28041497 Essential hypertension (I10) Active confirmed His blood pressure is controlled at 130/80 and no change in his regimen was needed today. I have recommended aggressive weight loss and sodium restriction. Problem 12616058 Atrial fibrillation, unspecified type (I48.91) Active confirmed He was in atrial fibrillation today with a slow controlled rate. No murmurs were heard. Problem 983882222 Benign prostatic hyperplasia, unspecified whether lower urinary tract symptoms present (N40.0) Active confirmed He experiences nocturia once or twice a night depending upon fluid intake. We have discussed modifications in his life so they could reduce this. 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 He is compliant with his medication. He is trying to consume a healthy diabetic diet and lose weight. No change in his regimen was necessary today. Problem [id number] Arthritis of right knee (M17.11) Active confirmed He is completing all of the activities of daily life with his bilateral knee replacements. Vital Signs Heart Rate 101 /min 11/24/2024 Temperature 98.0 degrees Fahrenheit 11/24/2024 Blood pressure diastolic 86 mm Hg 11/24/2024 Height 69 in 11/24/2024 Blood pressure systolic 144 mm Hg 11/24/2024 Weight 216 lbs 11/24/2024 BMI 31.89 kg/m2 11/24/2024 Encounters Encounter Location Date Provider Diagnosis Carlos Alberto Sharpe III, MD [address] [place] [address] [place] [address] 11/24/2024 Carlos Alberto Sharpe 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, unspecified CKD stage, unspecified whether skilled nursing insulin use E11.22 and Atrial fibrillation, unspecified type I48.91 Carlos Alberto Sharpe III, MD [address] [place] [address] [place] [address] 11/26/2023 Carlos Alberto Sharpe 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, unspecified CKD stage, unspecified whether skilled nursing insulin use E11.22 ; Essential hypertension I10 ; Mixed hyperlipidemia E78.2 ; Benign prostatic hyperplasia, unspecified whether lower urinary tract symptoms present N40.0 ; Arthritis of right knee M17.11 ; Atrial fibrillation, unspecified type I48.91 ; Obesity (BMI 30.0-34.9) E66.9 and Thrombocytopenia D69.6 Carlos Alberto Sharpe III, MD [address] [place] [address] [place] [address] 04/27/2024 Carlos Alberto Sharpe 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, unspecified CKD stage, unspecified whether skilled nursing insulin use E11.22 ; Essential hypertension I10 ; Benign prostatic hyperplasia, unspecified whether lower urinary tract symptoms present N40.0 ; Mixed hyperlipidemia E78.2 ; Obesity (BMI 30.0-34.9) E66.9 and Thrombocytopenia D69.6 Carlos Alberto Sharpe III, MD [address] [place] [address] [place] [address] 08/29/2024 Carlos Alberto Sharpe 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, unspecified CKD stage, unspecified whether skilled nursing insulin use E11.22 ; Mixed hyperlipidemia E78.2 ; Benign prostatic hyperplasia, unspecified whether lower urinary tract symptoms present N40.0 ; Essential hypertension I10 ; Arthritis of right knee M17.11 ; Atrial fibrillation, unspecified type I48.91 and Thrombocytopenia D69.6 Carlos Alberto Sharpe III, MD [address] [place] [address] [place] [address] 03/30/2024 Carlos Alberto Sharpe 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, unspecified CKD stage, unspecified whether parts counterman insulin use E11.22 Carlos Alberto Sharpe III, MD [address] [place] [address] [place] [address] 10/21/2024 Carlos Alberto Sharpe 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, unspecified CKD stage, unspecified whether parts counterman insulin use E11.22 Assessments Encounter Date Diagnosis (ICD Code) Assessment Notes Treat ment Notes Treatment Clinical Notes 11/24/2024 Type 2 diabetes mellitus with diabetic chronic kidney disease, unspecified CKD stage, unspecified whether parts counterman insulin use (ICD-10 - E11.22) His hemoglobin A1c is 7.3. He is compliant with his medication. He is trying to consume a healthy diabetic diet and lose weight. No change in his regimen was necessary today. 11/26/2023 Essential hypertensi on (ICD-10 - I10) His blood pressure is controlled and no change in his regimen was needed today. I have recommended aggressive weight loss and sodium restriction. 11/26/2023 Type 2 diabetes mellitus with diabetic chronic kidney disease, unspecified CKD stage, unspecified whether skilled nursing insulin use (ICD-10 - E11.22) His hemoglobin [...] kidney disease, unspecified CKD stage, unspecified whether skilled nursing insulin use (ICD-10 - E11.22) His hemoglobin [...] kidney disease, unspecified CKD stage, unspecified whether parts counterman insulin use (ICD-10 - E11.22) His hemoglobin A1c is 7.3. He is compliant with his medication. He is trying to consume a healthy diabetic diet and lose weight. No change in his regimen was necessary today. 03/30/2024 Type 2 diabetes mellitus with diabetic chronic kidney disease, unspecified CKD stage, unspecified whether skilled nursing insulin use (ICD-10 - E11.22) His hemoglobin A1c is 7.2 He is compliant with his medication. He is trying to consume a healthy diabetic diet and lose weight. No change in his regimen was necessary today. 10/21/2024 Type 2 diabetes mellitus with diabetic chronic kidney disease, unspecified CKD stage, unspecified whether parts counterman insulin use (ICD-10 - E11.22) His hemoglobin A1c is 7.3. He is compliant with his medication. He is trying to consume a healthy diabetic diet and lose weight. No change in his regimen was necessary today. 11/24/2024 Atrial fibrillation, unspecified type (ICD-10 - I48.91) 11/26/2023 Mixed hyperlipidemia (ICD-10 - E78.2) The [...] Order Date PROFILE, FASTING (COMPREHENSIVE METABOLI C) 08/26/2023 PROFILE, FASTING (COMPREHENSIVE METABOLI C) 08/29/2024 PROFILE, FASTING (COMPREHENSIVE METABOLI C) 03/25/2021 PROFILE, FASTING (COMPREHENSIVE METABOLI C) 04/02/2020 PROFILE, FASTING (COMPREHENSIVE METABOLI C) 03/31/2022 PROFILE, FASTING (COMPREHENSIVE METABOLI C) 06/27/2021 PROFILE, FASTING (COMPREHENSIVE METABOLI C) 11/26/2023 PROFILE, RANDOM (COMPREHENSIVE METABOLIC ) 11/26/2020 PROFILE, RANDOM (COMPREHENSIVE METABOLIC ) 06/25/2020 HEMOGLOBIN A1C (GLYCOHEMOGLOBIN) 021 HEMOGLOBIN A1C (GLYCOHEMOGLOBIN) 023 HEMOGLOBIN A1C (GLYCOHEMOGLOBIN) 020 HEMOGLOBIN A1C (GLYCOHEMOGLOBIN) 020 HEMOGLOBIN A1C (GLYCOHEMOGLOBIN) 021 HEMOGLOBIN A1C (GLYCOHEMOGLOBIN) 022 LIPID PANEL 03/31/2022 LIPID PANEL 06/27/2021 LIPID PANEL 08/26/2023 LIPID PANEL 11/26/2020 LIPID PANEL 03/25/2021 LIPID PANEL 04/02/2020 PSA, TOTAL 11/26/2023 PSA, TOTAL 08/29/2024 PSA, TOTAL 11/26/2020 MICROALBUMIN, RANDOM 03/31/2022 MICROALBUMIN, RANDOM 06/25/2020 MICROALBUMIN, RANDOM 11/26/2020 CBC w DIFF 11/26/2020 CBC w DIFF 11/26/2023 CBC w DIFF 03/31/2022 CBC w DIFF 06/27/2021 CBC w DIFF 08/26/2023 CBC w DIFF 06/25/2020 CBC w DIFF 03/25/2021 CBC w DIFF 04/02/2020 LIPID TOTAL, FECES 06/25/2020 CBC WITH AUTO DIFF 08/29/2024 Lipid Panel 11/26/2023 Lipid Panel 08/29/2024 Microalbumin, Random 11/26/2023 Microalbumin, Random 08/26/2023 ECG holter monitor 48 hour 04/22/2023 ECG 12 lead EKG 11/24/2024 ECG 12 lead EKG 04/22/2023 Hemoglobin A1c 08/29/2024 Hemoglobin A1c 11/26/2023 Next Appt Details Provider Name:Carlos Alberto Sharpe, 11/28/2024 10:30:00 AM, [address] [facility] [address], [place], [address], Provider Name:Carlos Alberto Sharpe, 12/21/2024 11:15:00 AM, [address] [facility] [address], [place], [address], Provider Name:Carlos Alberto Sharpe, 04/28/2025 10:30:00 AM, [address] [facility] [address], [place], [address], Insurance Providers Payer Name Payer Address Payer Phone Subscriber Number Group Number Insured Name Patient Relationship to Insured Coverage Start Date Coverage End Date [address] [place] [phone] [id number] CREVIER, MINA Self - patient is the insured MEDICARE NGS [address] [place]GGY [place] [phone] [id number] JASON MINA Self - patient is the insured Medical (General) History Medical History History ICD Code essential hypertension adult-onset diabetes mellitus hyperlipidemia osteoarthritis right knee BPH history of cataracts Surgical History Surgery Date(Month/Year) Age 50 Rectal Surgery in [place] Dr. Hue haider Age 30 Failed Vasectomy Age 18 Full upper dentures age 14 upper tooth denture bilateral knee replacentnts 2014 right eye cataract surgery 2019
--- OUTSIDE RECORDS SUMMARY | 2024-11-24 11:46 | XMS_ITS ---
Author Organization Carlos Alberto Sharpe III, MD Address [address] [place] [address] [place] [address] Care Team Providers Care Fuse Cup Expander Name Role Phone Carlos Alberto Sharpe Primary [...] Diagnosis Carlos Alberto Sharpe III, MD [address] [place] [address] [place] [address] 08/29/2024 Carlos Alberto Sharpe 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, unspecified CKD stage, unspecified whether director of group sales insulin use E11.22 ; Mixed hyperlipidemia E78.2 [...] kidney disease, unspecified CKD stage, unspecified whether director of group sales insulin use (ICD-10 - E11.22) His hemoglobin [...] Months, Reason: OV Provider Name:Carlos Alberto Sharpe, 11/28/2024 10:30:00 AM, [address] [place] [address] [address], [place], [address], Provider Name:Carlos Alberto Sharpe, 12/21/2024 11:15:00 AM, [address] [place] [address] [address], [place], [address], Provider Name:Carlos Alberto Sharpe, 04/28/2025 10:30:00 AM, [address] [place] [address] [address], [place], [address], Progress Notes * MINA GOMEZDOB: (84 yo M)Acc No.[id number]:08/29/2024 Progress Notes Patient:?NANCYAMEENA MINA Provider:?Carlos Alberto Sharpe MD :1940???Age:84 Y???Sex:Male Emmett e:08/29/2024 Address:[id number] Subjective: * Chief Complaints: * ???DiabetesHypertensionHyper lipidemiaArthritis right kneeObesityBenign prostatic hypertrophyAtrial fibrillationThrombocytopenia * HPI: ???COVID-19 Screening:?He returns to the office for medical management.? Last March when he was in [place] he developed benign positional vertigo primarily with [...] Failed Vasectomy Age 50 Rectal Surgery in [place] Dr. Johnson * Hospitalization/Major Diagno stic Procedure:?Denies [...] had multiple sclerosis. 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 * ???Past Orders: Lab:[facility]. D[facility] * Collection Date 08/22/2024 04/20/2024 [...] kidney disease, unspecified CKD stage, unspecified whether director of group sales insulin use - E11.22 (Primary)???Notes :His hemoglobin [...] Alberto Sharpe MD Date:?08/02 Generated for Printi ng/Fajoseg/eTransmitting on:?11/24/2024 11:46 AM EST History and Physical Notes * HPI (History of Present Illness) Category Sub-Category Detail Notes COVID-19 Screening Questions Have you had any new onset fever, chills, cough, congestion, sore throat, shortness of breath, muscle aches?: No Have you been exposed to the virus withi n the last 10 days?: No Have you travelled internationally in [facility] last 10 days?: No Have you been [...]
--- OUTSIDE RECORDS SUMMARY | 2024-11-24 11:46 | XMS_ITS ---
Author Organization Carlos Alberto Sharpe III, MD Address [address] [place] [address] [place] [address] Care Team Providers Care Glaze Mixer Name Role Phone Carlos Alberto Sharpe Primary Care Provider [phone] REASON FOR VISIT Rx Request Medications Medication SIG (Take, Route, Frequency, Duration) Notes Start Date End Date Status Triamcinolone Acetonide 0.1 % 1 application Externally Twice a day for 30 days 03/31/2022 Active Social History Sex Assigned At : Social History Observation Description Sex Assigned At Male Encounters Encounter Location Date Provider Diagnosis Carlos Alberto Sharpe III, MD [address] [place] [address] [place] [address] 10/21/2024 Carlos Alberto Sharpe Type 2 diabetes mellitus with diabetic chronic kidney disease, unspecified CKD stage, unspecified whether roasterman insulin use E11.22 Assessments Encounter Date Diagnosis (ICD Code) Assessment Notes Treatment Notes Treatment Clinical Notes 10/21/2024 Type 2 diabetes mellitus with diabetic chronic kidney disease, unspecified CKD stage, unspecified whether roasterman insulin use (ICD-10 - E11.22) His hemoglobin [...] Name:Carlos Alberto Sharpe, 11/28/2024 10:30:00 AM, [address] [place] [address] [place], [address], Provider Name:Carlos Alberto Sharpe, 12/21/2024 11:15:00 AM, [address] [facility] [address], [place], [address], Provider Name:Carlos Alberto Sharpe, 04/28/2025 10:30:00 AM, [address] [facility] [address], [place], [address], Progress Notes * HERBER GOMEZDOB: [birth year] (84 yo M)Acc No.[id number]:10/21/2024 Patient:?JASON HERBER :1940???Age:84 Y???Sex:Male Address:[address] [place], [place] [address], [address] * Refills? Refill Triamcinolone Acetonide Cream, 0.1 %, Externally, 60 Gram, 1 application, Twice a day, 30 days, Refills=5 * true * Date:? Generated for Coreen chaudhry/Ash/Elbaransmitting on:?11/24/2024 11:45 AM EST
--- NOTE | 2024-11-24 11:48 | ECG_ITS ---
Test Reason : IR8.91 ATRIAL FIBRILLATION Blood Pressure : / mmHG Vent. Rate : 069 BPM Atrial Rate : 000 BPM P-R Int : 000 ms QRS Dur : 082 ms QT Int : 352 ms P-R-T Axes : 000 013 024 degrees QTc Int : 377 ms Normal sinus rhythm with frequent Premature atrial complexes Abnormal ECG When compared with ECG of 11-NOV-2024 14:50, No significant changes seen QT has shortened Referred By: Carlos Alberto Sharpe Electronically Signed By:YAN IRELAND MD
== END ==
LOC: HO.CARD 11:43
PROVIDERS: PCP Internal Medicine Medical Oncology; Visit Provider Internal Medicine Medical Oncology
DX: I48.91 Unspecified atrial fibrillation (principal)
CPT/HCPCS: 93005

== ENCOUNTER → 2024-11-24 11:48 | Outpatient (BNV) | payer MEDICARE, SELFPAY | PROVIDERS: PCP Internal Medicine Medical Oncology; Visit Provider Internal Medicine Cardiovascular Disease | DX: I48.91 Unspecified atrial fibrillation (principal); R94.31 Abnormal electrocardiogram [ECG] [EKG] | CPT/HCPCS: 93010 ==

== ENCOUNTER 2025-02-13 12:44 | Outpatient (AMB) | payer MEDICARE, SELFPAY ==
--- NOTE | 2025-02-13 12:50 | MHC.OFFVIS ---
Vital Signs 02/13/25 12:51 Height 5 ft 10 in Weight 211 lb 10.3 oz BMI 30.4 BP 120/80 Blood Pressure Location Lt brachial Position Sitting Pulse 79 Intake Visit Reasons: I48.91 follow up Intake Note: Follow-up with ekg feeling good ? about watchman Parking Cashier Required: No Allergies amoxicillin Allergy (Unknown, Verified 11/11/24 12:32) hives levofloxacin [Levaquin] Allergy (Unknown, Verified 11/11/24 12:32) Hives procaine [From NOVOCAIN] Allergy (Unknown, Verified 11/11/24 12:32) UNKNOWN shellfish Allergy (Unknown, Uncoded 11/11/24 12:32) anaphylaxis Medication List - Last Reconciled 02/13/25 by Simba Garner MD amlodipine 10 mg PO DAILY apixaban (Eliquis) 5 mg PO BID dronedarone (Multaq) 400 mg PO BID lisinopril 40 mg PO DAILY metformin ER 500 mg PO QPM pravastatin 40 mg PO DAILY triamcinolone acetonide 0.1% 1 appl topical BID-TID HPI Comments Details: Herber comes for follow-up. Overall he feels well. He has been taking his oral anticoagulant therapy without any issues. Also taking dronedarone. He was intermittent episodes of irregular heartbeat atrial fibrillation. He denies any new changes in his symptoms. Also says he does not feel really any different when he is in normal rhythm was his atrial fibrillation. Denies any orthopnea, PND, leg edema. Gets occasional orthostatic lightheadedness especially in gnosticism when he gets up suddenly. No syncopal episodes. No bleeding issues or neurologic events. [facility] Medical History (Updated 02/13/25 @ 13:24 by Simba Garner MD) Persistent atrial fibrillation Hyperlipidemia Diabetes mellitus HTN (hypertension) Surgical History Hx of bilateral cataract extraction History of colon resection Hx of colonoscopy Social History Are you a primary home health care coordinator to a significant other at home: No Do you presently have visiting nurse or other home services: No Alcohol intake: current Alcohol intake frequency: holidays/special occasions only Patient Tobacco Use Status: Never used Tobacco Review of Systems Const Denies chills, Denies fatigue, Denies fever(s), Denies frequent falls, Denies weakness, Denies weight gain and Denies weight loss ENT Denies dizziness Card Denies chest pain, Denies leg edema, Denies lightheadedness, Denies palpitations, Denies dyspnea, Denies dyspnea on exertion, Denies orthopnea and Denies other (loss of consciousness) Resp Denies cough, Denies dyspnea and Denies dyspnea on exertion GI Denies hematochezia and Denies change in stool character Musc Denies abnormal gait, Denies muscle weakness, Denies numbness, Denies radiating pain into limb and Denies tingling Neuro Denies abnormal gait, Denies dizziness, Denies frequent falls, Denies numbness, Denies tingling and Denies weakness Endo Denies fatigue and Denies palpitations Physical Exam Vital Signs: Last Vital Signs Pulse 79 02/13/25 12:51 BP 120/80 02/13/25 12:51 BMI result Body Mass Index 30.4 Const General: cooperative, comfortable, no acute distress, well developed, alert, awake, Physically active and well groomed Nutritional Appearance: well nourished and overweight Orientation/consciousness: patient oriented x3 Limitations: no limitations HEENT Head: Yes normocephalic and Yes atraumatic Neck Neck: Yes trachea midline, Yes supple and Yes no JVD Resp Effort & Inspection: normal respiratory effort Auscultation: clear to auscultation bilaterally Cardio Jugular venous distension: no JVD Palpation: normal PMI Rate: regular rate Rhythm: regular rhythm Heart sounds: S1 normal heart sound present, S2 normal heart sound present, no click, no gallops, no murmurs and no rubs GI Auscultation: normal bowel sounds Skin General skin exam: no rashes or lesions noted Neuro General: patient oriented x3 and no focal motor deficits Extrem General: Yes no clubbing, cyanosis or edema Office Procedures EKG Details: EKG shows normal sinus rhythm with sinus arrhythmia with septal QS pattern 26040-[id number], Complete Assessment & Plan Assessment & Plan (1) Paroxysmal atrial fibrillation: Code(s): I48.0 - Paroxysmal atrial fibrillation Category: Medical Plan: Paroxysmal atrial fibrillation currently maintaining rhythm on Multaq therapy. He was not notice any significant difference in his symptoms on Multaq and with rhythm control. If he was failure to maintain rhythm and has no new symptoms will pursue rate control approach. Continue Multaq for now to maintain rhythm as longest possible. Continue full oral anticoagulation, currently on Eliquis 5 mg b.i.d.. Semi annual renal function test should be discussed. We did discuss Watchman device and its indication, currently does not qualify for the same. (2) HTN (hypertension): Code(s): I10 - Essential (primary) hypertension Category: Medical Plan: Longstanding hypertension which is currently well optimized advised to monitor blood pressure at home and maintain a log. Continue current antihypertensive therapy. Importance of good blood pressure control was discussed. Low-salt diet was discussed. Does have some orthostatic dizziness advised to increase his fluid intake. He understands agrees. Orthostatic precautions were discussed. Follow up in the clinic in 3 months for EKG in 6 months with me. Thank you for allowing me to partake in his care Coding Level of Care Code Est Pt Level 4 (23354) Complex EM visit Add On G2211 Diagnoses Paroxysmal atrial fibrillation I48.0 HTN (hypertension) I10 CPT Codes EKG - CPT: 84598-[id number], Complete ([id number])
[2025-02-13 12:51] VITALS: BP 120/80; PULSE 79; BMI 30.4
--- OUTSIDE RECORDS SUMMARY | 2025-02-13 14:46 | XMS_ITS ---
Author Organization Carlos Alberto Sharpe III, MD Address [address] [place] [address] [place] [address] Care Team Providers Care Global Analytics Head Name Role Phone Carlos Alberto Sharpe Primary Care Provider Medications Medication SIG (Take, Route, Frequency, Duration) Notes Start Date End Date Status Clindamycin HCl 300 MG 2 capsules Orally in am before dental work for 1 days 12/12/2024 12/24/2024 Active Social History Sex Assigned At : Social History Observation Description Sex Assigned At Male Encounters Encounter Location Date Provider Diagnosis Carlos Alberto Sharpe III, MD [address] [place] [address] [place] [address] 12/12/2024 Carlos Alberto Sharpe Plan Of Treatment Medication Medication Name Sig Start Date Stop Date Notes Clindamycin HCl 300 MG 2 capsules Orally in am before dental work for 1 days 12/12/2024 12/24/2024 Next Appt Details Provider Name:Carlos Alberto Sharpe, 04/28/2025 10:30:00 AM, [address] [place] [address] [address] [facility] [facility], [address], Progress Notes * HERBER GOMEZDOB: [birth year] (84 yo M)Acc No.[id number]:12/12/2024 Patient:?HERBER GOMEZ :1940???Age:84 Y???Sex:Male [address] [facility] [place], [address] * Refills? Start Clindamycin HCl Capsule, 300 MG, Orally, 2, 2 capsules, in am before dental work, 1 days, Refills=11 * true * Date:? Generated for Coreen chaudhry/Ash/Arelis on:?02/13/2025 02:46 PM EDT
--- OUTSIDE RECORDS SUMMARY | 2025-02-13 14:46 | XMS_ITS ---
Author Organization Carlos Alberto Sharpe III, MD Address [address] [place] [address] [place] [address] Care Team Providers Care Art Handler Name Role Phone Carlos Alberto Sharpe Primary Care Provider REASON FOR VISIT HCC Risk Codes Social History Sex Assigned At : Social History Observation Description Sex Assigned At Male Encounters Encounter Location Date Provider Diagnosis Carlos Alberto Sharpe III, MD [address] [place] [address] [address] [facility] [place] [address] 02/13/2025 Carlos Alberto Sharpe Plan Of Treatment Next Appt Details Provider Name:Carlos Alberto Sharpe, 04/28/2025 10:30:00 AM, [address] [place] [address] [place], [address], Progress Notes * HERBER GOMEZDOB: [birth year] (84 yo M)Acc No.[id number]:02/13/2025 Patient:?HERBER GOMEZ :1940???Age:84 Y???Sex:Male Address:[place], [address] * * Date:?
--- OUTSIDE RECORDS SUMMARY | 2025-02-13 14:46 | XMS_ITS | Clinical Summary ---
Author Organization [facility] Address [address] [place] [address] Care Team Providers Care Band Instrument Maker Name Role Phone Unavailable Primary Care Provider Unavailabl e Social History Tobacco Use Types Packs/Day Years Used Date Smoking Tobacco: Never Assessed Sex and Gender Information Value Date Recorded Sex Assigned at Not on file Legal Sex Male 2:26 PM EST Gender Identity Not on file Sexual Orientation Not on file Plan of Treatment Health Maintenance Due Date Last Done Comments DTaP,Tdap,and Td Vaccines (1 - Tdap) 1957 Pneumococcal Vaccine: 50+ Ye ars (1 of 1 - PCV) 1988 Zoster Vaccines (1 of 2) 1988 RSV Immunization Patients 60 + Years Old (1 - 1-dose 75+ series) 2013 COVID-19 Vaccine ( - 2023-2 5 season) 2024 Influenza Vaccine (#1) 2024 HIB Vaccines Aged Out No longer eligi ble based on patient's age to complete this topic HPV Vaccines Aged Out No longer eligi ble based on patient's age to complete this topic Hepatitis A Vaccines Aged Out No long er eligible based on patient's age to complete this topic Hepatitis B Vaccines Aged Out No long er eligible based on patient's age to complete this topic IPV Vaccines Aged Out No longer eligi ble based on patient's age to complete this topic MMR Vaccines Aged Out No longer eligi ble based on patient's age to complete this topic Meningococcal ACWY Vaccine Aged Out N o longer eligible based on patient's age to complete this topic Meningococcal B Vacine Aged Out No lo nger eligible based on patient's age to complete this topic RSV Immunization Patients Un mariam 20 months Aged Out No longer eligible b ased on patient's age to complete this topic Varicella Vaccines Aged Out No longer eligible based on patient's age to complete this topic
--- OUTSIDE RECORDS SUMMARY | 2025-02-13 14:46 | XMS_ITS | Clinical Summary ---
Author Organization [facility] Address [address] [place] [address] Care Team Providers Care Wire Spring Relay Adjuster Name Role Phone Karrie Steve MD Primary Care Provider Unavailabl e Social History Tobacco Use Types Packs/Day Years Used Date Smoking Tobacco: Never Assessed Sex and Gender Information Value Date Recorded Sex Assigned at Not on file Legal Sex Male 7:36 AM EDT Gender Identity Not on file Sexual Orientation Not on file Plan of Treatment Not on file Care Teams Wire Spring Relay Adjuster Relationship Specialty Start Date End Date Karrie Steve MD [address] [place] [address] PCP - General Internal Medicine 07/07/18
--- OUTSIDE RECORDS SUMMARY | 2025-02-13 14:46 | XMS_ITS ---
Author Organization Carlos Alberto Sharpe III, MD Address [address] [place] [address] [place] [address] Care Team Providers Care Wild Life Photographer Name Role Phone Carlos Alberto Sharpe Primary [...] Problem Status W/U Status Risk Notes Problem [id number] Anticoagulated (Z79.01) Active confirmed Vital Signs Heart Rate 90.0 /min 12/21/2024 Height 69 in 12/21/2024 Weight 216 lbs 12/21/2024 BMI 31.89 kg/m2 12/21/2024 Encounters Encounter Location Date Provider Diagnosis Carlos Alberto Sharpe III, MD [address] [place] [address] [address] [place], [place] [address] 12/21/2024 Carlos Alberto Sharpe 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, unspecified CKD stage, unspecified whether group home insulin use E11.22 ; Essential hypertension [...] kidney disease, unspecified CKD stage, unspecified whether manugrapher insulin use (ICD-10 - E11.22) His hemoglobin [...] 2 Months, Reason: ov Provider Name:Carlos Alberto Sharpe, 04/28/2025 10:30:00 AM, [address] [place] [address] [address], [address], [place], [address], Progress Notes * MINA GOMEZDOB: [birth year] (84 yo M)Acc No.[id number]:12/21/2024 Patient:?MINA GOMEZ Provider:?Carlos Alberto Sharpe MD :1940???Age:84 Y???Sex:Male Emmett e:12/21/2024 Address:[address] [place], [place] [address], [id number] Subjective: * Chief Complaints: * ???Persistent atrial fibrill ationDiabetesHypertensionHyperlipidemiaBenign prostatic hypertrophyObesity * HPI: ???:?Telehealth?Location of provider rendering services:?{...} [address] [place] [address] [address] [facility] [address] ?Location of patient:?address listed in demographics for today's visit ?Patient identification confirmed using:?Name, ?Telehealth method:?Telephone only. Patient not visible to care provider. ?Consent:?Patient verbally consented to treatment, Patient verbally consented to billing insurance company, Patient informed of any privacy concerns related to method of visit ?Total time spent with patient (mins)?22 ? The patient, an 84-year-old male, reported feeling [...] it. He has an appointment with a global chief creative officer in a few weeks. * ROS:?General/Constitutional:?pain?only normal aches and pains.?Chills?denies.?Fatigue?admits.?Fever?denies.?ENT:?Decreased hearing?in both ears.?Respiratory:?Cough?denies.?Cardiovascular:?Chest pain with exertion?denies.?Dyspnea on exertion?denies.?Shortness of breath?denies.?Gastrointestinal:?Constipation?occasional.?Decreased appetite?denies.?Diarrhea?denies.?Heartburn?denies.?Nausea?denies.?Rectal bleeding?denies.?Vomiting?denies.?Hematology:?bruising?denies.?petechiae?denies.?Swollen glands?none have been noted.?Genitourinary:?Frequent urination?once a night.?Musculoskeletal:?Muscle aches?denies.?Painful joints?denies.?Sciatica?denies.?Weakness?denies.?Skin:?Itching?denies.?Rash?denies.?Skin lesion(s)?denies.?Neurologic:?Difficulty speaking?denies.?Dizziness?denies.?Headache?denies.?Low back pain?denies.?Psychiatric:?Depressed mood?denies.? * Medical History:? * Surgical History:?right eye cataract surgery 2019bilateral knee replacentnts 2015age 14 upper tooth denture Age 18 Full upper dentures Age 30 Failed Vasectomy Age 50 Rectal Surgery in [place] Dr. Johnson No history * Hospitalization/Major Diagno stic Procedure:?No history * Family History:?Father: dece ased 82 yrs, diabetes,chf, etoh, smoker, diagnosed with CVD, DM, HTN.?Mother: 66 yrs, quadrplegic since fall, baltazar, [...] had multiple sclerosis. 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 His 2 children and 4 grandsons are healthy. * Medications:?TakingTriamcino lone Acetonide 0.1 % Cream 1 application Externally [...] Allergies:?Amoxicillinno[All ergies Verified] Objective: * Vitals:?Ht: 69, Wt:216, BMI: 31.89, HR:90.0, Ht-cm: 175.26, Wt-k.98. * ???Past Orders: ???Lab:Glucose, Whole Blood (Order Date - 11/11/2024) (Collection Date & Time - 11/11/2024 12:42 PM) ? Value Reference Range ?Glucose, Whole Blood 134 H 60-115 - mg/dL Assessment: * Assessment: 1.?Type 2 diabetes mellitus with diabetic chronic kidney disease, unspecified CKD stage, unspecified whether group home insulin use - E11.22 (Primary)???Notes :His hemoglobin A1c was 7.3. He is compliant with his medication. He is trying to consume a healthy diabetic diet and lose weight. No change in his regimen was necessary today.???2.?Essential hypertension - I10???Notes :His blood pressure was controlled at 134/80 and no change in his regimen was needed today. I have recommended aggressive weight loss and sodium restriction.???3.?Mixed hyperlipidemia - E78.2???Notes :His lipids have been? currently stable and no change in his regimen was needed.A fasting lipid profile has been ordered as part of a comprehensive database prior to his next visit.???4.?Benign prostatic hyperplasia, unspecified whether lower urinary tract symptoms present - N40.0???Notes :He experiences nocturia once or twice a night depending upon fluid intake. We have discussed modifications in his life so they could reduce this.???5.?Obesity (BMI 30.0-34.9) - E66.9???Notes :His weight is stable with a body [...] a diet restricted in fat calories and sodium.???6.?Thrombocytopenia - D69.6???Notes :His platelets wereto 1 27,000. He has had no bleeding and he is avoiding aspirin. The value will be observed without treatment. No change in his regimen was needed.???7.?Arthritis of right knee - M17.11???Notes :He is completing all of the activities of daily life with his bilateral knee replacements.??? Plan: * Treatment: 2.?Others? Continue Clindamycin HCl Capsule, 300 MG, 2 capsules, Orally, in am before dental work;?Continue metFORMIN HCl ER Tablet Extended Release 24 Hour, 500 MG, TAKE 1 TABLET BY MOUTH ONCE DAILY WITH EVENING MEAL;?Continue amLODIPine Besylate Tablet, 10 MG, Take 1 tablet by mouth once daily.?? * Procedure Codes:? * Preventive Medicine:? ??Counseling:?Care goal follow-up plan:?Counseling for abnormal BMI given?Yes ?Above Normal BMI Follow-up?Dietary management education, guidance, and counseling, Dietary needs education, Exercise promotion: strength training ??DM Care Plan:?Patient Lifestyle Goals?Patient wants to be able to manage diabetes without too much effort.?Treatment Goals?HbA1C < 7.0, Blood Sugars less than < 115.?Barriers?no barriers.?Self-Managment Goals?Work on weight loss, with a goal of losing 1 lb per week, Stop drinking juice and/or soda, replace with more water.? * Follow Up:?2 Months (Reason: ov) * Images: * Sign off status: Completed true * Provider:?Carlos Alberto Sharpe MD Date:?12/01 Generated for Coreen chaudhry/Ash/eTransmitting on:?02/13/2025 02:46 PM EDT History and Physical Notes * HPI (History of Present Illness) Category Sub-Category Detail Notes Telehealth Location of [facility] rendering services:: {...} [address] [place] [id number] Location of patient:: address listed in demographics [...]
--- OUTSIDE RECORDS SUMMARY | 2025-02-13 14:47 | XMS_ITS | Patient Health Record ---
Author Organization Carlos Alberto Sharpe III, MD Address [address] [place] [address] Care Team Providers Care Wallet Assembler Name Role Phone Carlos Alberto Sharpe Primary [...] ff Reviewed date:04/21/2024 10:55:47 AM Interpretation: Performing Lab:[facility], [address] [place] [phone] Notes/Report: White Blood Count 6.3 4.8-10.8 X10*3/uL [...] NRBC Abs Auto 0.000 0.0-0.012 X10*3/uL Comprehensive [place]. Panel Fa st Reviewed date:04/21/2024 10:55:47 AM Interpretation: Performing Lab:[facility], [address] [place] [phone] Notes/Report: Sodium 138 135-145 mmol/L Potassium 4.7 3.3-5.1 mmol/L Slight Hemoly sis Chloride 106 96-108 mmol/L Carbon Dioxide 23 22-29 mmol/L Anion Gap 14 12-20 Blood Urea Nitrogen 18 9-16 mg/dL Creatinine 1.23 0.5-1.4 mg/dL Estimated Glomerular Filt Rate 56 NOTE: For -Libyan individuals, multiply the result by 1.210. Chronic [...] Panel Reviewed date:04/21/2024 10:55:47 AM Interpretation: Performing Lab:[address] [phone] Notes/Report: Triglycerides 92 <150 mg/dL Desirable Triglyceride: [...] Antigen Reviewed date:04/21/2024 10:55:47 AM Interpretation: Performing Lab:[address] [phone] Notes/Report: Prostate Specific Antigen 1.32 <0.05-4.0 ng/mL PSA methodology: Ernandez Alinity i Chemiluminescent Microparticle Immunoassay (CMIA) Microalbumin, Random Reviewed date:04/21/2024 10:55:47 AM Interpretation: Performing Lab:[address] [address] Notes/Report: Creatinine Urine 109.79 Microalbumin Urine < 5.0 Microalbum/Creatinine Ratio Ur TNP <30 ug/mg cr Unable to calculate albumin/creatinine ratio due to low microalbumin or creatinine result. Hemoglobin A1c Reviewed date:04/21/2024 10:55:47 AM Interpretation: Performing Lab:[address] [place] [address] Notes/Report: Hemoglobin A1c % 7.5 <6.0 % [...] average glucose, using the formula of the T8H-Wdgdjih Average Glucose study (ADAG), Diabetes Care, Vol.31,#8, Jun. 2007 Diabetic Eye Exam Reviewed date:06/16/2024 09:25:16 AM Interpretation:undefined Performing Lab: Notes/Report: undefined Complete Blood Count Auto Di ff Reviewed date:08/24/2024 06:34:30 AM Interpretation: Performing Lab:[facility], [address] [place] [phone] Notes/Report: White Blood Count 7.0 4.8-10.8 X10*3/uL [...] NRBC Abs Auto 0.000 0.0-0.012 X10*3/uL Comprehensive [place]. Panel Fa Reviewed date:08/24/2024 06:34:30 AM Interpretation: Performing Lab:[facility], [address] [place] [phone] Notes/Report: Sodium 142 135-145 mmol/L Potassium 4.1 3.3-5.1 mmol/L Chloride 108 96-108 mmol/L Carbon Dioxide 26 22-29 mmol/L Anion Gap 12 12-20 Blood Urea Nitrogen 19 9-16 mg/dL Creatinine 1.23 0.5-1.4 mg/dL Estimated Glomerular Filt Rate 56 NOTE: For -Libyan individuals, multiply the result by 1.210. Chronic [...] Panel Reviewed date:08/24/2024 06:34:30 AM Interpretation: Performing Lab:[facility], [address] [place] [phone] Notes/Report: Triglycerides 89 <150 mg/dL Desirable Triglyceride: [...] Random Reviewed date:08/24/2024 06:34:30 AM Interpretation: Performing Lab:[facility], [address] [place] [phone] Notes/Report: Creatinine Urine 110.76 Microalbumin Urine 7.0 Microalbum/Creatinine Ratio Ur 6.3 <30 ug/mg cr Albumin/Creatinine Ratio Reference Ranges: Normal: < 30 ug/mg creatinine Microalbuminuria: 30 - 300 ug/mg creatinine Clinical Albuminuria: > 300 ug/mg creatinine Hemoglobin A1c Reviewed date:08/24/2024 06:34:30 AM Interpretation: Performing Lab:[facility], [address] [place] [phone] Notes/Report: Hemoglobin A1c % 7.3 <6.0 % [...] average glucose, using the formula of the S6E-Ogzgtxe Average Glucose study (ADAG), Diabetes Care, Vol.31,#8, 2007 Glucose, Whole Blood Reviewed date:11/12/2024 08:50:35 PM Interpretation: Performing Lab:[facility], [address] [place] [phone] Notes/Report: Glucose, Whole Blood 134 60-115 mg/dL METER # : [id number] Reason For Referral No Information Medications Medication [...] tablet by christie th once daily Active Triamcinolone Acetonide 0.1 % 1 application Externally Twice a day 03/31/2022 Active Clindamycin HCl 300 MG 2 capsules Orally in am before dental work 12/12/2024 Active Eliquis 5 MG TAKE 1 TABLET BY CHRISTIE TH TWICE DAILY Oral Active Immunizations Vaccine Route Administration Date Status [...] Problem Status W/U Status Risk Notes Problem [id number] Obesity (BMI 30.0-34.9) (E66.9) Active confirmed His [...] restricted in fat calories and sodium. Problem [id number] Thrombocytopenia (D69.6) Active confirmed His platelets wereto 1 27,000. He has had no bleeding and he is avoiding aspirin. The value will be observed without treatment. No change in his regimen was needed. Problem 100144666 Mixed hyperlipidemia (E78.2) Active confirmed His lipids have been currently stable and no change in his regimen was needed.A fasting lipid profile has been ordered as part of a comprehensive database prior to his next visit. Problem 198084217 Anticoagulated (Z79.01) Active confirmed Problem 36414980 Essential hypertension (I10) Active confirmed His blood pressure was controlled at 134/80 and no change in his regimen was needed today. I have recommended aggressive weight loss and sodium restriction. Problem [id number] Atrial fibrillation, unspecified type (I48.91) Active confirmed His heart rate was irrregular today. He was sent for an EKG to determine his rhythm. He was instructed to resume the Multaq and continue the anticoagulatio n. His heart rate is well controlled. Problem 983003674 Benign prostatic hyperplasia, unspecified whether lower urinary tract symptoms present (N40.0) Active confirmed He experiences nocturia once or twice a night depending upon fluid intake. We have discussed modifications in his life so they could reduce this. 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 He is compliant with his medication. He is trying to consume a healthy diabetic diet and lose weight. No change in his regimen was necessary today. Problem [id number] Arthritis of right knee (M17.11) Active confirmed He is completing all of the activities of daily life with his bilateral knee replacements. Vital Signs Heart Rate 90.0 /min 12/21/2024 Temperature 98.0 degrees Fahrenheit 11/24/2024 Blood pressure diastolic 80 mm Hg 11/24/2024 Height 69 in 12/21/2024 Blood pressure systolic 134 mm Hg 11/24/2024 Weight 216 lbs 12/21/2024 BMI 31.89 kg/m2 12/21/2024 Encounters Encounter Location Date Provider Diagnosis Carlos Alberto Sharpe III, MD [address] [place] [address] [address] [place], [place] [phone] 04/27/2024 Carlos Alberto Sharpe 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, unspecified CKD stage, unspecified whether care home insulin use E11.22 ; Essential hypertension I10 ; Benign prostatic hyperplasia, unspecified whether lower urinary tract symptoms present N40.0 ; Mixed hyperlipidemia E78.2 ; Obesity (BMI 30.0-34.9) E66.9 and Thrombocytopenia D69.6 Carlos Alberto Sharpe III, MD [address] [place] [address] [place] [address] 08/29/2024 Carlos Alberto Sharpe 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, unspecified CKD stage, unspecified whether care home insulin use E11.22 ; Mixed hyperlipidemia E78.2 ; Benign prostatic hyperplasia, unspecified whether lower urinary tract symptoms present N40.0 ; Essential hypertension I10 ; Arthritis of right knee M17.11 ; Atrial fibrillation, unspecified type I48.91 and Thrombocytopenia D69.6 Carlos Alberto Sharpe III, MD [address] [place] [address] [place] [address] 11/24/2024 Carlos Alberto Sharpe 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, unspecified CKD stage, unspecified whether care home insulin use E11.22 ; Atrial fibrillation, unspecified type I48.91 ; Essential hypertension I10 ; Mixed hyperlipidemia E78.2 ; Benign prostatic hyperplasia, unspecified whether lower urinary tract symptoms present N40.0 and Obesity (BMI 30.0-34.9) E66.9 Carlos Alberto Sharpe III, MD [address] [place] [address] [place] [address] 12/21/2024 Carlos Alberto Sharpe 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, unspecified CKD stage, unspecified whether long term acute care registered nurse insulin use E11.22 ; Essential hypertension I10 ; Mixed hyperlipidemia E78.2 ; Benign prostatic hyperplasia, unspecified whether lower urinary tract symptoms present N40.0 ; Obesity (BMI 30.0-34.9) E66.9 ; Thrombocytopenia D69.6 and Arthritis of right knee M17.11 Carlos Alberto Sharpe III, MD [address] [place] [address] [place] [phone] 02/13/2025 Carlos Alberto Sharpe III, MD [address] [place] [address] [place] [phone] 03/30/2024 Carlos Alberto Sharpe 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, unspecified CKD stage, unspecified whether long term acute care registered nurse insulin use E11.22 Carlos Alberto Sharpe III, MD [address] [place] [address] [place] [address] 10/21/2024 Carlos Alberto Sharpe 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, unspecified CKD stage, unspecified whether care home insulin use E11.22 Carlos Alberto Sharpe III, MD [address] [place] [address] [address] [place] [address] 12/06/2024 Carlos Alberto Sharpe III, MD [address] [place] [address] [address] [place] [address] 12/12/2024 Carlos Alberto Sharpe III, MD [address] [place] [address] [address] [place] [address] 12/12/2024 Carlos Alberto Sharpe Assessments Encounter Date Diagnosis (ICD Code) Assessment Notes Treat ment Notes Treatment Clinical Notes 04/27/2024 Essential hypertensi on (ICD-10 - I10) His blood pressure is controlled at 138/85and no change in his regimen was needed today. I have recommended aggressive weight loss and sodium restriction. 04/27/2024 Type 2 diabetes mellitus with diabetic chronic kidney disease, unspecified CKD stage, unspecified whether long term acute care registered nurse insulin use (ICD-10 - E11.22) His hemoglobin [...] kidney disease, unspecified CKD stage, unspecified whether long term acute care registered nurse insulin use (ICD-10 - E11.22) His hemoglobin A1c is 7.3. He is compliant with his medication. He is trying to consume a healthy diabetic diet and lose weight. No change in his regimen was necessary today. 11/24/2024 Atrial fibrillation, unspecified type (ICD-10 - I48.91) His heart rate was irrregular today. He was sent for an EKG to determine his rhythm. He was instructed to resume the Multaq and continue the anticoagulation. His heart rate is well controlled. 11/24/2024 Type 2 diabetes mellitus with diabetic chronic kidney disease, unspecified CKD stage, unspecified whether long term acute care registered nurse insulin use (ICD-10 - E11.22) His hemoglobin [...] aggressive weight loss and sodium restriction. 12/21/2024 Type 2 diabetes mellitus with diabetic chronic kidney disease, unspecified CKD stage, unspecified whether long term acute care registered nurse insulin use (ICD-10 - E11.22) His hemoglobin A1c was 7.3. He is compliant with his medication. He is trying to consume a healthy diabetic diet and lose weight. No change in his regimen was necessary today. 03/30/2024 Type 2 diabetes mellitus with diabetic chronic kidney disease, unspecified CKD stage, unspecified whether long term acute care registered nurse insulin use (ICD-10 - E11.22) His hemoglobin A1c is 7.2 He is compliant with his medication. He is trying to consume a healthy diabetic diet and lose weight. No change in his regimen was necessary today. 10/21/2024 Type 2 diabetes mellitus with diabetic chronic kidney disease, unspecified CKD stage, unspecified whether long term acute care registered nurse insulin use (ICD-10 - E11.22) His hemoglobin A1c is 7.3. He is compliant with his medication. He is trying to consume a healthy diabetic diet and lose weight. No change in his regimen was necessary today. 04/27/2024 Benign prostatic hyperplasia, unspecified whether lower [...] his life so they could reduce this. 11/24/2024 Essential hypertensi on (ICD-10 - I10) His blood pressure is controlled at 134/80 and no change in his regimen was needed today. I have recommended aggressive weight loss and sodium restriction. 12/21/2024 Mixed hyperlipidemia (ICD-10 - E78.2) His lipids have been currently stable and no change in his regimen was needed.A fasting lipid profile has been ordered as part of a comprehensive database prior to his next visit. 04/27/2024 Mixed hyperlipidemia (ICD-10 - E78.2) The [...] recommended aggressive weight loss and sodium restriction. 11/24/2024 Mixed hyperlipidemia (ICD-10 - E78.2) His lipids [...] his life so they could reduce this. 04/27/2024 Obesity (BMI 30.0-34.9) (ICD-10 - E66.9) [...] daily life with his bilateral knee replacements. 11/24/2024 Benign prostatic hyperplasia, unspecified whether lower urinary [...] slow controlled rate. No murmurs were heard. 11/24/2024 Obesity (BMI 30.0-34.9) (ICD-10 - E66.9) His [...] change in his regimen was needed. 08/29/2024 Thrombocytopenia (ICD-10 - D69.6) His platelets have improved to 1 27,000. He has had no bleeding and he is avoiding aspirin. The value will be observed without treatment. No change in his regimen was needed. 12/21/2024 Arthritis of right knee (ICD-10 - M17.11) He is completing all of the activities of daily life with his bilateral knee replacements. Plan Of Treatment Pending Test Test Name Order Date PROFILE, FASTING (COMPREHENSIVE METABOLI C) 04/02/2020 PROFILE, FASTING (COMPREHENSIVE METABOLI C) 03/31/2022 PROFILE, FASTING (COMPREHENSIVE METABOLI C) 06/27/2021 PROFILE, FASTING (COMPREHENSIVE METABOLI C) 11/26/2023 PROFILE, FASTING (COMPREHENSIVE METABOLI C) 08/26/2023 PROFILE, FASTING (COMPREHENSIVE METABOLI C) 08/29/2024 PROFILE, FASTING (COMPREHENSIVE METABOLI C) 03/25/2021 PROFILE, RANDOM (COMPREHENSIVE METABOLIC ) 11/26/2020 PROFILE, RANDOM (COMPREHENSIVE METABOLIC ) 06/25/2020 HEMOGLOBIN A1C (GLYCOHEMOGLOBIN) 021 HEMOGLOBIN A1C (GLYCOHEMOGLOBIN) 022 HEMOGLOBIN A1C (GLYCOHEMOGLOBIN) 021 HEMOGLOBIN A1C (GLYCOHEMOGLOBIN) 023 HEMOGLOBIN A1C (GLYCOHEMOGLOBIN) 020 HEMOGLOBIN A1C (GLYCOHEMOGLOBIN) 020 LIPID PANEL 08/26/2023 LIPID PANEL 11/26/2020 LIPID PANEL 03/25/2021 LIPID PANEL 04/02/2020 LIPID PANEL 03/31/2022 LIPID PANEL 06/27/2021 PSA, TOTAL 11/26/2020 PSA, TOTAL 11/26/2023 PSA, TOTAL 08/29/2024 MICROALBUMIN, RANDOM 06/25/2020 MICROALBUMIN, RANDOM 11/26/2020 MICROALBUMIN, RANDOM 03/31/2022 CBC w DIFF 03/31/2022 CBC w DIFF 06/27/2021 CBC w DIFF 08/26/2023 CBC w DIFF 06/25/2020 CBC w DIFF 03/25/2021 CBC w DIFF 04/02/2020 CBC w DIFF 11/26/2020 CBC w DIFF 11/26/2023 LIPID TOTAL, FECES 06/25/2020 CBC WITH AUTO DIFF 08/29/2024 Lipid Panel 11/26/2023 Lipid Panel 08/29/2024 Microalbumin, Random 11/26/2023 Microalbumin, Random 08/26/2023 ECG holter monitor 48 hour 04/22/2023 ECG 12 lead EKG 04/22/2023 ECG 12 lead EKG 11/24/2024 Hemoglobin A1c 08/29/2024 Hemoglobin A1c 11/26/2023 Next Appt Details Provider Name:Carlos Alberto Sharpe, 04/28/2025 10:30:00 AM, [address] [place] [address] [address], [place], [address], Insurance Providers Payer Name Payer Address Payer Phone Subscriber Number Group Number Insured Name Patient Relationship to Insured Coverage Start Date Coverage End Date [facility] [address] [facility] [address] [facility] [phone] [id number] HERBER GOMEZ Self - patient is the insured MEDICARE NGS [address] [place] [phone] [id number] HERBER GOMEZ Self - patient is the insured Medical (General) History Medical History History ICD Code essential hypertension adult-onset diabetes mellitus hyperlipidemia osteoarthritis right knee BPH history of cataracts Atrial fibrillation Anticoagulated Surgical History Surgery Date(Month/Year) right eye cataract surgery 2019 bilateral knee replacentnts 2014 age 14 upper tooth denture Age 18 Full upper dentures Age 30 Failed Vasectomy Age 50 Rectal Surgery in [place] Dr. Hue haider No history Hospitalization History Reason Date(Month/Year) No history
== END 2025-02-13 13:22 | disposition home or self-care (01) ==
LOC: HO.HCS 12:45
PROVIDERS: PCP Internal Medicine Medical Oncology; Visit Provider Internal Medicine Cardiovascular Disease
DX: I48.0 Paroxysmal atrial fibrillation (principal); I10 Essential (primary) hypertension
CPT/HCPCS: 93010; 99214; G2211

== ENCOUNTER → 2025-02-13 12:44 | Outpatient (BNVA) | payer MEDICARE, SELFPAY | PROVIDERS: PCP Internal Medicine Medical Oncology; Visit Provider Internal Medicine Cardiovascular Disease | DX: I48.0 Paroxysmal atrial fibrillation (principal); I10 Essential (primary) hypertension | CPT/HCPCS: 93005; 99212 ==

== ENCOUNTER 2025-04-28 11:01 | Outpatient (REF) | payer MEDICARE, SELFPAY ==
--- OUTSIDE RECORDS SUMMARY | 2025-04-28 11:54 | XMS_ITS ---
Author Organization Carlos Alberto Sharpe III, MD Address [address] [place] [address] Care Team Providers Care Blanket Folder Name Role Phone Carlos Alberto Sharpe Primary Care Provider REASON FOR VISIT HCC Risk Codes Social History Sex Assigned At : Social History Observation Description Sex Assigned At Male Encounters Encounter Location Date Provider Diagnosis Carlos Alberto Sharpe III, MD [address] [place] [address] [place] [address] 02/13/2025 Carlos Alberto Sharpe Plan Of Treatment Next Appt Details Provider Name:Carlos Alberto Sharpe, 08/30/2025 10:00:00 AM, [address] [place] [address] [place], [phone], Provider Name:Carlos Alberto Sharpe, 05/01/2026 10:30:00 AM, [address] [place] [address] [place], [address], Progress Notes * MINA GOMEZDOB: [birth year] (84 yo M)Acc No.[id number]:02/13/2025 Patient:?MINA GOMEZ :1940???Age:84 Y???Sex:Male Address:[place], [address] * true * Date:? Generated for Printi ng/Faxing/eTransmitting on:?04/28/2025 11:54 AM EDT
[2025-04-28 13:19] LABS: MANUAL DIFF FLAG NO
[2025-04-28 13:26] LABS: Basophils Absolute Auto 0.1 X10*3/uL (0.0-0.2); Basophils Percent Auto 0.8 % (0-2); Eosinophils Absolute Auto 0.5 X10*3/uL (0.0-0.4); Eosinophils Percent Auto 6.5 % (0-4); Hemoglobin 13.3 g/dl (14.0-18.0); Imm Gran Abs Auto 0.02 X10*3/uL (0.00-0.03); Imm Gran Pct Auto 0.3 % (0.0-0.4); Lymphocytes Absolute Auto 1.4 X10*3/uL (1.2-4.9); Lymphocytes Percent Auto 18.1 % (20-40); Mean Corpuscular HGB Conc 33.3 g/dl (31.0-36.0); Mean Corpuscular Volume 93.2 fL (80.0-98.0); Mean Platelet Volume 12.8 fL (9.4-12.4); Monocytes Absolute Auto 0.7 X10*3/uL (0.1-1.2); Monocytes Percent Auto 8.8 % (2-11); Neutrophils Absolute Auto 5.1 x10*3/uL (2.0-8.3); Neutrophils Percent Auto 65.5 % (45-73); Platelet Count 168 X10*3/uL (160-400); Red Blood Count 4.29 X10*6/uL (4.60-5.80); White Blood Count 7.8 X10*3/uL (4.8-10.8)
[2025-04-28 13:46] LABS: Estimated Average Glucose 148 mg/dL; Hemoglobin A1c % 6.8 % (<6.0)
[2025-04-28 13:51] LABS: Alanine Aminotransferase 19 U/L (0-40); Albumin Level 4.3 g/dL (3.5-5.0); Alkaline Phosphatase 55 U/L (39-117); Anion Gap 14 (12-20); Aspartate Amino Transferase 25 U/L (5-37); Bilirubin Total 0.5 mg/dL (0.0-1.0); Blood Urea Nitrogen 22 mg/dL (9-16); Calcium 9.2 mg/dL (8.4-10.2); Carbon Dioxide 25 mmol/L (22-29); Chloride 107 mmol/L (96-108); Cholesterol 124 mg/dL (<200); Estimated Glomerular Filt Rate 48; Glucose Fasting 146 mg/dL (60-99); HDL Cholesterol 49 mg/dL (>40); LDL Cholesterol Calculated 61 mg/dL (<100); Potassium 4.5 mmol/L (3.3-5.1); Sodium 141 mmol/L (135-145); Total Protein 6.9 g/dL (6.5-8.0); Triglycerides 70 mg/dL (<150)
[2025-04-28 14:07] LABS: Prostate Specific Antigen 1.44 ng/mL (<0.05-4.0)
[2025-04-28 14:34] LABS: Creatinine Urine 118.42 mg/dL
== END 2025-04-28 11:02 | disposition home or self-care (01) ==
LOC: HO.10HDL 11:01
PROVIDERS: Visit Provider Internal Medicine Medical Oncology
DX: Z00.00 Encounter for general adult medical examination without abnormal findings (principal); E11.22 Type 2 diabetes mellitus with diabetic chronic kidney disease; N40.0 Benign prostatic hyperplasia without lower urinary tract symptoms; E78.2 Mixed hyperlipidemia; Z12.5 Encounter for screening for malignant neoplasm of prostate
CPT/HCPCS: 36415; 80053; 80061; 82043; 82570; 83036; 84153; 85025

== ENCOUNTER 2025-08-21 10:39 | Outpatient (REF) | payer MEDICARE, SELFPAY ==
[2025-08-21 12:26] LABS: Anion Gap 13 (12-20); Blood Urea Nitrogen 22 mg/dL (9-16); Calcium 9.4 mg/dL (8.4-10.2); Carbon Dioxide 25 mmol/L (22-29); Chloride 107 mmol/L (96-108); Estimated Glomerular Filt Rate 43; Potassium 4.8 mmol/L (3.3-5.1); Sodium 140 mmol/L (135-145)
== END 2025-08-21 10:40 | disposition home or self-care (01) ==
LOC: HO.LAB 10:39
PROVIDERS: PCP Internal Medicine Medical Oncology; Visit Provider Internal Medicine Cardiovascular Disease
DX: I48.0 Paroxysmal atrial fibrillation (principal); I10 Essential (primary) hypertension; Z79.01 Long term (current) use of anticoagulants; Z79.899 Other long term (current) drug therapy
CPT/HCPCS: 36415; 80048; 93005; 99212

== ENCOUNTER 2025-08-21 10:39 | Outpatient (AMB) | payer MEDICARE, SELFPAY ==
--- OUTSIDE RECORDS SUMMARY | 2024-12-12 11:14 | XMS_ITS ---
Author Organization Carlos Alberto Sharpe III, MD Address [address] [place] [address] [place] [address] Care Team Providers Care Early Childhood Specialist Name Role Phone Dr. Carlos Alberto Sharpe III Primary Care Provider REASON FOR VISIT Rx Request Social History Sex Assigned At : Social History Observation Description Sex Assigned At Male Encounters Encounter Location Date Provider Diagnosis Carlos Alberto Sharpe III, MD [address] [place] [address] [place] [address] 12/12/2024 Carlos Alberto Sharpe Plan Of Treatment Next Appt Details Provider Name:Carlos Alberto hSarpe , 08/30/2025 10:00:00 AM, [address] [place] [address] [address], [address], Provider Name:Carlos Alberto Sharpe , 05/01/2026 10:30:00 AM, [address] [place] [address] [place], [address], Progress Notes * HERBER GOMEZDOB: (84 yo M)Acc No.[id number]:12/12/2024 Patient: HERBER VERDUZCO :1940 A ge:84 Y S ex:Male Address:[place], [address] * true * Date: Generated for Printi ng/Faxing/eTransmitting on: 0 08/21/2025 01:05 PM EDT
--- OUTSIDE RECORDS SUMMARY | 2024-12-12 12:37 | XMS_ITS ---
Author Organization Carlos Alberto Sharpe III, MD Address [address] [place] [address] Care Team Providers Care Nail Puller Name Role Phone Dr. Carlos Alberto Sharpe III Primary Care Provider [phone] Medications Medication SIG (Take, Route, Frequency, Duration) Notes Start Date End Date Status Clindamycin HCl 300 MG 2 capsules Orally in am before dental work for 1 days 12/12/2024 12/24/2024 Active Social History Sex Assigned At : Social History Observation Description Sex Assigned At Male Encounters Encounter Location Date Provider Diagnosis Carlos Alberto Sharpe III, MD [address] [place] [address] [place] [address] 12/12/2024 Carlos Alberto Sharpe Plan Of Treatment Medication Medication Name Sig Start Date Stop Date Notes Clindamycin HCl 300 MG 2 capsules Orally in am before dental work for 1 days 12/12/2024 12/24/2024 Next Appt Details Provider Name:Carlos Alberto Sharpe , 08/30/2025 10:00:00 AM, [address] [place] [address] [place], [address], Provider Name:Carlos Alberto Sharpe , 05/01/2026 10:30:00 AM, [address] [place] [address] [place], [address], Progress Notes * MINA GOMEZDOB: [birth year] (84 yo M)Acc No.[id number]:12/12/2024 Patient: C REVIER, MINA :1940 A ge:84 Y S ex:Male Address:[address] [place], [place] [address], [address] * Refills Start Clindamycin HCl Capsule, 300 MG, Orally, 2, 2 capsules, in am before dental work, 1 days, Refills=11 * true * Date: Generated for Coreen chaudhry/Ash/Ethanitting on: 0 08/21/2025 01:05 PM EDT
--- OUTSIDE RECORDS SUMMARY | 2024-12-21 07:15 | XMS_ITS ---
Author Organization Carlos Alberto Sharpe III, MD Address [address] [place] [address] [place] [address] Care Team Providers Care Financial Report Service Sales Agent Name Role Phone Dr. Carlos Alberto Sharpe III Primary Care Provider Allergies Allergen (clinical drug ingredient) Drug/Non Drug Allergy documented on EMR Reaction Allergy Type Onset Date Status amoxicillin Amoxicillin Unknown Drug Allergy Act nancy REASON FOR VISIT Persistent atrial fibrillation, Diabetes, Hypertension, Hyperlipidemia, Benign prostatic hypertrophy, Obesity Medications Medication SIG (Take, Route, Frequency, Duration) Notes Start Date End Date Status amLODIPine Besylate 10 MG Take 1 tablet by mouth once daily Active metFORMIN HCl ER 500 MG TAKE 1 TABLET BY MOUTH ONCE DAILY WITH EVENING MEAL Active Pravastatin Sodium 40 MG 1 tablet Orally Once a day Active Lisinopril 40 MG Take 1 tablet by christie th once daily Active Eliquis 5 MG TAKE 1 TABLET BY CHRISTIE TH TWICE DAILY Oral Active Triamcinolone Acetonide 0.1 % 1 application Externally Twice a day 03/31/2022 Active Clindamycin HCl 300 MG 2 capsules Orally in am before dental work 12/12/2024 Active Social History Tobacco Use: Social History Observation Description Date Details (start date - stop date) Never Smoker NA - NA Sex Assigned At : Social History Observation Description Sex Assigned At Male Tobacco Use/Smoking Question Answer Notes Patient is a nonsmoker Additional Findings: Tobacco Non-User Aggressive non-smoker Problems Problem Type SNOMED Code ICD Code Onset Dates Problem Status W/U Status Risk Notes Problem 246064118 Anticoagulated (Z79.01) Active confirmed Vital Signs Heart Rate 90.0 /min 12/21/2024 Height 69 in 12/21/2024 Weight 216 lbs 12/21/2024 BMI 31.89 kg/m2 12/21/2024 Encounters Encounter Location Date Provider Diagnosis Carlos Alberto Sharpe III, MD [address] [place] [address] [place] [address] 12/21/2024 Carlos Alberto Sharpe 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, unspecified CKD stage, unspecified whether watcher automat long goods insulin use E11.22 ; Essential hypertension I10 ; Mixed hyperlipidemia E78.2 ; Benign prostatic hyperplasia, unspecified whether lower urinary tract symptoms present N40.0 ; Obesity (BMI 30.0-34.9) E66.9 ; Thrombocytopenia D69.6 and Arthritis of right knee M17.11 Assessments Encounter Date Diagnosis (ICD Code) Assessment Notes Treat ment Notes Treatment Clinical Notes 12/21/2024 Type 2 diabetes mellitus with diabetic chronic kidney disease, unspecified CKD stage, unspecified whether watcher automat long goods insulin use (ICD-10 - E11.22) His hemoglobin A1c was 7.3. He is compliant with his medication. He is trying to consume a healthy diabetic diet and lose weight. No change in his regimen was necessary today. 12/21/2024 Essential hypertensi on (ICD-10 - I10) His blood pressure was controlled at 134/80 and no change in his regimen was needed today. I have recommended aggressive weight loss and sodium restriction. 12/21/2024 Mixed hyperlipidemia (ICD-10 - E78.2) His lipids have been currently stable and no change in his regimen was needed.A fasting lipid profile has been ordered as part of a comprehensive database prior to his next visit. 12/21/2024 Benign prostatic hyperplasia, unspecified whether lower urinary tract symptoms present (ICD-10 - N40.0) He experiences nocturia once or twice a night depending upon fluid intake. We have discussed modifications in his life so they could reduce this. 12/21/2024 Obesity (BMI 30.0-34.9) (ICD-10 - E66.9) His weight is stable with a body mass index of 31.89. He has gained 2 pounds. We reviewed his diet and his nutrition. I made clear the relationship between control of diabetes and weight. He made a plan to lose weight at a rate of one half of a pound per week to regular physical activity and a diet restricted in fat calories and sodium. 12/21/2024 Thrombocytopenia (ICD-10 - D69.6) His platelets wereto 1 27,000. He has had no bleeding and he is avoiding aspirin. The value will be observed without treatment. No change in his regimen was needed. 12/21/2024 Arthritis of right knee (ICD-10 - M17.11) He is completing all of the activities of daily life with his bilateral knee replacements. Plan Of Treatment Medication Medication Name Sig Start Date Stop Date Notes amLODIPine Besylate 10 MG Take 1 tablet by mouth once daily metFORMIN HCl ER 500 MG TAKE 1 TABLET BY MOUTH ONCE DAILY WITH EVENING MEAL Pravastatin Sodium 40 MG 1 tablet Orally Once a day Lisinopril 40 MG Take 1 tablet by christie th once daily Eliquis 5 MG TAKE 1 TABLET BY CHRISTIE TH TWICE DAILY Oral Triamcinolone Acetonide 0.1 % 1 applicat ion Externally Twice a day 03/31/2022 Clindamycin HCl 300 MG 2 capsules Orally in am before dental work 12/12/2024 Next Appt Details Follow Up: 2 Months, Reason: ov Provider Name:Carlos Alberto Sharpe , 08/30/2025 10:00:00 AM, [address] [place] [address] [address], [place], [address], Provider Name:Carlos Alberto Sharpe , 05/01/2026 10:30:00 AM, [address] [place] [address] [address], [place], [address], Progress Notes * MINA GOMEZDOB: [birth year] (84 yo M)Acc No.[id number]:12/21/2024 Patient: MINA VERDUZCO Provider: Brandie Sharpe MD :1940 A ge:84 Y S ex:Male Date:12/21/2024 Address:[address] [id number] Subjective: * Chief Complaints: * P ersistent atrial fibrillationDiabetesHypertensionHyperlipidemiaBenign prostatic hypertrophyObesity * HPI: * : Telehealth L ocation of provider rendering services: { ...} [address] [place] [address] [address] [facility] [address] L ocation of patient: axel rogel listed in demographics for today's visit P atient identification confirmed using: EDILBERTO Jacobsen ame elehealth method: T elephone only. Patient not visible to care provider. C onsent: P atient verbally consented to treatment, Patient verbally consented to billing insurance company, Patient informed of any privacy concerns related to method of visit T otal time spent with patient (mins) 2 2 The patient, an 84-year-old male, reported feeling unwell due to what he believes is the flu. He described symptoms such as lack of appetite, difficulty sleeping due to constant coughing and wiping his mouth. He also mentioned feeling wiped out due to the illness. The patient also reported a past incident where he felt weak and experienced a whiteout sensation during a family gathering. His pulse was taken by a family member who is a medic and was found to be 90. The patient is also dealing with a heart condition and is currently on medication for it. He has an appointment with a hearings reporter in a few weeks. * ROS: G eneral/Constitutional: pain o nly normal aches and pains. C hills d enies.?Fatigue a dmits. F ever d enies. E NT: Decreased hearing i n both ears. R espiratory: Cough d enies. C ardiovascular: Chest pain with exertion d enies. D yspnea on exertion?denies. S hortness of breath d enies. G astrointestinal: Constipation o ccasional. D ecreased appetite d enies. D iarrhea d enies. H eartburn d enies. N ausea d enies. R ectal bleeding d enies. V omiting d enies. H ematology: bruising d enies. p etechiae d enies. S wollen glands n one have been noted. G enitourinary: Frequent urination o nce a night. M usculoskeletal: Muscle aches d enies. P ainful joints d enies. S ciatica d enies. W eakness d enies. S kin: Itching d enies. R salty d enies. S kin lesion(s)?denies. N eurologic: Difficulty speaking d enies. D izziness d enies.?Headache d enies. L ow back pain d enies. P sychiatric: Depressed mood d enies. * Medical History: * Surgical History: r ight eye cataract surgery 2019bilateral knee replacentnts 2015age 14 upper tooth denture Age 18 Full upper dentures Age 30 Failed Vasectomy Age 50 Rectal Surgery in [place] Dr. Johnson No history * Hospitalization/Major Diagno stic Procedure: N o history * Family History: F ather: 82 yrs, diabetes,chf, etoh, smoker, diagnosed with CVD, DM, HTN. M other: 66 yrs, quadrplegic since fall, [place], [place], from [place], diagnosed with HTN. 1 brother(s) - healthy. 1 son(s) , 2 daughter(s) - healthy. . His father smokes cigarettes and drank heavily [...] or addiction or mental illness. * Social History: T obacco Use: T obacco Use/Smoking P atgreta is a n onsmoker A dditional Findings: Tobacco Non-User A ggressive non-smoker H e does not drink or smoke. He is retired. He is to [place] for the last 61 years. His became quadriplegic after a fall and of pneumonia. She also had multiple sclerosis. 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 His 2 children and 4 grandsons are healthy. * Medications: T akingTriamcinolone Acetonide 0.1 % Cream 1 application Externally Twice a day Lisinopril 40 MG Tablet Take 1 tablet by mouth once daily Pravastatin Sodium 40 MG Tablet 1 tablet Orally Once a day metFORMIN HCl ER 500 MG Tablet Extended Release 24 Hour TAKE 1 TABLET BY MOUTH ONCE DAILY WITH EVENING MEAL amLODIPine Besylate 10 MG Tablet Take 1 tablet by mouth once daily Eliquis 5 MG Tablet TAKE 1 TABLET BY MOUTH TWICE DAILY Oral Clindamycin HCl 300 MG Capsule 2 capsules Orally in am before dental work , stop date 12/24/2024Medication List reviewed and reconciled with the patientTaking Triamcinolone Acetonide 0.1 % Cream 1 application Externally Twice a day Taking Lisinopril 40 MG Tablet Take 1 tablet by mouth once daily Taking Pravastatin Sodium 40 MG Tablet 1 tablet Orally Once a day Taking metFORMIN HCl ER 500 MG Tablet Extended Release 24 Hour TAKE 1 TABLET BY MOUTH ONCE DAILY WITH EVENING MEAL Taking amLODIPine Besylate 10 MG Tablet Take 1 tablet by mouth once daily Taking Eliquis 5 MG Tablet TAKE 1 TABLET BY MOUTH TWICE DAILY Oral Taking Clindamycin HCl 300 MG Capsule 2 capsules Orally in am before dental work , stop date 12/24/2024Medication List reviewed and reconciled with the patient * Allergies: A moxicillinno[Allergies Verified] Objective: * Vitals: H t: 69, Wt:216, BMI:31.89, HR:90.0, Ht-cm: 175.26, Wt-k.98. * P ast Orders: L ab:Glucose, Whole Blood (Order Date - 11/11/2024) (Collection Date & Time - 11/11/2024 12:42 PM) Value Reference Range Glucose, Whole Blood 134 H 60-115 - mg/dL Assessment: * Assessment: 1. T ype 2 diabetes mellitus with diabetic chronic kidney disease, unspecified CKD stage, unspecified whether watcher automat long goods insulin use - E11.22 (Primary) N otes :His hemoglobin A1c was 7.3. He is compliant with his medication. He is trying to consume a healthy diabetic diet and lose weight. No change in his regimen was necessary today. 2 . E ssential hypertension - I10 N otes :His blood pressure was controlled at 134/80 and no change in his regimen was needed today. I have recommended aggressive weight loss and sodium restriction. 3 . M ixed hyperlipidemia - E78.2 N otes :His lipids have been currently stable and no change in his regimen was needed.A fasting lipid profile has been ordered as part of a comprehensive database prior to his next visit. 4 . B enign prostatic hyperplasia, unspecified whether lower urinary tract symptoms present - N40.0 N otes :He experiences nocturia once or twice a night depending upon fluid intake. We have discussed modifications in his life so they could reduce this. 5 . O besity (BMI 30.0-34.9) - E66.9 N otes :His weight is stable with a body mass index of 31.89. He has gained 2 pounds. We reviewed his diet and his nutrition. I made clear the relationship between control of diabetes and weight. He made a plan to lose weight at a rate of one half of a pound per week to regular physical activity and a diet restricted in fat calories and sodium. 6 . T hrombocytopenia - D69.6 N otes :His platelets wereto 1 27,000. He has had no bleeding and he is avoiding aspirin. The value will be observed without treatment. No change in his regimen was needed. 7 . A rthritis of right knee - M17.11 N otes :He is completing all of the activities of daily life with his bilateral knee replacements. Plan: * Treatment: 2. O thers Continue Clindamycin HCl Capsule, 300 MG, 2 capsules, Orally, in am before dental work; C ontinue metFORMIN HCl ER Tablet Extended Release 24 Hour, 500 MG, TAKE 1 TABLET BY MOUTH ONCE DAILY WITH EVENING MEAL; C ontinue amLODIPine Besylate Tablet, 10 MG, Take 1 tablet by mouth once daily.? * Procedure Codes: * Preventive Medicine: Counseling: C are goal follow-up plan: Counseling for abnormal BMI given Y es Above Normal BMI Follow-up D ietary management education, guidance, and counseling, Dietary needs education, Exercise promotion: strength training DM Care Plan: P atient Lifestyle Goals P atient wants to be able to manage diabetes without too much effort. T reatment Goals H bA1C < 7.0, Blood Sugars less than < 115. B arriers n o barriers. S elf-Managment Goals W ork on weight loss, with a goal of losing 1 lb per week, Stop drinking juice and/or soda, replace with more water. * Follow Up: 2 Months (Reason: ov) * Images: * Sign off status: Completed true * Provider: Brandie Sharpe MD Date: 0 12/21/2024 Generated for Coreen chaudhry/Ash/Ethanitting on: 08/21/2025 01:05 PM EDT History and Physical Notes * HPI (History of Present Illness) Category Sub-Category Detail Notes Telehealth Location of [facility] rendering services:: {...} [address] [facility] [address] Location of patient:: address listed in demographics for today's visit Patient identification confirmed using:: Name, Telehealth method:: Telephone only. Kiley ent not visible to care provider. Consent:: Patient verbally c onsented to treatment, Patient verbally consented to billing insurance company, Patient informed of any privacy concerns related to method of visit Total time spent with patient (mins): 22
--- OUTSIDE RECORDS SUMMARY | 2025-02-13 06:48 | XMS_ITS ---
Author Organization Carlos Alberto Sharpe III, MD Address [address] [place] [address] [place] [phone] Care Team Providers Care Water Quality Control Engineer Name Role Phone Dr. Carlos Alberto Sharpe III Primary Care Provider [phone] REASON FOR VISIT HCC Risk Codes Social History Sex Assigned At : Social History Observation Description Sex Assigned At Male Encounters Encounter Location Date Provider Diagnosis Carlos Alberto Sharpe III, MD [address] [place] [address] [address] [facility] [place] [phone] 02/13/2025 Carlos Alberto Sharpe Plan Of Treatment Next Appt Details Provider Name:Carlos Alberto Sharpe , 08/30/2025 10:00:00 AM, [address] [place] [address] [place], [phone], Provider Name:Carlos Alberto Sharpe , 05/01/2026 10:30:00 AM, [address] [place] [address] [place], [phone], Progress Notes * MINA GOMEZDOB: (84 yo M)Acc No.[id number]:02/13/2025 Patient: MINA VERDUZCO :1940 A ge:84 Y S ex:Male Address:[address] [facility] [place], [address] * true * Date: Generated for Printi ng/Faxing/eTransmitting on: 0 08/21/2025 01:05 PM EDT
--- OUTSIDE RECORDS SUMMARY | 2025-04-28 06:30 | XMS_ITS ---
Author Organization Carlos Alberto Sharpe III, MD Address [address] [place] [address] [place] [address] Care Team Providers Care Shoulder Joiner Name Role Phone Dr. Carlos Alberto Sharpe [...] Panel Reviewed date:04/29/2025 05:40:37 AM Interpretation: Performing Lab:[facility], [address] [place] [id number] Notes/Report: Triglycerides 70 <150 mg/dL Desirable Triglyceride: [...] Random Reviewed date:04/29/2025 05:40:37 AM Interpretation: Performing Lab:[address] [address] Notes/Report: Creatinine Urine 118.42 Microalbumin Urine 6.0 Microalbum/Creatinine Ratio Ur 5.0 <30 ug/mg cr Albumin/Creatinine Ratio Reference Ranges: Normal: < 30 ug/mg creatinine Microalbuminuria: 30 - 300 ug/mg creatinine Clinical Albuminuria: > 300 ug/mg creatinine Hemoglobin A1c Reviewed date:04/29/2025 05:40:37 AM Interpretation: Performing Lab:[address] [address] Notes/Report: Hemoglobin A1c % 6.8 <6.0 % [...] average glucose, using the formula of the [id number] Average Glucose study (ADAG), Diabetes Care, Vol.31,#8, [...] Provider Diagnosis Carlos Alberto Sharpe III, MD [address] [place] [address] [place] [address] 04/28/2025 Carlos Alberto Sharpe 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, unspecified CKD stage, unspecified whether alf insulin use E11.22 ; Benign prostatic hyperplasia, [...] kidney disease, unspecified CKD stage, unspecified whether equipment operator intermodal yard insulin use (ICD-10 - E11.22) He has [...] Name:Carlos Alberto Sharpe , 08/30/2025 10:00:00 AM, [address] [place] [address] [address], [place], [address], Provider Name:Carlos Alberto Sharpe , 05/01/2026 10:30:00 AM, [address] [place] [address] [address], [place], [address], Progress Notes * MINA GOMEZDOB: [birth year] (84 yo M)Acc No.[id number]:04/28/2025 Progress Notes Patient: MINA VERDUZCO Provider: Brandie Sharpe MD :1940 A ge:84 Y S ex:Male Date:04/28/2025 Address:[address] [place] [id number] Subjective: * Chief Complaints: * A nnual [...] Failed Vasectomy Age 50 Rectal Surgery in [place] Dr. Johnson No history * Hospitalization/Major Diagno [...] had multiple sclerosis. 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 [...] May have water,PLEASE FAX COMPLETED RESULTS TO [phone] * Lab:Microalbumin, Random * Collection Date 04/28/2025 [...] May have water,PLEASE FAX COMPLETED RESULTS TO [phone] * Lab:Hemoglobin A1c * Collection Date 04/28/2025 [...] May have water,PLEASE FAX COMPLETED RESULTS TO [phone] * Lab:Complete Blood Count Aut o Diff [...] kidney disease, unspecified CKD stage, unspecified whether alf insulin use - E11.22 (Primary) N otes [...] RO trace Negative - Trace * G ZO neg Negative - * K ET neg [...] * Provider: Brandie Sharpe MD Date: 0 04/28/2025 Generated for Petri ng/Fajoseg/eTransmitting on: 0 08/21/2025 01:05 PM EDT History and Physical [...]
--- NOTE | 2025-08-21 10:40 | MHC.OFFVIS ---
Vital Signs 08/21/25 10:41 Height 5 ft 10 in Weight 204 lb 2.369 oz BMI 29.3 BP 116/54 L Blood Pressure Location Lt brachial Position Sitting Pulse 84 Pulse Source Monitor Intake Visit Reasons: 6 mth f/up w/ ekg Intake Note: 6 Month F/u With EKG Accompanied by: Self / Same As Patient Allergies amoxicillin Allergy (Unknown, Verified 08/21/25 10:46) hives levofloxacin (Levaquin) Allergy (Unknown, Verified 08/21/25 10:46) Hives procaine (From NOVOCAIN) Allergy (Unknown, Verified 08/21/25 10:46) UNKNOWN shellfish Allergy (Unknown, Uncoded 11/11/24 12:32) anaphylaxis Medication List - Last Reconciled 08/21/25 by Simba Garner MD amlodipine 10 mg PO DAILY apixaban (Eliquis) 5 mg PO BID dronedarone (Multaq) 400 mg PO BID lisinopril 40 mg PO DAILY metformin ER 500 mg PO QPM pravastatin 40 mg PO DAILY triamcinolone acetonide 0.1% 1 appl topical BID-TID HPI Comments Details: Herber comes for follow-up. He has not had any episodes of atrial fibrillation. Denies any prolonged palpitation irregular heartbeat. No shortness of breath, orthopnea, PND. He does say when he gets up in sabianist she does get lightheaded. Denies any exertional chest pain or shortness of breath. Taking all his medications questioning as to all her medications he needs to take. No bleeding issues or neurologic events. [facility] Medical History Persistent atrial fibrillation Hyperlipidemia Diabetes mellitus HTN (hypertension) Surgical History Hx of bilateral cataract extraction History of colon resection Hx of colonoscopy Social History Are you a primary assistant child care teacher to a significant other at home: No Do you presently have visiting nurse or other home services: No Alcohol intake: current Alcohol intake frequency: holidays/special occasions only Patient Tobacco Use Status: Never used Tobacco Review of Systems Const Denies daytime sleepiness, Denies difficulty sleeping, Denies snoring, Denies stops breathing during sleep and Denies weakness Card Denies chest pain, Denies rapid heart rate, Denies irregular heart rhythm, Denies claudication, Denies leg edema, Reports lightheadedness, Denies palpitations, Reports dyspnea, Denies dyspnea on exertion, Denies orthopnea, Denies paroxysmal nocturnal dyspnea and Denies slow heart rate Resp Denies cough, Reports dyspnea, Denies dyspnea on exertion and Denies snoring GI Reports no additional complaints, Denies hematochezia, Denies change in stool character and Denies dyspepsia Musc Denies abnormal gait, Denies muscle weakness and Denies numbness Neuro Denies abnormal gait, Denies numbness and Denies weakness Endo Denies palpitations Physical Exam Vital Signs: Last Vital Signs Pulse 84 08/21/25 10:41 BP 116/54 L 08/21/25 10:41 BMI result Body Mass Index 29.3 Const General: cooperative, comfortable, no acute distress, well developed, alert, awake, Physically active and well groomed Nutritional Appearance: well nourished and overweight Orientation/consciousness: patient oriented x3 Limitations: no limitations HEENT Head: Yes normocephalic and Yes atraumatic Neck Neck: Yes trachea midline, Yes supple and Yes no JVD Resp Effort & Inspection: normal respiratory effort Auscultation: clear to auscultation bilaterally Cardio Jugular venous distension: no JVD Palpation: normal PMI Rate: regular rate Rhythm: regular rhythm Heart sounds: S1 normal heart sound present, S2 normal heart sound present, no click, no gallops, no murmurs and no rubs GI Auscultation: normal bowel sounds Skin General skin exam: no rashes or lesions noted Neuro General: patient oriented x3 and no focal motor deficits Extrem General: Yes no clubbing, cyanosis or edema Office Procedures EKG Details: EKGs shows normal sinus rhythm with sinus arrhythmias with septal QS pattern otherwise normal EKG 41411-[id number], Complete Assessment & Plan Assessment & Plan (1) Paroxysmal atrial fibrillation: Code(s): I48.0 - Paroxysmal atrial fibrillation Category: Medical Plan: Paroxysmal atrial fibrillation which required cardioversion has maintain rhythm on Multaq therapy. Overall clinically doing well. We discussed the pathophysiology of atrial fibrillation as well as role of maintaining rhythm in the long run to improve long-term outcome especially reduce risk of development of heart failure. This was discussed with him. He is tolerating Multaq therapy well at this point time. He will continue the same. Advised to report any new symptoms to me. Will need EKGs every 3 months. Continue full oral anticoagulation, currently on Eliquis 5 mg b.i.d.. Importance of oral anticoagulation therapy to reduce stroke risk was discussed. His creatinine is gradually rising. Would suggest repeat basic metabolic profile today and would advise every 3 months. If his creatinine is about 1.5 will require reduction in dose of Eliquis to 2.5 mg b.i.d.. (2) HTN (hypertension): Code(s): I10 - Essential (primary) hypertension Category: Medical Plan: Longstanding hypertension which is currently well optimized on current therapy with amlodipine and lisinopril therapy. Continue the same. Importance of good blood pressure control was discussed. Advised to monitor blood pressure at home maintain a log. Goal blood pressure less than 130/84. Low-salt diet was discussed. Continue management of diabetes goal hemoglobin A1c less than 7%. Will follow up in the clinic every 3 months for EKG in 1 year with me. Thank you for allowing me to partake in his care Orders: Orders Basic Metabolic Panel Today I48.0 - Paroxysmal atrial fibrillation Coding Level of Care Code Est Pt Level 4 (52512) Complex EM visit Add On G2211 Diagnoses Paroxysmal atrial fibrillation I48.0 HTN (hypertension) I10 CPT Codes EKG - CPT: 54731-[id number], Complete ([id number])
[2025-08-21 10:41] VITALS: BP 116/54; PULSE 84; BMI 29.3
--- OUTSIDE RECORDS SUMMARY | 2025-08-21 13:06 | XMS_ITS | Clinical Summary ---
Author Organization [facility] Address [address] [place] [address] Care Team Providers Care Financial Planner Name Role Phone Karrie Steve MD Primary Care Provider Unavailabl e Social History Tobacco Use Types Packs/Day Years Used Date Smoking Tobacco: Never Assessed Sex and Gender Information Value Date Recorded Sex Assigned at Not on file Legal Sex Male 7:36 AM EDT Gender Identity Not on file Sexual Orientation Not on file Plan of Treatment Not on file Care Teams Financial Planner Relationship Specialty Start Date End Date Karrie Steve MD [address] [place] [address] PCP - General Internal Medicine 07/07/18
--- OUTSIDE RECORDS SUMMARY | 2025-08-21 13:06 | XMS_ITS | Clinical Summary ---
Author Organization [facility] ity Address [address] [place] [address] Care Team Providers Care Piped Buttonhole Machine Operator Name Role Phone Unavailable Primary Care Provider [...] Vaccines (1 of 2) 1988 RSV Immunization Adult Patie nts (1 - 1-dose 75+ series) 2013 Depression Screening 11/30/2024 COVID-19 Vaccine (1 - 2023-2 5 season) 2025 Influenza Vaccine (#1) 2025 HIB Vaccines Aged Out No longer eligi [...] age to complete this topic Meningococcal B Vaccine Aged Out No l onger eligible based on patient's age to complete this topic RSV Immunization Patients Un mariam 20 months Aged Out No longer eligible b ased on patient's age to complete this topic Varicella Vaccines Aged Out No longer eligible based on patient's age to complete this topic
--- OUTSIDE RECORDS SUMMARY | 2025-08-21 13:06 | XMS_ITS | Patient Health Record ---
Author Organization Carlos Alberto Sharpe III, MD Address [address] [place] [address] [place] [address] Care Team Providers Care Manager Loss Prevention Name Role Phone Dr. Carlos Alberto Sharpe [...] Panel Reviewed date:04/29/2025 05:40:37 AM Interpretation: Performing Lab:[facility], [address] [place] [address] Notes/Report: Triglycerides 70 <150 mg/dL Desirable Triglyceride: [...] Random Reviewed date:04/29/2025 05:40:37 AM Interpretation: Performing Lab:[address] [address] Notes/Report: Creatinine Urine 118.42 Microalbumin Urine 6.0 Microalbum/Creatinine Ratio Ur 5.0 <30 ug/mg cr Albumin/Creatinine Ratio Reference Ranges: Normal: < 30 ug/mg creatinine Microalbuminuria: 30 - 300 ug/mg creatinine Clinical Albuminuria: > 300 ug/mg creatinine Hemoglobin A1c Reviewed date:04/29/2025 05:40:37 AM Interpretation: Performing Lab:[address] [address] Notes/Report: Hemoglobin A1c % 6.8 <6.0 % [...] average glucose, using the formula of the P1K-Ljcfkqh Average Glucose study (ADAG), Diabetes Care, Vol.31,#8, Jun. 2007 Complete Blood Count Auto Di ff Reviewed date:08/24/2024 06:34:30 AM Interpretation: Performing Lab:[facility], [address] [place] [address] Notes/Report: White Blood Count 7.0 4.8-10.8 X10*3/uL [...] NRBC Abs Auto 0.000 0.0-0.012 X10*3/uL Comprehensive [place]. Panel Fa st Reviewed date:08/24/2024 06:34:30 AM Interpretation: Performing Lab:[facility], [address] [place] [address] Notes/Report: Sodium 142 135-145 mmol/L Potassium 4.1 3.3-5.1 mmol/L Chloride 108 96-108 mmol/L Carbon Dioxide 26 22-29 mmol/L Anion Gap 12 12-20 Blood Urea Nitrogen 19 9-16 mg/dL Creatinine 1.23 0.5-1.4 mg/dL Estimated Glomerular Filt Rate 56 NOTE: For -Israeli individuals, multiply the result by 1.210. Chronic [...] Panel Reviewed date:08/24/2024 06:34:30 AM Interpretation: Performing Lab:[address] [address] Notes/Report: Triglycerides 89 <150 mg/dL Desirable Triglyceride: [...] Random Reviewed date:08/24/2024 06:34:30 AM Interpretation: Performing Lab:[address] [address] Notes/Report: Creatinine Urine 110.76 Microalbumin Urine 7.0 Microalbum/Creatinine Ratio Ur 6.3 <30 ug/mg cr Albumin/Creatinine Ratio Reference Ranges: Normal: < 30 ug/mg creatinine Microalbuminuria: 30 - 300 ug/mg creatinine Clinical Albuminuria: > 300 ug/mg creatinine Hemoglobin A1c Reviewed date:08/24/2024 06:34:30 AM Interpretation: Performing Lab:[address] [address] Notes/Report: Hemoglobin A1c % 7.3 <6.0 % [...] average glucose, using the formula of the C3K-Dryaswu Average Glucose study (ADAG), Diabetes Care, Vol.31,#8, 2007 Glucose, Whole Blood Reviewed date:11/12/2024 08:50:35 PM Interpretation: Performing Lab:[facility], [address] [place] [address] Notes/Report: Glucose, Whole Blood 134 60-115 mg/dL METER # : [id number] Complete Blood Count Auto Di ff Reviewed date:04/29/2025 05:40:37 AM Interpretation: Performing Lab:[facility], [address] [place] [address] Notes/Report: White Blood Count 7.8 4.8-10.8 X10*3/uL Red Blood Count 4.29 4.60-5.80 X10*6/uL Hemoglobin 13.3 14.0-18.0 g/dl Hematocrit 40.0 42.0-52.0 % Mean Corpuscular Volume 93.2 80.0-98.0 fL Mean Corpuscular Hemoglobin 31.0 27.0-33.0 pg Mean Corpuscular HGB Conc 33.3 31.0-36.0 g/dl Red Cell Distribution Width 13.0 11.0-16.0 % Platelet Count 168 160-400 X10*3/uL Mean Platelet Volume 12.8 9.4-12.4 fL Neutrophils Percent Auto 65.5 45-73 % Imm Gran Pct Auto 0.3 0.0-0.4 % Lymphocytes Percent Auto 18.1 20-40 % Monocytes Percent Auto 8.8 2-11 % Eosinophils Percent Auto 6.5 0-4 % Basophils Percent Auto 0.8 0-2 % NRBC Pct Auto 0.0 0.0-0.2 /100WBC Neutrophils Absolute Auto 5.1 2.0-8.3 x10*3/u L Imm Gran Abs Auto 0.02 0.00-0.03 X10*3/uL Lymphocytes Absolute Auto 1.4 1.2-4.9 X10*3/u L Monocytes Absolute Auto 0.7 0.1-1.2 X10*3/uL Eosinophils Absolute Auto 0.5 0.0-0.4 X10*3/u L Basophils Absolute Auto 0.1 0.0-0.2 X10*3/uL NRBC Abs Auto 0.000 0.0-0.012 X10*3/uL Comprehensive [place]. Panel [facility] Reviewed date:04/29/2025 05:40:37 AM Interpretation: Performing Lab:[address] [address] Notes/Report: Sodium 141 135-145 mmol/L Potassium 4.5 3.3-5.1 mmol/L Chloride 107 96-108 mmol/L Carbon Dioxide 25 22-29 mmol/L Anion Gap 14 12-20 Blood Urea Nitrogen 22 9-16 mg/dL Creatinine 1.40 0.5-1.4 mg/dL Estimated Glomerular Filt Rate 48 Chronic Kidney Disease: Estimated GFR < 60 mL/min/1.73m2 Severe Kidney Disease: Estimated GFR < 15 mL/min/1.73m2 Glucose Fasting 146 60-99 mg/dL A fasting glucose of 126 mg/dl or greater on more than one occasion is considered diagnostic of diabetes. Calcium 9.2 8.4-10.2 mg/dL Bilirubin Total 0.5 0.0-1.0 mg/dL Aspartate Amino Transferase 25 5-37 U/L Alanine Aminotransferase 19 0-40 U/L Total Protein 6.9 6.5-8.0 g/dL Albumin Level 4.3 3.5-5.0 g/dL Alkaline Phosphatase 55 39-117 U/L Prostate Specific Antigen Reviewed date:04/29/2025 05:40:37 AM Interpretation: Performing Lab:[address] [address] Notes/Report: Prostate Specific Antigen 1.44 <0.05-4.0 ng/mL PSA methodology: Ernandez Alinity i Chemiluminescent Microparticle Immunoassay (CMIA) Diabetic Eye Exam Reviewed date:06/16/2025 10:24:28 AM Interpretation:undefined Performing Lab: Notes/Report: undefined Basic Metabolic Panel (Not y et reviewed by provider) Interpretation: Performing Lab:[address] [place] [address] Notes/Report: Sodium 140 135-145 mmol/L Potassium 4.8 3.3-5.1 mmol/L Chloride 107 96-108 mmol/L Carbon Dioxide 25 22-29 mmol/L Anion Gap 13 12-20 Blood Urea Nitrogen 22 9-16 mg/dL Creatinine 1.54 0.5-1.4 mg/dL Estimated Glomerular Filt Rate 43 Chronic Kidney Disease: Estimated GFR < 60 mL/min/1.73m2 Severe Kidney Disease: Estimated GFR < 15 mL/min/1.73m2 Glucose Random 156 60-115 mg/dL Calcium 9.4 8.4-10.2 mg/dL Reason For Referral No Information Medications Medication [...] 1 tablet Orally Once a day Active Immunizations Vaccine Route Administration Date Status [...] Problem Status W/U Status Risk Notes Problem [id number] Obesity (BMI 30.0-34.9) (E66.9) Active confirmed His [...] restricted in fat calories and sodium. Problem 844488007 Thrombocytopenia (D69.6) Active confirmed His platelets wereto 1 27,000. He has had no bleeding and he is avoiding aspirin. The value will be observed without treatment. No change in his regimen was needed. Problem 247154156 Mixed hyperlipidemia (E78.2) Active confirmed His fasting lipids are currently stable and no change in his regimen was necessary. Problem 742021682 Anticoagulated (Z79.01) Active confirmed Problem 79157441 Essential hypertension (I10) Active confirmed His blood pressure was controlled at 134/80 and no change in his regimen was needed today. I have recommended aggressive weight loss and sodium restriction. Problem 49502249 Atrial fibrillation, unspecified type (I48.91) Active confirmed His heart rate was irrregular today. He was sent for an EKG to determine his rhythm. He was instructed to resume the Multaq and continue the anticoagulatio n. His heart rate is well controlled. Problem 743115473 Benign prostatic hyperplasia, unspecified whether lower urinary tract symptoms present (N40.0) Active confirmed We have discussed lifestyle modifications that could reduce nocturia. He is currently rising between 173 times a night. 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 He has lost 9 pounds. His hemoglobin A1c is 6.8. No change in his regimen was made. Problem [id number] Arthritis of right knee (M17.11) Active confirmed He is completing all of the activities of daily life with his bilateral knee replacements. Vital Signs Heart Rate 98 /min 04/28/2025 Temperature 98.0 degrees Fahrenheit 04/28/2025 Blood pressure diastolic 77 mm Hg 04/28/2025 Height 69 in 04/28/2025 Blood pressure systolic 128 mm Hg 04/28/2025 Weight 207 lbs 04/28/2025 BMI 30.57 kg/m2 04/28/2025 Encounters Encounter Location Date Provider Diagnosis Carlos Alberto Sharpe III, MD [address] [place] [address] [place] [address] 08/29/2024 Carlos Alberto Sharpe 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, unspecified CKD stage, unspecified whether intermediate card tender insulin use E11.22 ; Mixed hyperlipidemia E78.2 ; Benign prostatic hyperplasia, unspecified whether lower urinary tract symptoms present N40.0 ; Essential hypertension I10 ; Arthritis of right knee M17.11 ; Atrial fibrillation, unspecified type I48.91 and Thrombocytopenia D69.6 Carlos Alberto Sharpe III, MD [address] [place] [address] [place] [address] 11/24/2024 Carlos Alberto Sharpe 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, unspecified CKD stage, unspecified whether longterm insulin use E11.22 ; Atrial fibrillation, unspecified type I48.91 ; Essential hypertension I10 ; Mixed hyperlipidemia E78.2 ; Benign prostatic hyperplasia, unspecified whether lower urinary tract symptoms present N40.0 and Obesity (BMI 30.0-34.9) E66.9 Carlos Alberto Sharpe III, MD [address] [place] [address] [place] [address] 12/21/2024 Carlos Alberto Sharpe 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, unspecified CKD stage, unspecified whether intermediate card tender insulin use E11.22 ; Essential hypertension I10 ; Mixed hyperlipidemia E78.2 ; Benign prostatic hyperplasia, unspecified whether lower urinary tract symptoms present N40.0 ; Obesity (BMI 30.0-34.9) E66.9 ; Thrombocytopenia D69.6 and Arthritis of right knee M17.11 Carlos Alberto Sharpe III, MD [address] [place] [address] [place] [address] 04/28/2025 Carlos Alberto Sharpe 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, unspecified CKD stage, unspecified whether longterm insulin use E11.22 ; Benign prostatic hyperplasia, unspecified whether lower urinary tract symptoms present N40.0 ; Mixed hyperlipidemia E78.2 ; Essential hypertension I10 ; Arthritis of right knee M17.11 ; Atrial fibrillation, unspecified type I48.91 ; Anticoagulated Z79.01 and Thrombocytopenia D69.6 Carlos Alberto Sharpe III, MD [address] [place] [address] [place] [address] 10/21/2024 Carlos Alberto Sharpe 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, unspecified CKD stage, unspecified whether intermediate card tender insulin use E11.22 Carlos Alberto Sharpe III, MD [address] [place] [address] [place] [address] 12/06/2024 Carlos Alberto Sharpe III, MD [address] [place] [address] [address] [place], [place] [address] 12/12/2024 Carlos Alberto Sharpe III, MD [address] [place] [address] [place] [address] 12/12/2024 Carlos Alberto Sharpe III, MD [address] [place] [address] [place] [address] 02/13/2025 Carlos Alberto Sharpe Assessments Encounter Date Diagnosis (ICD Code) Assessment Notes Treat ment Notes Treatment Clinical Notes 08/29/2024 Mixed hyperlipidemia (ICD-10 - E78.2) His lipids are currently stable and no change in his regimen was needed. 08/29/2024 Type 2 diabetes mellitus with diabetic chronic kidney disease, unspecified CKD stage, unspecified whether intermediate card tender insulin use (ICD-10 - E11.22) His hemoglobin [...] kidney disease, unspecified CKD stage, unspecified whether longterm insulin use (ICD-10 - E11.22) His hemoglobin [...] disease, unspecified CKD stage, unspecified whether intermediate card tender insulin use (ICD-10 - E11.22) His hemoglobin A1c was 7.3. He is compliant with his medication. He is trying to consume a healthy diabetic diet and lose weight. No change in his regimen was necessary today. 04/28/2025 Benign prostatic hyperplasia, unspecified whether lower urinary tract symptoms present (ICD-10 - N40.0) We have discussed lifestyle modifications that could reduce nocturia. He is currently rising between 173 times a night. 04/28/2025 Type 2 diabetes mellitus with diabetic chronic kidney disease, unspecified CKD stage, unspecified whether intermediate card tender insulin use (ICD-10 - E11.22) He has been compliant with his medication. He has lost 9 pounds. His hemoglobin A1c is 6.8. No change in his regimen was made. 10/21/2024 Type 2 diabetes mellitus with diabetic chronic kidney disease, unspecified CKD stage, unspecified whether intermediate card tender insulin use (ICD-10 - E11.22) His hemoglobin A1c is 7.3. He is compliant with his medication. He is trying to consume a healthy diabetic diet and lose weight. No change in his regimen was necessary today. 08/29/2024 Benign prostatic hyperplasia, unspecified whether lower [...] comprehensive database prior to his next visit. 04/28/2025 Mixed hyperlipidemia (ICD-10 - E78.2) His fasting lipids are currently stable and no change in his regimen was necessary. 08/29/2024 Essential hypertensi on (ICD-10 - I10) [...] his life so they could reduce this. 04/28/2025 Essential hypertensi on (ICD-10 - I10) [...] diet restricted in fat calories and sodium. 04/28/2025 Arthritis of right knee (ICD-10 - [...] No change in his regimen was needed. 04/28/2025 Atrial fibrillation, unspecified type (ICD-10 - I48.91) His heart rate was irrregular today. He was sent for an EKG to determine his rhythm. He was instructed to resume the Multaq and continue the anticoagulation. His heart rate is well controlled. 08/29/2024 Thrombocytopenia (ICD-10 - D69.6) His platelets have improved to 1 27,000. He has had no bleeding and he is avoiding aspirin. The value will be observed without treatment. No change in his regimen was needed. 12/21/2024 Arthritis of right knee (ICD-10 - M17.11) He is completing all of the activities of daily life with his bilateral knee replacements. 04/28/2025 Anticoagulated (ICD- 10 - Z79.01) 04/28/2025 [...] C) 03/31/2022 PROFILE, FASTING (COMPREHENSIVE METABOLI C) 11/26/2023 PROFILE, FASTING (COMPREHENSIVE METABOLI C) 06/27/2021 PROFILE, FASTING (COMPREHENSIVE METABOLI C) 08/26/2023 PROFILE, FASTING (COMPREHENSIVE METABOLI C) 08/29/2024 PROFILE, FASTING (COMPREHENSIVE METABOLI C) 04/28/2025 PROFILE, FASTING (COMPREHENSIVE METABOLI C) 03/25/2021 PROFILE, RANDOM (COMPREHENSIVE METABOLIC ) 11/26/2020 PROFILE, RANDOM (COMPREHENSIVE METABOLIC ) 06/25/2020 HEMOGLOBIN A1C (GLYCOHEMOGLOBIN) 021 HEMOGLOBIN A1C (GLYCOHEMOGLOBIN) 022 HEMOGLOBIN A1C (GLYCOHEMOGLOBIN) 021 HEMOGLOBIN A1C (GLYCOHEMOGLOBIN) 023 HEMOGLOBIN A1C (GLYCOHEMOGLOBIN) 020 HEMOGLOBIN A1C (GLYCOHEMOGLOBIN) 020 LIPID PANEL 08/26/2023 LIPID PANEL 11/26/2020 LIPID PANEL 03/25/2021 LIPID PANEL 04/02/2020 LIPID PANEL 03/31/2022 LIPID PANEL 06/27/2021 PSA, TOTAL 04/28/2025 PSA, TOTAL 11/26/2020 PSA, TOTAL 11/26/2023 PSA, TOTAL 08/29/2024 MICROALBUMIN, RANDOM 06/25/2020 MICROALBUMIN, RANDOM 11/26/2020 MICROALBUMIN, RANDOM 03/31/2022 CBC w DIFF 03/31/2022 CBC w DIFF 06/27/2021 CBC w DIFF 08/26/2023 CBC w DIFF 06/25/2020 CBC w DIFF 03/25/2021 CBC w DIFF 04/02/2020 CBC w DIFF 11/26/2020 CBC w DIFF 11/26/2023 LIPID TOTAL, FECES 06/25/2020 CBC WITH AUTO DIFF 08/29/2024 CBC WITH AUTO DIFF 04/28/2025 Basic Metabolic Panel 08/21/2025 Lipid Panel 11/26/2023 Lipid Panel 08/29/2024 Microalbumin, Random 11/26/2023 Microalbumin, Random 08/26/2023 ECG holter monitor 48 hour 04/22/2023 ECG 12 lead EKG 04/22/2023 ECG 12 lead EKG 11/24/2024 Hemoglobin A1c 08/29/2024 Hemoglobin A1c 11/26/2023 Next Appt Details Provider Name:Carlos Alberto Sharpe , 08/30/2025 10:00:00 AM, [address] [facility] [address] [place], [place], [address], Provider Name:Carlos Alberto Sharpe , 05/01/2026 10:30:00 AM, [address] [facility] [address] [place], [place], [address], Insurance Providers Payer Name Payer Address Payer Phone Subscriber Number Group Number Insured Name Patient Relationship to Insured Coverage Start Date Coverage End Date [facility] [address] [place] [phone] [id number] MINA GOMEZ Self - patient is the insured MEDICARE NGS [address] [place] [phone] [id number] MINA GOMEZ Self - patient is the insured Medical (General) History Medical History History ICD Code essential hypertension adult-onset diabetes mellitus hyperlipidemia osteoarthritis right knee BPH history of cataracts Atrial fibrillation Anticoagulated Surgical History Surgery Date(Month/Year) No history Age 50 Rectal Surgery in [place] Dr. Hue haider Age 30 Failed Vasectomy Age 18 Full upper dentures age 14 upper tooth denture bilateral knee replacentnts 2014 right eye cataract surgery 2019 Hospitalization History Reason Date(Month/Year) No history
== END 2025-08-21 11:14 | disposition home or self-care (01) ==
LOC: HO.HCS 10:39
PROVIDERS: PCP Internal Medicine Medical Oncology; Visit Provider Internal Medicine Cardiovascular Disease
DX: I48.0 Paroxysmal atrial fibrillation (principal); I10 Essential (primary) hypertension
CPT/HCPCS: 93010; 99214; G2211

== ENCOUNTER 2025-08-29 11:33 | Outpatient (REF) | payer MEDICARE, SELFPAY ==
--- OUTSIDE RECORDS SUMMARY | 2024-12-12 11:14 | XMS_ITS ---
Author Organization Carlos Alberto Sharpe III, MD Address [address] [place] [address] [place] [address] Care Team Providers Care Traffic Superintendent Name Role Phone Dr. Carlos Alberto Sharpe III Primary Care Provider REASON FOR VISIT Rx Request Social History Sex Assigned At : Social History Observation Description Sex Assigned At Male Encounters Encounter Location Date Provider Diagnosis Carlos Alberto Sharpe III, MD [address] [place] [address] [place] [address] 12/12/2024 Carlos Alberto Sharpe Plan Of Treatment Next Appt Details Provider Name:Carlos Alberto Sharpe , 08/30/2025 10:00:00 AM, [address] [place] [address] [address] [place], [address], Provider Name:Carlos Alberto Sharpe , 05/01/2026 10:30:00 AM, [address] [place] [address] [place], [address], Progress Notes * HERBER GOMEZDOB: (84 yo M)Acc No.[id number]:12/12/2024 Patient: HERBER VERDUZCO :1940 A ge:84 Y S ex:Male Address:[place], [address] * true * Date: Generated for Printi ng/Faxing/eTransmitting on: 0 08/29/2025 01:02 PM EDT
--- OUTSIDE RECORDS SUMMARY | 2024-12-12 12:37 | XMS_ITS ---
Author Organization Carlos Alberto Sharpe III, MD Address [address] [facility] [place] [address] Care Team Providers Care Community Engagement Coordinator Name Role Phone Dr. Carlos Alberto Sharpe III Primary Care Provider Medications Medication SIG (Take, Route, Frequency, Duration) Notes Start Date End Date Status Clindamycin HCl 300 MG 2 capsules Orally in am before dental work for 1 days 12/12/2024 12/24/2024 Active Social History Sex Assigned At : Social History Observation Description Sex Assigned At Male Encounters Encounter Location Date Provider Diagnosis Carlos Alberto Sharpe III, MD [address] [place] [address] [place] [address] 12/12/2024 Carlos Alberto Sharpe Plan Of Treatment Medication Medication Name Sig Start Date Stop Date Notes Clindamycin HCl 300 MG 2 capsules Orally in am before dental work for 1 days 12/12/2024 12/24/2024 Next Appt Details Provider Name:Carlos Alberto Sharpe , 08/30/2025 10:00:00 AM, [address] [place] [address] [place], [address], Provider Name:Carlos Alberto Sharpe , 05/01/2026 10:30:00 AM, [address] [place] [address] [place], [address], Progress Notes * MINA GOMEZDOB: [birth year] (84 yo M)Acc No.[id number]:12/12/2024 Patient: C REVIER, MINA :1940 A ge:84 Y S ex:Male Address:[address] [place], [place] [address], [address] * Refills Start Clindamycin HCl Capsule, 300 MG, Orally, 2, 2 capsules, in am before dental work, 1 days, Refills=11 * true * Date: Generated for Coreen chaudhry/Ash/Ethanitting on: 0 08/29/2025 01:02 PM EDT
--- OUTSIDE RECORDS SUMMARY | 2024-12-21 07:15 | XMS_ITS ---
Author Organization Carlos Alberto Sharpe III, MD Address [address] [place] [address] [place] [address] Care Team Providers Care Cable Operator Name Role Phone Dr. Carlos Alberto Sharpe III Primary Care Provider [phone] Allergies Allergen (clinical drug ingredient) Drug/Non Drug [...] Problem Status W/U Status Risk Notes Problem [id number] Anticoagulated (Z79.01) Active confirmed Vital Signs Heart Rate 90.0 /min 12/21/2024 Height 69 in 12/21/2024 Weight 216 lbs 12/21/2024 BMI 31.89 kg/m2 12/21/2024 Encounters Encounter Location Date Provider Diagnosis Carlos Alberto Sharpe III, MD [address] [place] [address] [place], [place] [address] 12/21/2024 Carlos Alberto Sharpe 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, unspecified CKD stage, unspecified whether longwall shearer operator insulin use E11.22 ; Essential hypertension I10 [...] kidney disease, unspecified CKD stage, unspecified whether longwall shearer operator insulin use (ICD-10 - E11.22) His hemoglobin [...] Name:Carlos Alberto Sharpe , 08/30/2025 10:00:00 AM, [address] [place] [address] [address], [place], [address], Provider Name:Carlos Alberto Sharpe , 05/01/2026 10:30:00 AM, [address] [place] [address] [address], [place], [address], Progress Notes * MINA GOMEZDOB: [birth year] (84 yo M)Acc No.[id number]:12/21/2024 Patient: MINA VERDUZCO Provider: Brandie Sharpe MD :1940 A ge:84 Y S ex:Male Date:12/21/2024 Address:[address] [phone] Subjective: * Chief Complaints: * P ersistent atrial fibrillationDiabetesHypertensionHyperlipidemiaBenign prostatic hypertrophyObesity * HPI: * : Telehealth L ocation of provider rendering services: { ...} [address] [place] [address] [address] [facility] [address] L ocation of patient: axel rogel listed [...] it. He has an appointment with a cardiovascular specialist in a few weeks. * ROS: G [...] Failed Vasectomy Age 50 Rectal Surgery in [place] Dr. Johnson No history * Hospitalization/Major Diagno [...] had multiple sclerosis. 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
--- OUTSIDE RECORDS SUMMARY | 2025-02-13 06:48 | XMS_ITS ---
Author Organization Carlos Alberto Sharpe III, MD Address [address] [place] [address] [place] [address] Care Team Providers Care Cloth Printer Helper Name Role Phone Dr. Carlos Alberto Sharpe III Primary Care Provider REASON FOR VISIT HCC Risk Codes Social History Sex Assigned At : Social History Observation Description Sex Assigned At Male Encounters Encounter Location Date Provider Diagnosis Carlos Alberto Sharpe III, MD [address] [place] [address] [place] [address] 02/13/2025 Carlos Alberto Sharpe Plan Of Treatment Next Appt Details Provider Name:Carlos Alberto Sharpe , 08/30/2025 10:00:00 AM, [address] [place] [address] [place], [address], Provider Name:Carlos Alberto Sharpe , 05/01/2026 10:30:00 AM, [address] [place] [address] [place], [address], Progress Notes * MINA GOMEZDOB: (84 yo M)Acc No.[id number]:02/13/2025 Patient: MINA VERDUZCO :1940 A ge:84 Y S ex:Male Address:[address] [facility] [place], [address] * true * Date: Generated for Printi ng/Faxing/eTransmitting on: 0 08/29/2025 01:02 PM EDT
--- OUTSIDE RECORDS SUMMARY | 2025-04-28 06:30 | XMS_ITS ---
Author Organization Carlos Alberto Sharpe III, MD Address [address] [place] [address] Care Team Providers Care Shade Classifier Name Role Phone Dr. Carlos Alberto Sharpe III Primary Care Provider [phone] Allergies Allergen (clinical drug ingredient) Drug/Non Drug Allergy documented on EMR Reaction Allergy Type Onset Date Status amoxicillin Amoxicillin Unknown Drug Allergy Act nancy Results Component Value Reference Range Notes URINE DIP STICK Reviewed date:04/29/2025 05:40:37 AM Interpretation:Abnormal Performing Lab: Notes/Report: Abnormal SG 1.010 1.005 - 1.025 pH 5.0 5.0 - 9.0 MIR 125 Negative - NIT neg Negative - PRO trace Negative - Trace GLU neg Negative - KET neg Negative - UBG 0.2 0.1 - 1.8 ROME neg 0.2 - 1.3 BLD neg Negative - Menstrating N/A Lipid Panel Reviewed date:04/29/2025 05:40:37 AM Interpretation: Performing Lab:[facility], [address] [place] [id number] Notes/Report: Triglycerides 70 <150 mg/dL Desirable Triglyceride: less than 150 mg/dL Borderline High Triglyceride 150-199 mg/dL High Triglyceride: 200-499 mg/dL Very High Triglyceride: greater than or equal to 5OO mg/dL Cholesterol 124 <200 mg/dL Desirable Cholesterol: less than 200 mg/dL Borderline High Cholesterol: 200-239 mg/dL High Cholesterol: greater than 239 mg/dL LDL Cholesterol Calculated 61 <100 mg/dL Desirable LDL: less than 100 mg/dL Near Optimal/Above Optimal LDL: 110-129 mg/dL Borderline High LDL: 130-159 mg/dL High LDL: 160-189 mg/dL Very High LDL: greater than or equal to 190 mg/dL HDL Cholesterol 49 >40 mg/dL Desirable HDL: greater than 40 mg/dL Note: This HDL assay may give artificially low results in patients with liver disease. Microalbumin, Random Reviewed date:04/29/2025 05:40:37 AM Interpretation: Performing Lab:[address] [id number] Notes/Report: Creatinine Urine 118.42 Microalbumin Urine 6.0 Microalbum/Creatinine Ratio Ur 5.0 <30 ug/mg cr Albumin/Creatinine Ratio Reference Ranges: Normal: < 30 ug/mg creatinine Microalbuminuria: 30 - 300 ug/mg creatinine Clinical Albuminuria: > 300 ug/mg creatinine Hemoglobin A1c Reviewed date:04/29/2025 05:40:37 AM Interpretation: Performing Lab:[address] [phone] Notes/Report: Hemoglobin A1c % 6.8 <6.0 % Hemoglobin A1C Reference Range Adults: 4.8 - 6.0 % Non diabetic: < 6.0 % Goal: < 7.0 % Additional Action Suggested: > 8.0 % Note: Hemoglobin A1c results are invalid for patients with abnormal amounts of HbF. Blood transfusions may impact the HbA1c concentration in the patient sample. Estimated Average Glucose 148 eAG = Estimated average glucose which is %A1C expressed as average glucose, using the formula of the N2L-Aoqepbj Average Glucose study (ADAG), Diabetes Care, Vol.31,#8, Jun. 2007 REASON FOR VISIT annual exam Medications Medication SIG (Take, Route, Frequency, Duration) Notes Start Date End Date Status metFORMIN HCl ER 500 MG TAKE 1 TABLET BY MOUTH ONCE DAILY WITH EVENING MEAL Active Lisinopril 40 MG Take 1 tablet by christie th once daily Active amLODIPine Besylate 10 MG Take 1 tablet by mouth once daily Active Clindamycin HCl 300 MG 2 capsules Orally in am before dental work 12/12/2024 Active Triamcinolone Acetonide 0.1 % 1 application Externally Twice a day 03/31/2022 Active Eliquis 5 MG TAKE 1 TABLET BY CHRISTIE TH TWICE DAILY Oral Active Multaq 400 MG 1 tablet with meals Orally Twice a day Active Pravastatin Sodium 40 MG 1 tablet Orally Once a day Active Social History Tobacco Use: Social History Observation Description Date Details (start date - stop date) Never Smoker NA - NA Sex Assigned At : Social History Observation Description Sex Assigned At Male Tobacco Use/Smoking Question Answer Notes Patient is a nonsmoker Additional Findings: Tobacco Non-User Aggressive non-smoker Vital Signs Temperature 98.0 degrees Fahrenheit 04/28/20 25 Blood pressure systolic 128 mm Hg 04/28/20 25 Blood pressure diastolic 77 mm Hg 025 Heart Rate 98 /min 04/28/2025 Height 69 in 04/28/2025 Weight 207 lbs 04/28/2025 BMI 30.57 kg/m2 04/28/2025 Encounters Encounter Location Date Provider Diagnosis Carlos Alberto Sharpe III, MD [address] [place] [address] [place] [address] 04/28/2025 Carlos Alberto Sharpe 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, unspecified CKD stage, unspecified whether fdc insulin use E11.22 ; Benign prostatic hyperplasia, unspecified whether lower urinary tract symptoms present N40.0 ; Mixed hyperlipidemia E78.2 ; Essential hypertension I10 ; Arthritis of right knee M17.11 ; Atrial fibrillation, unspecified type I48.91 ; Anticoagulated Z79.01 and Thrombocytopenia D69.6 Assessments Encounter Date Diagnosis (ICD Code) Assessment Notes Treat ment Notes Treatment Clinical Notes 04/28/2025 Type 2 diabetes mellitus with diabetic chronic kidney disease, unspecified CKD stage, 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 He has lost 9 pounds. His hemoglobin A1c is 6.8. No change in his regimen was made. 04/28/2025 Benign prostatic hyperplasia, unspecified whether lower urinary tract symptoms present (ICD-10 - N40.0) We have discussed lifestyle modifications that could reduce nocturia. He is currently rising between 173 times a night. 04/28/2025 Mixed hyperlipidemia (ICD-10 - E78.2) His fasting lipids are currently stable and no change in his regimen was necessary. 04/28/2025 Essential hypertensi on (ICD-10 - I10) His blood pressure was controlled at 134/80 and no change in his regimen was needed today. I have recommended aggressive weight loss and sodium restriction. 04/28/2025 Arthritis of right knee (ICD-10 - M17.11) He is completing all of the activities of daily life with his bilateral knee replacements. 04/28/2025 Atrial fibrillation, unspecified type (ICD-10 - I48.91) His heart rate was irrregular today. He was sent for an EKG to determine his rhythm. He was instructed to resume the Multaq and continue the anticoagulation. His heart rate is well controlled. 04/28/2025 Anticoagulated (ICD- 10 - Z79.01) 04/28/2025 Thrombocytopenia (ICD-10 - D69.6) His platelets wereto 1 27,000. He has had no bleeding and he is avoiding aspirin. The value will be observed without treatment. No change in his regimen was needed. Plan Of Treatment Medication Medication Name Sig Start Date Stop Date Notes metFORMIN HCl ER 500 MG TAKE 1 TABLET BY MOUTH ONCE DAILY WITH EVENING MEAL Lisinopril 40 MG Take 1 tablet by christie th once daily amLODIPine Besylate 10 MG Take 1 tablet by mouth once daily Clindamycin HCl 300 MG 2 capsules Orally in am before dental work 12/12/2024 Triamcinolone Acetonide 0.1 % 1 applicat ion Externally Twice a day 03/31/2022 Eliquis 5 MG TAKE 1 TABLET BY CHRISTIE TH TWICE DAILY Oral Multaq 400 MG 1 tablet with meals Orally Twice a day Pravastatin Sodium 40 MG 1 tablet Orally Once a day Pending Test Test Name Order Date PROFILE, FASTING (COMPREHENSIVE METABOLI C) 04/28/2025 PSA, TOTAL 04/28/2025 CBC WITH AUTO DIFF 04/28/2025 Next Appt Details Follow Up: 4 Months, Reason: OV Provider Name:Carlos Alberto Sharpe , 08/30/2025 10:00:00 AM, [address] [place] [address] [address], [place], [address], Provider Name:Carlos Alberto Sharpe , 05/01/2026 10:30:00 AM, [address] [place] [address] [address], [place], [address], Progress Notes * MINA GOMEZDOB: [birth year] (84 yo M)Acc No.[id number]:04/28/2025 Progress Notes Patient: MINA VERDUZCO Provider: Brandie Sharpe MD :1940 A ge:84 Y S ex:Male Date:04/28/2025 Address:[address] [id number] Subjective: * Chief Complaints: * A nnual exam * HPI: D epression Screening: He returns to the office at the age of 84 for his annual physical examination. He has been rising from sleep twice a night to urinate. He feels generally healthy and well. His has been well.His diabetes has been controlled. He has been compliant with all of his medications. His blood pressure was stable today. The pain in his right knee is unchanged. However, he is able to walk and conduct all of the activities of daily life. He is trying to consume a healthy diet and not gaining weight. PHQ-9 L ittle interest or pleasure in doing things?Not at all F eeling down, depressed, or hopeless N ot at all T rouble falling or staying asleep, or sleeping too much N ot at all F eeling tired or having little energy S everal days P oor appetite or overeating N ot at all F eeling bad about yourself or that you are a failure, or have let yourself or your family down N ot at all T rouble concentrating on things, such as reading the newspaper or watching television N ot at all M oving or speaking so slowly that other people could have noticed; or the opposite, being so fidgety or restless that you have been moving around a lot more than usual N ot at all T houghts that you would be better off or of hurting yourself in some way N ot at all T otal Score 1 I nterpretation M inimal Depression C OVID-19 Screening: tickly cough since home a week from [facility] in [place], card gave him mjultaq. Questions H ave you had any new onset fever, chills, cough, congestion, sore throat, shortness of breath, muscle aches? N o S SATNAM Questions: SDOH Questions I n the past year have you been worried about losing your housing? N o I n the past year have you or any family members you live with been unable to get any of the following when it was really needed? Check all that apply: N one * ROS: G eneral/Constitutional: pain R ight knee. C hills d enies. F atigue?admits. F ever d enies. E NT: Decreased hearing d enies. R espiratory: Cough d enies. C ardiovascular: Chest pain with exertion d enies. D yspnea on exertion?denies. S hortness of breath d enies. G astrointestinal: Constipation d enies. D ecreased appetite d enies.?Diarrhea d enies. H eartburn d enies. N ausea d enies. R ectal bleeding?denies. V omiting d enies. H ematology: bruising d enies. p etechiae d enies. S wollen glands n one have been noted. G enitourinary: Frequent urination t wice a night. M usculoskeletal: Muscle aches d enies. P ainful joints R ight knee.?Sciatica d enies. W eakness d enies. S [...] Failed Vasectomy Age 50 Rectal Surgery in [place] Dr. Johnson No history * Hospitalization/Major Diagno [...] had multiple sclerosis. 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 His 2 children and 4 grandsons are healthy. * Medications: T akingMultaq 400 MG Tablet 1 tablet with meals Orally Twice a day Clindamycin HCl 300 MG Capsule 2 capsules Orally in am before dental work Triamcinolone Acetonide 0.1 % Cream 1 application Externally Twice a day Lisinopril 40 MG Tablet Take 1 tablet by mouth once daily amLODIPine Besylate 10 MG Tablet Take 1 tablet by mouth once daily Eliquis 5 MG Tablet TAKE 1 TABLET BY MOUTH TWICE DAILY Oral metFORMIN HCl ER 500 MG Tablet Extended Release 24 Hour TAKE 1 TABLET BY MOUTH ONCE DAILY WITH EVENING MEAL Pravastatin Sodium 40 MG Tablet 1 tablet Orally Once a day Medication List reviewed and reconciled with the patientTaking Multaq 400 MG Tablet 1 tablet with meals Orally Twice a day Taking Clindamycin HCl 300 MG Capsule 2 capsules Orally in am before dental work Taking Triamcinolone Acetonide 0.1 % Cream 1 application Externally Twice a day Taking Lisinopril 40 MG Tablet Take 1 tablet by mouth once daily Taking amLODIPine Besylate 10 MG Tablet Take 1 tablet by mouth once daily Taking Eliquis 5 MG Tablet TAKE 1 TABLET BY MOUTH TWICE DAILY Oral Taking metFORMIN HCl ER 500 MG Tablet Extended Release 24 Hour TAKE 1 TABLET BY MOUTH ONCE DAILY WITH EVENING MEAL Taking Pravastatin Sodium 40 MG Tablet 1 tablet Orally Once a day Medication List reviewed and reconciled with the patient * Allergies: A moxicillinno[Allergies Verified] Objective: * Vitals: H t: 69, Wt:207, BMI:30.57, BP:128/77, HR:98, Temp:98.0, Ht-cm: 175.26, Wt-k.89. * P ast Orders: Lab:Prostate Specific Antige n * Collection Date 04/28/2025 04/20/2024 03/23/2021 Collection Time 11:05 AM 10:40 AM 08:23 AM Order Date 04/28/2025 04/20/2024 03/23/2021 Prostate Specific Antigen 1.44 (Ref Range: <0.05-4.0 ng/mL) 1.32 (Ref Range: <0.05-4.0 ng/mL) 1.06 (Ref Range: <0.05-4.0 ng/mL) * Lab:Lipid Panel * Collection Date 04/28/2025 08/22/2024 04/20/2024 Collection Time 11:05 AM 10:40 AM 10:40 AM Order Date 04/28/2025 08/22/2024 04/20/2024 Triglycerides 70 (Ref Range: <150 mg/dL) 89 (Ref Range: <150 mg/dL) 92 (Ref Range: <150 mg/dL) Cholesterol 124 (Ref Range: <200 mg/dL) 140 (Ref Range: <200 mg/dL) 157 (Ref Range: <200 mg/dL) LDL Cholesterol Calculated 61 (Ref Range: <100 mg/dL) 70 (Ref Range: <100 mg/dL) 85 (Ref Range: <100 mg/dL) HDL Cholesterol 49 (Ref Range: >40 mg/dL) 53 (Ref Range: >40 mg/dL) 54 (Ref Range: >40 mg/dL) Clinical Info: Please fast for 12-1 4 hours prior to having this labwork done. You may have black coffee or tea with no milk or sugar. May have water,PLEASE FAX COMPLETED RESULTS TO [phone] * Lab:Microalbumin, Random * Collection Date 04/28/2025 08/22/2024 04/20/2024 Collection Time 11:05 AM 10:40 AM 10:35 AM Order Date 04/28/2025 08/22/2024 04/20/2024 Creatinine Urine 118.42 (Ref Range: mg/dL) 110.76 (Ref Range: mg/dL) 109.79 (Ref Range: mg/dL) Microalbumin Urine 6.0 (Ref Range: mg/L) 7.0 (Ref Range: mg/L) < 5.0 (Ref Range: mg/L) Microalbum Creatinine Ratio Ur 5.0 (Ref Range: <30 ug/mg cr) 6.3 (Ref Range: <30 ug/mg cr) TNP (Ref Range: <30 ug/mg cr) Clinical Info: Please fast for 12-1 4 hours prior to having this labwork done. You may have black coffee or tea with no milk or sugar. May have water,PLEASE FAX COMPLETED RESULTS TO [phone] * Lab:Hemoglobin A1c * Collection Date 04/28/2025 08/22/2024 04/20/2024 Collection Time 11:05 AM 10:40 AM 10:40 AM Order Date 04/28/2025 08/22/2024 04/20/2024 Hemoglobin A1c % 6.8 H (Ref Range: <6.0 %) 7.3 H (Ref Range: <6.0 %) 7.5 H (Ref Range: <6.0 %) Estimated Average Glucose 148 (Ref Range: mg/dL) 163 (Ref Range: mg/dL) 169 (Ref Range: mg/dL) Clinical Info: Please fast for 12-1 4 hours prior to having this labwork done. You may have black coffee or tea with no milk or sugar. May have water,PLEASE FAX COMPLETED RESULTS TO [phone] * Lab:Complete Blood Count Aut o Diff * Collection Date 04/28/2025 08/22/2024 04/20/2024 Collection Time 11:05 AM 10:40 AM 10:40 AM Order Date 04/28/2025 08/22/2024 04/20/2024 White Blood Count 7.8 (Ref Range: 4.8-10.8 X10*3/uL) 7.0 (Ref Range: 4.8-10.8 X10*3/uL) 6.3 (Ref Range: 4.8-10.8 X10*3/uL) Red Blood Count 4.29 L (Ref Range: 4.60-5.80 X10*6/uL) 4.67 (Ref Range: 4.60-5.80 X10*6/uL) 4.69 (Ref Range: 4.60-5.80 X10*6/uL) Hemoglobin 13.3 L (Ref Range: 14.0-18.0 g/dl) 14.3 (Ref Range: 14.0-18.0 g/dl) 14.3 (Ref Range: 14.0-18.0 g/dl) Hematocrit 40.0 L (Ref Range: 42.0-52.0 %) 42.7 (Ref Range: 42.0-52.0 %) 43.4 (Ref Range: 42.0-52.0 %) Mean Corpuscular Volume 93.2 (Ref Range: 80.0-98.0 fL) 91.4 (Ref Range: 80.0-98.0 fL) 92.5 (Ref Range: 80.0-98.0 fL) Mean Corpuscular Hemoglobin 31.0 (Ref Range: 27.0-33.0 pg) 30.6 (Ref Range: 27.0-33.0 pg) 30.5 (Ref Range: 27.0-33.0 pg) Mean Corpuscular HGB Conc 33.3 (Ref Range: 31.0-36.0 g/dl) 33.5 (Ref Range: 31.0-36.0 g/dl) 32.9 (Ref Range: 31.0-36.0 g/dl) Red Cell Distribution Width 13.0 (Ref Range: 11.0-16.0 %) 12.9 (Ref Range: 11.0-16.0 %) 13.5 (Ref Range: 11.0-16.0 %) Platelet Count 168 (Ref Range: 160-400 X10*3/uL) 127 L (Ref Range: 160-400 X10*3/uL) 114 L (Ref Range: 160-400 X10*3/uL) Mean Platelet Volume 12.8 H (Ref Range: 9.4-12.4 fL) 12.8 H (Ref Range: 9.4-12.4 fL) 12.3 (Ref Range: 9.4-12.4 fL) Neutrophils Percent Auto 65.5 (Ref Range: 45-73 %) 65.5 (Ref Range: 45-73 %) 53.4 (Ref Range: 45-73 %) Imm Gran Pct Auto 0.3 (Ref Range: 0.0-0.4 %) 0.3 (Ref Range: 0.0-0.4 %) 0.3 (Ref Range: 0.0-0.4 %) Lymphocytes Percent Auto 18.1 L (Ref Range: 20-40 %) 20.2 (Ref Range: 20-40 %) 26.5 (Ref Range: 20-40 %) Monocytes Percent Auto 8.8 (Ref Range: 2-11 %) 8.3 (Ref Range: 2-11 %) 8.7 (Ref Range: 2-11 %) Eosinophils Percent Auto 6.5 H (Ref Range: 0-4 %) 4.8 H (Ref Range: 0-4 %) 10.0 H (Ref Range: 0-4 %) Basophils Percent Auto 0.8 (Ref Range: 0-2 %) 0.9 (Ref Range: 0-2 %) 1.1 (Ref Range: 0-2 %) NRBC Pct Auto 0.0 (Ref Range: 0.0-0.2 /100WBC) 0.0 (Ref Range: 0.0-0.2 /100WBC) 0.0 (Ref Range: 0.0-0.2 /100WBC) Neutrophils Absolute Auto 5.1 (Ref Range: 2.0-8.3 x10*3/uL) 4.6 (Ref Range: 2.0-8.3 x10*3/uL) 3.4 (Ref Range: 2.0-8.3 x10*3/uL) Imm Gran Abs Auto 0.02 (Ref Range: 0.00-0.03 X10*3/uL) 0.02 (Ref Range: 0.00-0.03 X10*3/uL) 0.02 (Ref Range: 0.00-0.03 X10*3/uL) Lymphocytes Absolute Auto 1.4 (Ref Range: 1.2-4.9 X10*3/uL) 1.4 (Ref Range: 1.2-4.9 X10*3/uL) 1.7 (Ref Range: 1.2-4.9 X10*3/uL) Monocytes Absolute Auto 0.7 (Ref Range: 0.1-1.2 X10*3/uL) 0.6 (Ref Range: 0.1-1.2 X10*3/uL) 0.6 (Ref Range: 0.1-1.2 X10*3/uL) Eosinophils Absolute Auto 0.5 H (Ref Range: 0.0-0.4 X10*3/uL) 0.3 (Ref Range: 0.0-0.4 X10*3/uL) 0.6 H (Ref Range: 0.0-0.4 X10*3/uL) Basophils Absolute Auto 0.1 (Ref Range: 0.0-0.2 X10*3/uL) 0.1 (Ref Range: 0.0-0.2 X10*3/uL) 0.1 (Ref Range: 0.0-0.2 X10*3/uL) NRBC Abs Auto 0.000 (Ref Range: 0.0-0.012 X10*3/uL) 0.000 (Ref Range: 0.0-0.012 X10*3/uL) 0.000 (Ref Range: 0.0-0.012 X10*3/uL) * Lab:[facility]is. Dylan l Fast * Collection Date 04/28/2025 08/22/2024 04/20/2024 Collection Time 11:05 AM 10:40 AM 10:40 AM Order Date 04/28/2025 08/22/2024 04/20/2024 Sodium 141 (Ref Range: 135-145 mmol/L) 142 (Ref Range: 135-145 mmol/L) 138 (Ref Range: 135-145 mmol/L) Bilirubin Total 0.5 (Ref Range: 0.0-1.0 mg/dL) 0.5 (Ref Range: 0.0-1.0 mg/dL) 0.6 (Ref Range: 0.0-1.0 mg/dL) Aspartate Amino Transferase 25 (Ref Range: 5-37 U/L) 18 (Ref Range: 5-37 U/L) 20 (Ref Range: 5-37 U/L) Alanine Aminotransferase 19 (Ref Range: 0-40 U/L) 16 (Ref Range: 0-40 U/L) 17 (Ref Range: 0-40 U/L) Total Protein 6.9 (Ref Range: 6.5-8.0 g/dL) 7.0 (Ref Range: 6.5-8.0 g/dL) 6.9 (Ref Range: 6.5-8.0 g/dL) Albumin Level 4.3 (Ref Range: 3.5-5.0 g/dL) 4.3 (Ref Range: 3.5-5.0 g/dL) 4.0 (Ref Range: 3.5-5.0 g/dL) Alkaline Phosphatase 55 (Ref Range: 39-117 U/L) 52 (Ref Range: 39-117 U/L) 47 (Ref Range: 39-117 U/L) Potassium 4.5 (Ref Range: 3.3-5.1 mmol/L) 4.1 (Ref Range: 3.3-5.1 mmol/L) 4.7 (Ref Range: 3.3-5.1 mmol/L) Chloride 107 (Ref Range: 96-108 mmol/L) 108 (Ref Range: 96-108 mmol/L) 106 (Ref Range: 96-108 mmol/L) Carbon Dioxide 25 (Ref Range: 22-29 mmol/L) 26 (Ref Range: 22-29 mmol/L) 23 (Ref Range: 22-29 mmol/L) Anion Gap 14 (Ref Range: 12-20) 12 (Ref Range: 12-20) 14 (Ref Range: 12-20) Blood Urea Nitrogen 22 H (Ref Range: 9-16 mg/dL) 19 H (Ref Range: 9-16 mg/dL) 18 H (Ref Range: 9-16 mg/dL) Creatinine 1.40 (Ref Range: 0.5-1.4 mg/dL) 1.23 (Ref Range: 0.5-1.4 mg/dL) 1.23 (Ref Range: 0.5-1.4 mg/dL) Estimated Glomerular Filt Rate 48 56 56 Glucose Fasting 146 H (Ref Range: 60-99 mg/dL) 143 H (Ref Range: 60-99 mg/dL) 158 H (Ref Range: 60-99 mg/dL) Calcium 9.2 (Ref Range: 8.4-10.2 mg/dL) 9.3 (Ref Range: 8.4-10.2 mg/dL) 9.2 (Ref Range: 8.4-10.2 mg/dL) * Lab:URINE DIP STICK * Collection Date 04/28/2025 04/27/2024 04/22/2023 Collection Time 10:51 AM Order Date 04/28/2025 04/27/2024 04/22/2023 Result: Abnormal SG 1.010 (Ref Range: 1.005 - 1.025) 1.020 (Ref Range: 1.005 - 1.025) 1.020 (Ref Range: 1.005 - 1.025) pH 5.0 (Ref Range: 5.0 - 9.0) 5.0 (Ref Range: 5.0 - 9.0) 5.0 (Ref Range: 5.0 - 9.0) MIR 125 (Ref Range: Negative -) 125 (Ref Range: Negative -) Negative (Ref Range: Negative -) NIT neg (Ref Range: Negative -) Negative (Ref Range: Negative -) Negative (Ref Range: Negative -) PRO trace (Ref Range: Negative - Trace) 15 (Ref Range: Negative - Trace) 15 (Ref Range: Negative - Trace) GLU neg (Ref Range: Negative -) Negative (Ref Range: Negative -) Negative (Ref Range: Negative -) KET neg (Ref Range: Negative -) Negative (Ref Range: Negative -) Negative (Ref Range: Negative -) UBG 0.2 (Ref Range: 0.1 - 1.8) 0.2 (Ref Range: 0.1 - 1.8) 0..2 (Ref Range: 0.1 - 1.8) ROME neg (Ref Range: 0.2 - 1.3) 1 (Ref Range: 0.2 - 1.3) Negative (Ref Range: 0.2 - 1.3) BLD neg (Ref Range: Negative -) Negative (Ref Range: Negative -) Negative (Ref Range: Negative -) Menstrating N/A N/A N/A * Examination: G eneral Examination: GENERAL APPEARANCE: p leasant, well nourished, well developed, in no acute distress, calm and relaxed, obese, man. HEAD: a traumatic, normocephalic. EYES: e rocky, perrla, anicteric, conjugate. EARS: n ormal. NOSE: s eptum intact. ORAL CAVITY: n ormal, unremarkable. NECK/THYROID: n o jugular venous distention, no carotid bruit, thyroid normal. LYMPH NODES: n o enlarged lymph nodes,spleen normal. SKIN: n o suspicious lesions, anicteric. HEART: n o clicks, gallops, murmurs, or rubs, irregular rhythm, S1, S2 normal, no s3, or vascular bruits. LUNGS: c lear to auscultation . BREASTS: no masses palpable bilaterally. ABDOMEN: b owel sounds normal, no ascites, no organomegaly, no mass, centripital obesity. RECTAL EXAM: n ot examined. MUSCULOSKELETAL: e xtremities unremarkable, no clubbing, cyanosis or edema. PERIPHERAL PULSES: n ormal. NEUROLOGIC: a lert and oriented, cranial nerves 2-12 grossly intact, deep tendon reflexes 2+ symmetrical, motor strength normal upper and lower extremities, sensory exam intact. PSYCH: a lert, oriented. Assessment: * Assessment: 1. 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 He has lost 9 pounds. His hemoglobin A1c is 6.8. No change in his regimen was made. 2 . B enign prostatic hyperplasia, unspecified whether lower urinary tract symptoms present - N40.0 N otes :We have discussed lifestyle modifications that could reduce nocturia. He is currently rising between 173 times a night. 3 . M ixed hyperlipidemia - E78.2 N otes :His fasting lipids are currently stable and no change in his regimen was necessary. 4 . E ssential hypertension - I10 N otes :His blood pressure was controlled at 134/80 and no change in his regimen was needed today. I have recommended aggressive weight loss and sodium restriction. 5 . A rthritis of right knee - M17.11 N otes :He is completing all of the activities of daily life with his bilateral knee replacements. 6 . A trial fibrillation, unspecified type - I48.91 N otes :His heart rate was irrregular today. He was sent for an EKG to determine his rhythm. He was instructed to resume the Multaq and continue the anticoagulation. His heart rate is well controlled. 7 . A nticoagulated - Z79.01 8 . T hrombocytopenia - D69.6? Notes :His platelets wereto 1 27,000. He has had no bleeding and he is avoiding aspirin. The value will be observed without treatment. No change in his regimen was needed. Plan: * Treatment: Value Reference Range S G 1.010 1.005 - 1.025 * p H 5.0 5.0 - 9.0 * L EU 125 Negative - * N IT neg Negative - * P RO trace Negative - Trace * G OZ neg Negative - * K ET neg Negative - * U BG 0.2 0.1 - 1.8 * B IL neg 0.2 - 1.3 * B LD neg Negative - * M enstrating N/A ?LAB: Lipid Panel (Collection Date & Time - 04/28/2025 11:05 AM)* Value Reference Range T riglycerides 70 <150 - mg/dL * C holesterol 124 <200 - mg/dL * L DL Cholesterol Calculated 61 <100 - mg/dL * H DL Cholesterol 49 >40 - mg/dL ?LAB: Microalbumin, Random (Collection Date & Time - 04/28/2025 11:05 AM)* Value Reference Range C reatinine Urine 118.42 - mg/dL * M icroalbumin Urine 6.0 - mg/L * M icroalbum Creatinine Ratio Ur 5.0 <30 - ug/m g cr ?LAB: Hemoglobin A1c (Collection Date & Time - 04/28/2025 11:05 AM)* Value Reference Range H emoglobin A1c % 6.8 H <6.0 - % * E stimated Average Glucose 148 - mg/dL 2.?Benign prostatic hyperplasia, unspecified whether lower urinary tract symptoms present?LAB: PROFILE, FASTING (COMPREHENSIVE METABOLIC) ?LAB: PSA, TOTAL ?LAB: CBC WITH AUTO DIFF ?LAB: Lipid Panel (Collection Date & Time - 04/28/2025 11:05 AM)* Value Reference Range T riglycerides 70 <150 - mg/dL * C holesterol 124 <200 - mg/dL * L DL Cholesterol Calculated 61 <100 - mg/dL * H DL Cholesterol 49 >40 - mg/dL ?LAB: Microalbumin, Random (Collection Date & Time - 04/28/2025 11:05 AM)* Value Reference Range C reatinine Urine 118.42 - mg/dL * M icroalbumin Urine 6.0 - mg/L * M icroalbum Creatinine Ratio Ur 5.0 <30 - ug/m g cr ?LAB: Hemoglobin A1c (Collection Date & Time - 04/28/2025 11:05 AM)* Value Reference Range H emoglobin A1c % 6.8 H <6.0 - % * E stimated Average Glucose 148 - mg/dL 3.?Mixed hyperlipidemia?LAB: PROFILE, FASTING (COMPREHENSIVE METABOLIC) ?LAB: PSA, TOTAL ?LAB: CBC WITH AUTO DIFF ?LAB: Lipid Panel (Collection Date & Time - 04/28/2025 11:05 AM)* Value Reference Range T riglycerides 70 <150 - mg/dL * C holesterol 124 <200 - mg/dL * L DL Cholesterol Calculated 61 <100 - mg/dL * H DL Cholesterol 49 >40 - mg/dL ?LAB: Microalbumin, Random (Collection Date & Time - 04/28/2025 11:05 AM)* Value Reference Range C reatinine Urine 118.42 - mg/dL * M icroalbumin Urine 6.0 - mg/L * M icroalbum Creatinine Ratio Ur 5.0 <30 - ug/m g cr ?LAB: Hemoglobin A1c (Collection Date & Time - 04/28/2025 11:05 AM)* Value Reference Range H emoglobin A1c % 6.8 H <6.0 - % * E stimated Average Glucose 148 - mg/dL 4.?Others? Continue metFORMIN HCl ER Tablet Extended Release 24 Hour, 500 MG, TAKE 1 TABLET BY MOUTH ONCE DAILY WITH EVENING MEAL;?Continue Clindamycin HCl Capsule, 300 MG, 2 capsules, Orally, in am beforedental work;?Continue amLODIPine Besylate Tablet, 10 MG, Take 1 tablet by mouth once daily. ? * Procedure Codes: 8 1002 URINE-NO MICRO * Preventive Medicine: Counseling: C are goal follow-up plan: Counseling for abnormal BMI given Y es Above Normal BMI Follow-up D ietary management education, guidance, and counseling DM Care Plan: P atient Lifestyle Goals P atient wants to be able to manage diabetes without too much effort. T reatment Goals H bA1C < 7.0, Blood Sugars less than < 115. B arriers n o barriers. S elf-Managment Goals W ork on weight loss, with a goal of losing 1 lb per week. * Follow Up: 4 Months (Reason: OV) * Images: * Sign off status: Completed true * Provider: Brandie Sharpe MD Date: 04/28/2025 Generated for Petri ng/Fajoseg/eTransmitting on: 08/29/2025 01:02 PM EDT History and Physical Notes * HPI (History of Present Illness) Category Sub-Category Detail Notes Depression Screening PHQ-9 Little inte rest or pleasure in doing things: Not at all Feeling down, depressed, or hopeless: No t at all Trouble falling or staying asleep, or sl eeping too much: Not at all Feeling tired or having little energy: S everal days Poor appetite or overeating: Not at all [...] some way: Not at all Total Score: 1 Interpretation: Minimal Depression COVID-19 Screening Questions Have you had any new onset fever, chills, cough, congestion, sore throat, shortness of breath, muscle aches?: No SDOH Questions SDOH Questions In the [...] no acute distress, calm and relaxed, obese, man HEAD: atraumatic, normocep halic EYES: eomi, [...]
[2025-08-29 12:38] LABS: Anion Gap 14 (12-20); Blood Urea Nitrogen 26 mg/dL (9-16); Calcium 9.2 mg/dL (8.4-10.2); Carbon Dioxide 23 mmol/L (22-29); Chloride 109 mmol/L (96-108); Estimated Glomerular Filt Rate 45; Potassium 4.6 mmol/L (3.3-5.1); Sodium 141 mmol/L (135-145)
--- OUTSIDE RECORDS SUMMARY | 2025-08-29 13:03 | XMS_ITS | Clinical Summary ---
Author Organization [facility] Address [address] [place] [address] Care Team Providers Care Refrigerator Mover Name Role Phone Karrie Steve MD Primary Care Provider Unavailabl e Social History Tobacco Use Types Packs/Day Years Used Date Smoking Tobacco: Never Assessed Sex and Gender Information Value Date Recorded Sex Assigned at Not on file Legal Sex Male 7:36 AM EDT Gender Identity Not on file Sexual Orientation Not on file Plan of Treatment Not on file Care Teams Refrigerator Mover Relationship Specialty Start Date End Date Karrie Steve MD [address] [place] [address] PCP - General Internal Medicine 07/07/18
--- OUTSIDE RECORDS SUMMARY | 2025-08-29 13:03 | XMS_ITS | Clinical Summary ---
Author Organization [facility] ity Address [address] [place] [address] Care Team Providers Care Hair Stylist Name Role Phone Unavailable Primary Care Provider [...]
--- OUTSIDE RECORDS SUMMARY | 2025-08-29 13:03 | XMS_ITS | Patient Health Record ---
Author Organization Carlos Alberto Sharpe III, MD Address [address] [place] [address] [place] [address] Care Team Providers Care Assembler [employer] Spider Name Role Phone Dr. Carlos Alberto Sharpe III Primary Care Provider [phone] Allergies Allergen (clinical drug ingredient) Drug/Non Drug [...] Panel Reviewed date:04/29/2025 05:40:37 AM Interpretation: Performing Lab:[facility], [address] [place] [phone] Notes/Report: Triglycerides 70 <150 mg/dL Desirable Triglyceride: [...] Random Reviewed date:04/29/2025 05:40:37 AM Interpretation: Performing Lab:[address] [phone] Notes/Report: Creatinine Urine 118.42 Microalbumin Urine 6.0 Microalbum/Creatinine Ratio Ur 5.0 <30 ug/mg cr Albumin/Creatinine Ratio Reference Ranges: Normal: < 30 ug/mg creatinine Microalbuminuria: 30 - 300 ug/mg creatinine Clinical Albuminuria: > 300 ug/mg creatinine Hemoglobin A1c Reviewed date:04/29/2025 05:40:37 AM Interpretation: Performing Lab:[address] [phone] Notes/Report: Hemoglobin A1c % 6.8 <6.0 % [...] average glucose, using the formula of the Q5S-Fxtaaxr Average Glucose study (ADAG), Diabetes Care, Vol.31,#8, 2007 Glucose, Whole Blood Reviewed date:11/12/2024 08:50:35 PM Interpretation: Performing Lab:[facility], [address] [place] [phone] Notes/Report: Glucose, Whole Blood 134 60-115 mg/dL METER # : [id number] Complete Blood Count Auto Di ff Reviewed date:04/29/2025 05:40:37 AM Interpretation: Performing Lab:[facility], [address] [place] [phone] Notes/Report: White Blood Count 7.8 4.8-10.8 X10*3/uL [...] NRBC Abs Auto 0.000 0.0-0.012 X10*3/uL Comprehensive [place]. Panel Fa st Reviewed date:04/29/2025 05:40:37 AM Interpretation: Performing Lab:[facility], [address] [place] [phone] Notes/Report: Sodium 141 135-145 mmol/L Potassium 4.5 [...] Antigen Reviewed date:04/29/2025 05:40:37 AM Interpretation: Performing Lab:[address] [address] Notes/Report: Prostate Specific Antigen 1.44 <0.05-4.0 ng/mL PSA methodology: Ernandez Alinity i Chemiluminescent Microparticle Immunoassay (CMIA) Diabetic Eye Exam Reviewed date:06/16/2025 10:24:28 AM Interpretation:undefined Performing Lab: Notes/Report: undefined Basic Metabolic Panel Reviewed date:08/26/2025 08:56:00 PM Interpretation: Performing Lab:[address] [address] Notes/Report: Sodium 140 135-145 mmol/L Potassium 4.8 3.3-5.1 mmol/L Chloride 107 96-108 mmol/L Carbon Dioxide 25 22-29 mmol/L Anion Gap 13 12-20 Blood Urea Nitrogen 22 9-16 mg/dL Creatinine 1.54 0.5-1.4 mg/dL Estimated Glomerular Filt Rate 43 Chronic Kidney Disease: Estimated GFR < 60 mL/min/1.73m2 Severe Kidney Disease: Estimated GFR < 15 mL/min/1.73m2 Glucose Random 156 60-115 mg/dL Calcium 9.4 8.4-10.2 mg/dL Basic Metabolic Panel (Not y et reviewed by provider) Interpretation: Performing Lab:[address] [address] Notes/Report: Sodium 141 135-145 mmol/L Potassium 4.6 3.3-5.1 mmol/L Chloride 109 96-108 mmol/L Carbon Dioxide 23 22-29 mmol/L Anion Gap 14 12-20 Blood Urea Nitrogen 26 9-16 mg/dL Creatinine 1.49 0.5-1.4 mg/dL Estimated Glomerular Filt Rate 45 Chronic Kidney Disease: Estimated GFR < 60 mL/min/1.73m2 Severe Kidney Disease: Estimated GFR < 15 mL/min/1.73m2 Glucose Random 139 60-115 mg/dL Calcium 9.2 8.4-10.2 mg/dL Reason For Referral No Information [...] Eliquis 5 MG TAKE 1 TABLET BY CHIRSTIE TH TWICE DAILY Oral Active Multaq 400 [...] Problem Status W/U Status Risk Notes Problem 004881011252240 Obesity (BMI 30.0-34.9) (E66.9) Active confirmed His [...] restricted in fat calories and sodium. Problem 966607454 Thrombocytopenia (D69.6) Active confirmed His platelets wereto 1 27,000. He has had no bleeding and he is avoiding aspirin. The value will be observed without treatment. No change in his regimen was needed. Problem 383509218 Mixed hyperlipidemia (E78.2) Active confirmed His fasting lipids are currently stable and no change in his regimen was necessary. Problem 260332036 Anticoagulated (Z79.01) Active confirmed Problem 80855093 Essential hypertension (I10) Active confirmed His blood pressure was controlled at 134/80 and no change in his regimen was needed today. I have recommended aggressive weight loss and sodium restriction. Problem 09859192 Atrial fibrillation, unspecified type (I48.91) Active confirmed His heart rate was irrregular today. He was sent for an EKG to determine his rhythm. He was instructed to resume the Multaq and continue the anticoagulatio n. His heart rate is well controlled. Problem 140277954 Benign prostatic hyperplasia, unspecified whether lower urinary tract symptoms present (N40.0) Active confirmed We have discussed lifestyle modifications that could reduce nocturia. He is currently rising between 173 times a night. 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 He has lost 9 pounds. His hemoglobin A1c is 6.8. No change in his regimen was made. Problem 3590707031410624 Arthritis of right knee (M17.11) Active confirmed [...] Diagnosis Carlos Alberto Sharpe III, MD [address] [place] [address] [place] [address] 08/29/2024 Carlos Alberto Sharpe 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, unspecified CKD stage, unspecified whether buttermaker insulin use E11.22 ; Mixed hyperlipidemia E78.2 ; Benign prostatic hyperplasia, unspecified whether lower urinary tract symptoms present N40.0 ; Essential hypertension I10 ; Arthritis of right knee M17.11 ; Atrial fibrillation, unspecified type I48.91 and Thrombocytopenia D69.6 Carlos Alberto Sharpe III, MD [address] [place] [address] [place] [address] 11/24/2024 Carlos Alberto Sharpe 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, unspecified CKD stage, unspecified whether correction insulin use E11.22 ; Atrial fibrillation, unspecified type I48.91 ; Essential hypertension I10 ; Mixed hyperlipidemia E78.2 ; Benign prostatic hyperplasia, unspecified whether lower urinary tract symptoms present N40.0 and Obesity (BMI 30.0-34.9) E66.9 Carlos Alberto Sharpe III, MD [address] [place] [address] [place] [phone] 12/21/2024 Carlos Alberto Campbell 2 diabetes letty itus with diabetic chronic kidney disease, unspecified CKD stage, unspecified whether buttermaker insulin use E11.22 ; Essential hypertension I10 ; Mixed hyperlipidemia E78.2 ; Benign prostatic hyperplasia, unspecified whether lower urinary tract symptoms present N40.0 ; Obesity (BMI 30.0-34.9) E66.9 ; Thrombocytopenia D69.6 and Arthritis of right knee M17.11 Carlos Alberto Sharpe III, MD [address] [place] [address] [place] [address] 04/28/2025 Carlos Alberto Sharpe 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, unspecified CKD stage, unspecified whether correction insulin use E11.22 ; Benign prostatic hyperplasia, unspecified whether lower urinary tract symptoms present N40.0 ; Mixed hyperlipidemia E78.2 ; Essential hypertension I10 ; Arthritis of right knee M17.11 ; Atrial fibrillation, unspecified type I48.91 ; Anticoagulated Z79.01 and Thrombocytopenia D69.6 Carlos Alberto Sharpe III, MD [address] [place] [address] [place] [address] 10/21/2024 Carlos Alberto Sharpe 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, unspecified CKD stage, unspecified whether correction insulin use E11.22 Carlos Alberto Sharpe III, MD [address] [place] [address] [address] [place], [place] [address] 12/06/2024 Carlos Alberto Sharpe III, MD [address] [place] [address] [address] [place], [place] [phone] 12/12/2024 Carlos Alberto Sharpe III, MD [address] [place] [address] [address] [place], [place] [address] 12/12/2024 Carlos Alberto Sharpe III, MD [address] [place] [address] [address] [place], [place] [address] 02/13/2025 Carlos Alberto Sharpe Assessments Encounter Date Diagnosis (ICD Code) Assessment Notes Treat ment Notes Treatment Clinical Notes 08/29/2024 Mixed hyperlipidemia (ICD-10 - E78.2) His lipids are currently stable and no change in his regimen was needed. 08/29/2024 Type 2 diabetes mellitus with diabetic chronic kidney disease, unspecified CKD stage, unspecified whether correction insulin use (ICD-10 - E11.22) His hemoglobin [...] kidney disease, unspecified CKD stage, unspecified whether correction insulin use (ICD-10 - E11.22) His hemoglobin [...] kidney disease, unspecified CKD stage, unspecified whether buttermaker insulin use (ICD-10 - E11.22) His hemoglobin [...] kidney disease, unspecified CKD stage, unspecified whether correction insulin use (ICD-10 - E11.22) He has been compliant with his medication. He has lost 9 pounds. His hemoglobin A1c is 6.8. No change in his regimen was made. 10/21/2024 Type 2 diabetes mellitus with diabetic chronic kidney disease, unspecified CKD stage, unspecified whether buttermaker insulin use (ICD-10 - E11.22) His hemoglobin [...] WITH AUTO DIFF 04/28/2025 Basic Metabolic Panel 08/29/2025 Lipid Panel 11/26/2023 Lipid Panel 08/29/2024 Microalbumin, Random 11/26/2023 Microalbumin, Random 08/26/2023 ECG holter monitor 48 hour 04/22/2023 ECG 12 lead EKG 04/22/2023 ECG 12 lead EKG 11/24/2024 Hemoglobin A1c 08/29/2024 Hemoglobin A1c 11/26/2023 Next Appt Details Provider Name:Carlos Alberto Sharpe , 08/30/2025 10:00:00 AM, [address] [place] [address] [address] M[address], [place], [address], Provider Name:Carlos Alberto Sharpe , 05/01/2026 10:30:00 AM, [address] [place] [address] KALANI MENARD, [place], [address], Insurance Providers Payer Name Payer Address Payer Phone Subscriber Number Group Number Insured Name Patient Relationship to Insured Coverage Start Date Coverage End Date [facility] [address] [facility] [address] [place] [phone] [id number] MINA GOMEZ Self - patient is the insured MEDICARE NGS [address] [place] [phone] [id number] JASONMINA Self - patient is the insured Medical (General) History Medical History History ICD Code essential hypertension adult-onset diabetes mellitus hyperlipidemia osteoarthritis right knee BPH history of cataracts Atrial fibrillation Anticoagulated Surgical History Surgery Date(Month/Year) No history Age 50 Rectal Surgery in [place] Dr. Hue haider Age 30 Failed Vasectomy Age 18 Full upper dentures age 14 upper tooth denture bilateral knee replacentnts 2014 right eye cataract surgery 2019 Hospitalization History Reason Date(Month/Year) No history
== END 2025-08-29 11:34 | disposition home or self-care (01) ==
LOC: HO.LAB 11:33
PROVIDERS: PCP Internal Medicine Medical Oncology; Visit Provider Internal Medicine Cardiovascular Disease
DX: R74.8 Abnormal levels of other serum enzymes (principal)
CPT/HCPCS: 36415; 80048